=== PATIENT | male | born 1970 | race Caucasian/White ===

== ENCOUNTER → 2016-10-15 | Outpatient (CLI) | payer BC ==
[~2016-10-15] MED LIST: ATEN-173 PO; CLON0.5T3 PO; MULT-506 PO
--- NOTE | 2016-10-15 07:47 | DIAGNOSTIC IMAGING REPORT ---
ABDOMEN COMPLETE (US) CLINICAL HISTORY: Right upper quadrant abdominal pain. COMPARISON STUDY: Abdominal ultrasound November 18, 2014. FINDINGS: The liver is sonographically normal. There is no biliary ductal dilatation. The common bile duct measures 4 mm in caliber. There are no gallstones. The pancreas is largely obscured by overlying bowel gas. The size of the spleen is normal. The right kidney measures 10 cm and the left measures 9.3 cm. There is no hydronephrosis. The abdominal aorta is partially obscured but visualized portions are normal in caliber. There is no ascites. IMPRESSION: 1. No gallstones or biliary ductal dilatation. 2. Partially obscured pancreas. 3. No hydronephrosis. Electronically signed by: Jarvis Rivas M.D. 10/15/2016 7:45 AM Dictated Date/Time: 10/15/2016 7:40 AM
== END | disposition home or self-care (01) ==
LOC: C.ULTR 07:06
PROVIDERS: ATTEND Family Medicine
DX: R10.11 Right upper quadrant pain (principal)

== ENCOUNTER → 2016-11-19 | Outpatient (CLI) | payer BC ==
[~2016-11-19] MED LIST changes: +SINCALIDE INJ 1.6 MCG in SODIUM CHLORIDE 0.9% 100ML 100 ML IV ONE
--- NOTE | 2016-11-19 15:47 | DIAGNOSTIC IMAGING REPORT ---
CHEST 2 VIEWS ROUTINE HISTORY: 46 years-old Male EPIGASTRIC PAIN, PT WENT TO [facility] acute epigastric pain with shortness of breath and wheezing. COMPARISON: Chest radiograph 11/18/2014 TECHNIQUE: PA and lateral views of the chest FINDINGS: Cardiomediastinal and hilar silhouettes are within normal limits. There is atherosclerosis of the aorta. No pneumothorax, pleural effusion, focal airspace consolidation or overt pulmonary edema. Lungs are mildly hyperinflated. Bones of the chest appear grossly intact. IMPRESSION: No acute cardiopulmonary process. The above report was generated using voice recognition software. It may contain grammatical, syntax or spelling errors. Electronically signed by: Pablo Flores M.D. 11/19/2016 3:46 PM Dictated Date/Time: 11/19/2016 3:45 PM
--- NOTE | 2016-11-19 15:47 | DIAGNOSTIC IMAGING REPORT ---
HEPATOBILIARY EF IMAGING CLINICAL HISTORY: 46 years-old Male presenting with EPIGASTRIC PAIN, PT TO XRAY AFTER PLEASE. TECHNIQUE: Dynamic imaging of the gallbladder was initiated 65 minutes after administration of 5.3 mCi of technetium 99m Choletec. Imaging was obtained every 5 minutes over a span of 40 minutes. 1.6 mcg of sincalide was injected 5 minutes prior to the start of imaging. The gallbladder ejection fraction was calculated. COMPARISON: Ultrasound from 10/15/2016. FINDINGS: The hepatobiliary scan shows normal filling of the gallbladder at the start of imaging. Expected activity within the common duct and passage into the bowel. Gallbladder ejection fraction measured at 68% (normal greater than 50%). IMPRESSION: 1. Normal gallbladder ejection fraction. No evidence of chronic cholecystitis. Electronically signed by: Dominic Cortes M.D. 11/19/2016 3:45 PM Dictated Date/Time: 11/19/2016 3:42 PM
== END | disposition home or self-care (01) ==
LOC: C.NUCL 12:55
PROVIDERS: ATTEND Internal Medicine Gastroenterology
DX: R06.2 Wheezing (principal); R10.13 Epigastric pain

== ENCOUNTER → 2016-12-15 | Outpatient (CLI) | payer BC ==
[~2016-12-15] MED LIST changes: +ALBUAER INH; +AMLO-110 PO; +ARIP30TA3 PO; +DOCU100C31 PO; +FLAXCAP PO; +MONT1TAB3 PO; +MULT-190 PO; +PRT/20 PO; +SIMV10TA2 PO; -SINCALIDE INJ 1.6 MCG in SODIUM CHLORIDE 0.9% 100ML 100 ML IV ONE; +TOPI50TA16 PO
[2016-12-15 19:19] LABS: BASO % 0.2 %; BASO ABS # 0.02 K/uL (0-0.2); COMPLETE YES; EOS % 4.3 %; HEMATOCRIT 41.9 % (42-52); IG% 0.5 %; LYMPH % 39.1 %; LYMPH ABS # 3.18 K/uL (1.2-3.4); MEAN CELL VOLUME 88.2 fL (80-100); MEAN CORPUSCULAR HEMOGLOBIN 30.3 pg (25-34); MEAN CORPUSCULAR HGB CONC 34.4 g/dl (32-36); MEAN PLATELET VOLUME 9.2 fL (7.4-10.4); MONO % 5.7 %; NEUT % 50.2 %; PLATELET COUNT 208 K/uL (130-400); RED BLOOD COUNT 4.75 M/uL (4.7-6.1); WHITE BLOOD COUNT 8.13 K/uL (4.8-10.8)
[2016-12-15 19:28] LABS: URINE APPEARANCE CLEAR (CLEAR); URINE BILIRUBIN NEG (NEG); URINE COLOR YELLOW; URINE NITRITE NEG (NEG); URINE SPECIFIC GRAVITY 1.007 (1.000-1.030); UROBILINOGEN NEG (NEG)
[2016-12-15 19:35] LABS: MANUAL MICROSCOPIC REQUIRED? NO; REVIEW REQ? NO
[2016-12-15 19:38] LABS: ALT/SGPT 95 U/L (12-78); AST/SGOT 30 U/L (15-37); BLOOD UREA NITROGEN 11 mg/dl (7-18); BUN/CREATININE RATIO 8.4 (10-20); CALCIUM 8.6 mg/dl (8.5-10.1); CARBON DIOXIDE 26 mmol/L (21-32); CHLORIDE 110 mmol/L (98-107); CREATININE 1.26 mg/dl (0.60-1.40); GLUCOSE 92 mg/dl (70-99); SODIUM 140 mmol/L (136-145)
[2016-12-15 19:39] LABS: BENZODIAZEPINE, URINE NEG (NEG); COCAINE,URINE NEG (NEG); PHENCYCLIDINE, URINE NEG (NEG)
[2016-12-15 19:49] LABS: ALB/GLOB RATIO 1.3 (0.9-2); ALKALINE PHOSPHATASE 82 U/L (45-117); CHOLESTEROL 149 mg/dl (0-200); CHOLESTEROL/HDL RATIO 2.3; HDL CHOLESTEROL 66 mg/dl; LDL CHOLESTEROL CALCULATED 68 mg/dl; TRIGLYCERIDES 76 mg/dl (0-150); VERY LOW DENSITY LIPOPROT CALC 15 mg/dl
[2016-12-16 06:35] LABS: ESTIMATED AVERAGE GLUCOSE 105 mg/dl; HA1C FLAG Normal (Normal)
== END | disposition home or self-care (01) ==
LOC: C.LAB 18:43
PROVIDERS: ATTEND Psychiatry & Neurology Psychiatry
DX: F39 Unspecified mood [affective] disorder (principal); F41.9 Anxiety disorder, unspecified; G47.9 Sleep disorder, unspecified

== ENCOUNTER 2022-10-19 22:06 | Observation (INO) ==
[2022-10-19] MEDS ORDERED: LORazepam 2 MG/1 ML VIAL IV STA (22:23)
[2022-10-19] MEDS ORDERED: SODIUM CHLORIDE 0.9% 1,000 ML IV SCH (22:30)
[2022-10-19 22:58] LABS: Basophils # (auto) 0.02 K/uL (0.00-0.20); Basophils % (auto) 0.2 %; Hemoglobin 15.1 g/dl (14.0-18.0); Immature Granulocytes # (auto) 0.08 K/uL (0.01-0.20); Immature Granulocytes % (auto) 0.6 %; Lymphocytes # (auto) 2.25 K/uL (1.20-3.40); Lymphocytes % (auto) 18.1 %; Mean Corpuscular Hemoglobin 29.4 pg (25.0-34.0); Mean Corpuscular Hgb Conc 34.3 g/dL (32.0-36.0); Mean Corpuscular Volume 85.8 fL (80.0-100.0); Mean Platelet Volume 9.7 fL (9.4-12.4); Monocytes % (auto) 5.6 %; Neutrophils # (auto) 9.37 K/uL (1.40-6.50); Neutrophils % (auto) 75.5 %; Platelet Count 273 K/uL (130-400); RDW Coefficient of Variation 13.2 % (11.5-14.5); RDW Standard Deviation 41.6 fL (36.4-46.3); Red Blood Count 5.13 M/uL (4.70-6.10); White Blood Count 12.42 K/ul (4.8-10.8)
[2022-10-19 23:17] LABS: BUN Creatinine Ratio 15.5 (10-20); Calcium 9.5 mg/dl (8.6-10.3); Creatinine Clr Calc Pharmacy 54.4 ml/min; Est GFR (African American) 53.3 ml/min; Potassium 3.9 mmol/L (3.5-5.1)
[2022-10-19 23:23] LABS: Troponin I High Sensitivity 2.5 pg/ml (0-20)
--- NOTE | 2022-10-19 23:26 | Emergency Department Note ---
History of Present Illness General Chief complaint: Illness Stated complaint: "FACE LOCKING UP" Time Seen by Provider: 10/19/22 22:22 History of Present Illness This is a 52-year-old male presenting to the emergency department via EMS for evaluation that his face is "locking up". Patient has recent diagnosis of Lyme disease from this facility about a week ago, and is tolerating his doxycycline well. He recently followed with nephrology for some chronic kidney disease. The patient was at home unplugging a television when he felt tightness primarily in the left side of his face and had difficulty moving his jaw. He did not have any neck pain, chest pain, chest tightness, or shortness of breath with this event. He contacted EMS, and on arrival the patient was quite diaphoretic and had a difficult time with moving his jaw to speak. Patient has been able to move arms and legs without any difficulty. He is on carbidopa levodopa for parkinsonian-like disease, which could be contributing to facial spasm. 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 The patient does not have any recent fevers or chills. On arrival to triage he is nervous, but otherwise without complaint. Home Medications Medication Instructions Recorded Confirmed Type pantoprazole 20 mg tablet,delayed 20 mg PO QPM 07/23/19 10/19/22 History release simvastatin 10 mg tablet 10 mg PO QPM 07/23/19 10/19/22 History montelukast 10 mg tablet 10 mg PO QPM 10/20/19 10/19/22 History metoprolol succinate 50 mg 50 mg PO QPM 08/17/20 10/19/22 History tablet,extended release 24 hr ipratropium 0.5 mg-albuterol 3 mg 3 ml inhalation QID PRN shortness 08/22/20 10/19/22 Rx (2.5 mg base)/3 mL nebulization of breath or wheezing #120 vials soln ipratropium 20 mcg-albuterol 100 1 puff inhalation Q6H PRN 09/07/21 10/19/22 Rx mcg/actuation mist for inhalation Shortness Of Breath #4 grams (Combivent Respimat) benralizumab 30 mg/mL subcutaneous See Rx Instructions .Route 11/30/21 10/19/22 Rx syringe (Fasenra) .COMPLEX #1 mL fluoxetine 20 mg capsule (Prozac) 20 mg PO QAM 04/13/22 10/19/22 History nwlpcsxfgb-kgdcopybtsbmo-agwfglwb 1 - 2 tab PO .COMPLEX PRN headache 04/14/22 10/19/22 Rx 50 mg-325 mg-40 mg tablet #12 tabs carbidopa 25 mg-levodopa 100 mg 2 tab PO BID 90 days #360 tabs 07/14/22 10/19/22 Rx tablet (Sinemet) galcanezumab-gnlm 120 mg/mL 120 mg subcut .COMPLEX #1 mL 07/14/22 10/19/22 Rx subcutaneous pen injector (Emgality Pen) lurasidone 40 mg tablet (Latuda) 60 mg PO QPM 07/14/22 10/19/22 History rimegepant 75 mg disintegrating 75 mg PO .COMPLEX #8 tabs 07/14/22 10/19/22 Rx tablet (Nurtec ODT) rizatriptan 10 mg tablet (Maxalt) 10 mg PO .COMPLEX PRN migraine 07/14/22 10/19/22 Rx headache 30 days #9 tabs doxycycline hyclate 100 mg capsule 100 mg PO BID 14 days #28 caps 10/11/22 10/19/22 Rx fluticasone fur. 200 mcg-umeclid 1 ea inhalation QAM 10/11/22 10/19/22 History 62.5 mcg-vilant 25 mcg inhalat.powder (Trelegy Ellipta) ondansetron 4 mg disintegrating 4 mg PO Q6H PRN nausea and 10/11/22 10/19/22 Rx tablet vomiting #12 tabs Allergies Allergy/AdvReac Type Severity Reaction Status Date / Time peanut Allergy Intermediate Rash Verified 10/19/22 22:57 walnut Allergy Intermediate Rash Verified 10/19/22 22:57 lamotrigine Allergy Mild Rash Verified 10/19/22 22:57 pineapple Allergy Unknown Unknown Verified 10/19/22 22:57 tramadol AdvReac Mild NAUSEA/VOMI Verified 10/19/22 22:57 TING varenicline AdvReac Unknown Unknown Verified 10/19/22 22:57 Past Med/Surg History Medical History Essential hypertension Major depressive disorder Pulmonary nodule Surgical History H/O atrial septal defect repair S/P tonsillectomy Family History Father Aortic stenosis Grandfather (Maternal) Prostate cancer Grandfather (Paternal) Prostate cancer Sister Thyroid cancer Social History Smoking Status: Current every day smoker Tobacco Type: Cigarettes Age Started Using Tobacco: 18; Age Quit Using Tobacco: 44; packs per day: 1; Preferred Language: Nepali Communication Ability: Effective 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 Beliefs That Will Affect Care: None Feels Safe at Home: Yes Assistive Devices: None Review of Systems A total of 10 systems reviewed and were otherwise negative Physical Exam Vital Signs Vital Signs - 24 hr 10/19/22 22:09 10/19/22 22:28 Temperature 36.9 C Temperature Source Oral Pulse Rate 68 63 Respiratory Rate 18 Respiratory Effort / Characteristics Non-Labored Spontaneous Respiratory Depth Normal Blood Pressure 115/76 Blood Pressure Mean 89 Pulse Oximetry 98 Sepsis Recent Fever Within 48 Hours No Sepsis New/Unexplained Change in Mental Status No Sepsis Action Taken by Nursing No Action Required VITALS: Vitals are noted on the nurse's note and reviewed by myself. Vital signs stable. GENERAL: Well-developed, well-nourished, white male, who is in no acute distress and resting comfortably. Patient is cooperative with the examination. HEAD: Normocephalic atraumatic. MOUTH: Mucous membranes moist. Tonsils are not enlarged. Pharynx without erythema, blood, or exudate. Uvula midline. Airway patent. NECK: Supple without nuchal rigidity. No lymphadenopathy. No thyromegaly. Cervical spine is nontender. HEART: Regular rate and rhythm without murmurs gallops or rubs. LUNGS: Clear to auscultation bilaterally without wheezes, rales or rhonchi. No retractions or accessory muscle use. ABDOMEN: Positive normal bowel sounds x 4. Soft, nontender, without masses or organomegaly. No guarding or rebound tenderness. MUSCULOSKELETAL: No muscle atrophy, erythema, or edema noted. Full range of motion in all extremities. Course Administered Medications Carbidopa/Levodopa (Carbidopa/Levodopa 25/100mg Tab) 2 tab PO BID [facility] Stop: 11/19/22 08:59 Last Admin: 10/20/22 20:48 Dose: 2 tab Documented By: Admin: 10/20/22 09:17 Dose: 2 tab Documented By: POORNIMA Doxycycline Hyclate (Doxycycline Hyclate 100 Mg Cap) 100 mg PO BID [facility] Stop: 10/30/22 12:33 Last Admin: 10/20/22 20:48 Dose: 100 mg Documented By: Admin: 10/20/22 13:30 Dose: 100 mg Documented By: POORNIMA Fluoxetine HCl (Fluoxetine Hcl 20 Mg Cap) 20 mg PO QAM [facility] Stop: 11/19/22 08:59 Last Admin: 10/20/22 09:17 Dose: 20 mg Documented By: POORNIMA Fluticasone Furoate (Fluticasone Furoate 200mcg 14 Puffs/Inhaler) 1 puffs INH DAILY [facility] Stop: 11/19/22 08:59 Last Admin: 10/20/22 09:19 Dose: 1 puffs Documented By: POORNIMA Heparin Sodium (Porcine) (Heparin Sod 5,000 Unit/0.5 Ml Vial) 5,000 units SQ Q8 [facility] Stop: 11/19/22 05:59 Last Admin: 10/20/22 20:48 Dose: Not Given Documented By: Admin: 10/20/22 16:06 Dose: Not Given Documented By: Admin: 10/20/22 06:13 Dose: 5,000 units Documented By: ZAFAR Ceftriaxone Sodium 2,000 mg/ (Dextrose) 70 mls @ 100 mls/hr IV Q24H [facility]; Protocol Stop: 10/30/22 02:59 Last Infusion: 10/20/22 05:23 Dose: 0 mls/hr Documented By: Admin: 10/20/22 04:44 Dose: 100 mls/hr Documented By: ZAFAR Sodium Chloride (Nss 1000ml) 1,000 mls @ 80 mls/hr IV .[id number] [facility] Stop: 11/19/22 12:33 Last Admin: 10/20/22 13:33 Dose: 80 mls/hr Documented By: POORNIMA Lurasidone HCl (Lurasidone Hcl 40 Mg Tab) 60 mg PO QDD [facility] Stop: 11/19/22 16:29 Last Admin: 10/20/22 17:58 Dose: 60 mg Documented By: POORNIMA Montelukast Sodium (Montelukast Sodium 10 Mg Tablet) 10 mg PO QPM [facility] Stop: 11/19/22 20:59 Last Admin: 10/20/22 20:48 Dose: 10 mg Documented By: ZOË Pantoprazole Sodium (Pantoprazole 40 Mg Tab) 40 mg PO QPM [facility] Stop: 11/19/22 20:59 Last Admin: 10/20/22 20:48 Dose: 40 mg Documented By: ZOË Simvastatin (Simvastatin 10 Mg Tab) 10 mg PO QPM [facility] Stop: 11/19/22 20:59 Last Admin: 10/20/22 20:48 Dose: 10 mg Documented By: ZOË Umeclidinium/Vilanterol (Umeclidinium/Vilanterol 62.5/25mcg 7 Puffs/Inhaler) 1 puffs INH DAILY [facility] Stop: 11/19/22 08:59 Last Admin: 10/20/22 09:18 Dose: 1 puffs Documented By: POORNIMA Discontinued Medications Sodium Chloride (Nss 1000ml) 1,000 mls @ 999 mls/hr IV .Q1H1M [facility] Stop: 10/19/22 23:30 Last Infusion: 10/20/22 00:24 Dose: 0 mls/hr Documented By: Admin: 10/19/22 22:39 Dose: 999 mls/hr Documented By: Sodium Chloride (Nss 1000ml) 1,000 mls @ 999 mls/hr IV .Q1H1M [facility] Stop: 10/20/22 02:00 Last Infusion: 10/20/22 03:20 Dose: 0 mls/hr Documented By: Admin: 10/20/22 02:07 Dose: 999 mls/hr Documented By: Infusion: 10/20/22 02:06 Dose: 0 mls/hr Documented By: Admin: 10/20/22 00:31 Dose: 999 mls/hr Documented By: Vancomycin HCl 1,750 mg/ (Sodium Chloride) 535 mls @ 200 mls/hr IV NOW ONE Stop: 10/20/22 03:04 Last Admin: 10/20/22 01:07 Dose: 200 mls/hr Documented By: Piperacillin Sod/Tazobactam Sod (Zosyn) 4.5 gm in 120 mls @ 240 mls/hr IV NOW ONE Stop: 10/20/22 00:53 Last Infusion: 10/20/22 01:09 Dose: 0 mls/hr Documented By: Admin: 10/20/22 00:33 Dose: 240 mls/hr Documented By: Sodium Chloride (Nss 1000ml) 1,000 mls @ 125 mls/hr IV .Q8H [facility] Stop: 10/20/22 20:14 Last Infusion: 10/20/22 13:39 Dose: 0 mls/hr Documented By: Admin: 10/20/22 11:31 Dose: 125 mls/hr Documented By: Infusion: 10/20/22 11:31 Dose: 125 mls/hr Documented By: Admin: 10/20/22 04:45 Dose: 125 mls/hr Documented By: ZAFAR Lorazepam (Lorazepam 2 Mg/1 Ml Vial) 0.5 mg IV NOW STA Stop: 10/19/22 22:24 Last Admin: 10/19/22 22:42 Dose: 0.5 mg Documented By: Medical Decision Making Differential Diagnosis Differential diagnosis includes, but is not limited to: Myocardial infarction, dysrhythmia, pericarditis, pneumothorax, aortic aneurysm/dissection, DVT/PE, anxiety, GERD, PUD, electrolyte imbalance, thyroid disorder, pneumonia, bronchitis, pancreatitis, and others Laboratory Data 10/19/22 22:34 10/19/22 22:34 Lab Results 10/19/22 10/19/22 10/19/22 Range/Units 22:34 22:34 22:34 WBC 12.42 H (4.8-10.8) K/ul RBC 5.13 (4.70-6.10) M/uL Hgb 15.1 (14.0-18.0) g/dl Hct 44.0 (42.0-52.0) % MCV 85.8 (80.0-100.0) fL MCH 29.4 (25.0-34.0) pg MCHC 34.3 (32.0-36.0) g/dL RDW Std Deviation 41.6 (36.4-46.3) fL RDW Coeff of Ian 13.2 (11.5-14.5) % Plt Count 273 (130-400) K/uL MPV 9.7 (9.4-12.4) fL Immature Gran % (Auto) 0.6 % Neut % (Auto) 75.5 % Lymph % (Auto) 18.1 % [place] % (Auto) 5.6 % Eos % (Auto) 0.0 % Baso % (Auto) 0.2 % Neut # (Auto) 9.37 H (1.40-6.50) K/uL Lymph # (Auto) 2.25 (1.20-3.40) K/uL [place] # (Auto) 0.70 H (0.11-0.59) K/uL Eos # (Auto) 0.00 (0.00-0.50) K/uL Baso # (Auto) 0.02 (0.00-0.20) K/uL Immature Gran # (Auto) 0.08 (0.01-0.20) K/uL Sodium 135 L (136-145) mmol/L Potassium 3.9 (3.5-5.1) mmol/L Chloride 100 (98-107) mmol/L Carbon Dioxide 24 (21-32) mmol/L Anion Gap 11 (3-11) BUN 26 H (6-23) mg/dl Creatinine 1.68 H (0.6-1.4) mg/dl Est Cr Clr Drug Dosing 54.4 ml/min Est GFR ( Amer) 53.3 ml/min Est GFR (Non-Af Amer) 46.0 ml/min BUN/Creatinine Ratio 15.5 (10-20) Glucose 138 H (70-99(Fasting)) mg/dl Lactate (0.4-2.0) mmol/L Calcium 9.5 (8.6-10.3) mg/dl Magnesium 1.8 (1.7-2.4) mg/dl Total Bilirubin 0.5 (0.2-1.0) mg/dl AST 13 (13-39) U/L ALT 3 L (7-52) U/L Alkaline Phosphatase 63 (34-104) U/L Troponin I High Sens 2.5 (0-20) pg/ml Total Protein 7.2 (6.0-8.3) gm/dl Albumin 4.7 (3.4-5.0) gm/dl Globulin 2.5 (2.5-4.0) gm/dl Albumin/Globulin Ratio 1.9 (0.9-2) Free T4 (0.61-1.60) ng/dl Free T3 (2.3-4.2) pg/ml Ethyl Alcohol mg/dL (<10.0) mg/dl Adenovirus (PCR) Not Detected (NotDetected) B. pertussis DNA (PCR) Not Detected (NotDetected) B.parapertussis DNA PCR Not Detected (NotDetected) C. pneumoniae DNA (PCR) Not Detected (NotDetected) Coronavirus OC43 (PCR) Not Detected (NotDetected) Coronavirus HKU1 (PCR) Not Detected (NotDetected) Coronavirus 229E (PCR) Not Detected (NotDetected) SARS-CoV-2 (PCR) Not Detected (NotDetected) Coronavirus NL63 (PCR) Not Detected (NotDetected) Human Metapneumovir PCR Not Detected (NotDetected) Influenza Type A (PCR) Not Detected (NotDetected) Influenza Type B (PCR) Not Detected (NotDetected) M. pneumoniae (PCR) Not Detected (NotDetected) Parainfluenza 1 (PCR) Not Detected (NotDetected) Parainfluenza 2 (PCR) Not Detected (NotDetected) Parainfluenza 3 (PCR) Not Detected (NotDetected) Parainfluenza 4 (PCR) Not Detected (NotDetected) RSV (PCR) Not Detected (NotDetected) Entero/Rhino (PCR) Not Detected (NotDetected) 10/19/22 10/19/22 10/19/22 Range/Units 22:34 22:34 23:56 WBC (4.8-10.8) K/ul RBC (4.70-6.10) M/uL Hgb (14.0-18.0) g/dl Hct (42.0-52.0) % MCV (80.0-100.0) fL MCH (25.0-34.0) pg MCHC (32.0-36.0) g/dL RDW Std Deviation (36.4-46.3) fL RDW Coeff of Ian (11.5-14.5) % Plt Count (130-400) K/uL MPV (9.4-12.4) fL Immature Gran % (Auto) % Neut % (Auto) % Lymph % (Auto) % [place] % (Auto) % Eos % (Auto) % Baso % (Auto) % Neut # (Auto) (1.40-6.50) K/uL Lymph # (Auto) (1.20-3.40) K/uL [place] # (Auto) (0.11-0.59) K/uL Eos # (Auto) (0.00-0.50) K/uL Baso # (Auto) (0.00-0.20) K/uL Immature Gran # (Auto) (0.01-0.20) K/uL Sodium (136-145) mmol/L Potassium (3.5-5.1) mmol/L Chloride (98-107) mmol/L Carbon Dioxide (21-32) mmol/L Anion Gap (3-11) BUN (6-23) mg/dl Creatinine (0.6-1.4) mg/dl Est Cr Clr Drug Dosing ml/min Est GFR ( Amer) ml/min Est GFR (Non-Af Amer) ml/min BUN/Creatinine Ratio (10-20) Glucose (70-99(Fasting)) mg/dl Lactate (0.4-2.0) mmol/L Calcium (8.6-10.3) mg/dl Magnesium (1.7-2.4) mg/dl Total Bilirubin (0.2-1.0) mg/dl AST (13-39) U/L ALT (7-52) U/L Alkaline Phosphatase (34-104) U/L Troponin I High Sens (0-20) pg/ml Total Protein (6.0-8.3) gm/dl Albumin (3.4-5.0) gm/dl Globulin (2.5-4.0) gm/dl Albumin/Globulin Ratio (0.9-2) Free T4 1.24 (0.61-1.60) ng/dl Free T3 4.14 (2.3-4.2) pg/ml Ethyl Alcohol mg/dL < 10.0 (<10.0) mg/dl Adenovirus (PCR) (NotDetected) B. pertussis DNA (PCR) (NotDetected) B.parapertussis DNA PCR (NotDetected) C. pneumoniae DNA (PCR) (NotDetected) Coronavirus OC43 (PCR) (NotDetected) Coronavirus HKU1 (PCR) (NotDetected) Coronavirus 229E (PCR) (NotDetected) SARS-CoV-2 (PCR) (NotDetected) Coronavirus NL63 (PCR) (NotDetected) Human Metapneumovir PCR (NotDetected) Influenza Type A (PCR) (NotDetected) Influenza Type B (PCR) (NotDetected) M. pneumoniae (PCR) (NotDetected) Parainfluenza 1 (PCR) (NotDetected) Parainfluenza 2 (PCR) (NotDetected) Parainfluenza 3 (PCR) (NotDetected) Parainfluenza 4 (PCR) (NotDetected) RSV (PCR) (NotDetected) Entero/Rhino (PCR) (NotDetected) 10/19/22 Range/Units 23:56 WBC (4.8-10.8) K/ul RBC (4.70-6.10) M/uL Hgb (14.0-18.0) g/dl Hct (42.0-52.0) % MCV (80.0-100.0) fL MCH (25.0-34.0) pg MCHC (32.0-36.0) g/dL RDW Std Deviation (36.4-46.3) fL RDW Coeff of Ian (11.5-14.5) % Plt Count (130-400) K/uL MPV (9.4-12.4) fL Immature Gran % (Auto) % Neut % (Auto) % Lymph % (Auto) % [place] % (Auto) % Eos % (Auto) % Baso % (Auto) % Neut # (Auto) (1.40-6.50) K/uL Lymph # (Auto) (1.20-3.40) K/uL [place] # (Auto) (0.11-0.59) K/uL Eos # (Auto) (0.00-0.50) K/uL Baso # (Auto) (0.00-0.20) K/uL Immature Gran # (Auto) (0.01-0.20) K/uL Sodium (136-145) mmol/L Potassium (3.5-5.1) mmol/L Chloride (98-107) mmol/L Carbon Dioxide (21-32) mmol/L Anion Gap (3-11) BUN (6-23) mg/dl Creatinine (0.6-1.4) mg/dl Est Cr Clr Drug Dosing ml/min Est GFR ( Amer) ml/min Est GFR (Non-Af Amer) ml/min BUN/Creatinine Ratio (10-20) Glucose (70-99(Fasting)) mg/dl Lactate 2.5 H* (0.4-2.0) mmol/L Calcium (8.6-10.3) mg/dl Magnesium (1.7-2.4) mg/dl Total Bilirubin (0.2-1.0) mg/dl AST (13-39) U/L ALT (7-52) U/L Alkaline Phosphatase (34-104) U/L Troponin I High Sens (0-20) pg/ml Total Protein (6.0-8.3) gm/dl Albumin (3.4-5.0) gm/dl Globulin (2.5-4.0) gm/dl Albumin/Globulin Ratio (0.9-2) Free T4 (0.61-1.60) ng/dl Free T3 (2.3-4.2) pg/ml Ethyl Alcohol mg/dL (<10.0) mg/dl Adenovirus (PCR) (NotDetected) B. pertussis DNA (PCR) (NotDetected) B.parapertussis DNA PCR (NotDetected) C. pneumoniae DNA (PCR) (NotDetected) Coronavirus OC43 (PCR) (NotDetected) Coronavirus HKU1 (PCR) (NotDetected) Coronavirus 229E (PCR) (NotDetected) SARS-CoV-2 (PCR) (NotDetected) Coronavirus NL63 (PCR) (NotDetected) Human Metapneumovir PCR (NotDetected) Influenza Type A (PCR) (NotDetected) Influenza Type B (PCR) (NotDetected) M. pneumoniae (PCR) (NotDetected) Parainfluenza 1 (PCR) (NotDetected) Parainfluenza 2 (PCR) (NotDetected) Parainfluenza 3 (PCR) (NotDetected) Parainfluenza 4 (PCR) (NotDetected) RSV (PCR) (NotDetected) Entero/Rhino (PCR) (NotDetected) MDM Narrative Physical exam and history were performed. Nursing notes, EMR, and Medication List were personally reviewed. No social concerns were identified as barriers to patients care. Patient appears to have facial pain/spasm bring him to the ER. Patient arrives to the ER during a period of very high ER volume and acuity with extended wait times of greater than 5 hours. The patient complained from home for EMS was somewhat vague, and I did meet EMS in triage with the patient to perform initial stroke evaluation. On arrival to the ER the patient seems well and essentially is without complaints. As the triage process began, the patient was answering questions without any difficulty. He did voice some concern that he wanted something "for my nerves". The patient then commented that he was very "tired". After stating that he was tired the patient put his head down and had a syncopal episode. He was not responsive to sternal rub. Airway assessment was performed, as well as pulse check. I did listen to his heart sounds, and he did not have obvious dysrhythmia. We were able to transfer the patient to room A10. Episode lasted for roughly 30 to 45 seconds before patient began to recover. He was very diaphoretic after the episode. Patient's blood work is as above and was reviewed. He does have a slightly elevated white count of 12,000. He does not have significant anemia, bandemia, or gross electrolyte imbalance. Creatinine is 1.68, and lactic is slightly elevated. Because of the patient's symptoms he was given a sepsis fluid bolus and empirically started on vancomycin and Zosyn. An order was placed for continuous cardiac monitoring. The monitor shows a rate of 64 with normal sinus rhythm. Overall the patient does not appear well for discharge home. He had a witnessed syncopal episode and may be septic from an unknown source. The case was discussed with the on-call hospitalist team, who agreed to evaluate the patient here in the ER. Please see the hospitalist dictation for further patient course, plan, disposition. The chart was completed utilizing [employer] Voice Recognition Software. Grammatical errors, random word insertions, pronoun errors, and incomplete s entences are an occasional consequence of this system due to software limitations, ambient noise, and hardware issues. Any formal questions or concerns about the content, text, or information contained within the body of this dictation should be directly addressed to the provider for clarification. . Impression & Plan Syncope, Elevated lactic acid level Discharge Plan Visit Data Chief Complaint: Illness Stated Complaint: "FACE LOCKING UP" ED Provider: Jaylene Jimenes ED Midlevel Provider: Valente Caicedo Discharge Problem: Syncope, Elevated lactic acid level Patient Disposition: Admitted As Inpatient Discharge Instructions Interventions: ED Discharge Assessment Last Done: 10/20/22 01:50
[2022-10-19 23:37] LABS: Adenovirus PCR Not Detected (NotDetected); Bordetella parapertussis PCR Not Detected (NotDetected); Bordetella pertussis PCR Not Detected (NotDetected); Chlamydia pneumoniae PCR Not Detected (NotDetected); Coronavirus 229E PCR Not Detected (NotDetected); Coronavirus CoV-2 (COVID19)PCR Not Detected (NotDetected); Coronavirus HKU1 PCR Not Detected (NotDetected); Coronavirus NL63 PCR Not Detected (NotDetected); Coronavirus OC43PCR Not Detected (NotDetected); Human Metapneumovirus PCR Not Detected (NotDetected); Influenza A PCR Not Detected (NotDetected); Influenza B PCR Not Detected (NotDetected); Mycoplasma pneumoniae PCR Not Detected (NotDetected); Parainfluenza Virus 1 PCR Not Detected (NotDetected); Parainfluenza Virus 2 PCR Not Detected (NotDetected); Parainfluenza Virus 3 PCR Not Detected (NotDetected); Parainfluenza Virus 4 PCR Not Detected (NotDetected); Respiratory Syncytial VirusPCR Not Detected (NotDetected); Rhinovirus/Enterovirus PCR Not Detected (NotDetected)
[2022-10-19 23:48] LABS: Albumin Globulin Ratio 1.9 (0.9-2); Albumin Level 4.7 gm/dl (3.4-5.0); Bilirubin,Total 0.5 mg/dl (0.2-1.0); Globulin 2.5 gm/dl (2.5-4.0); Magnesium 1.8 mg/dl (1.7-2.4); Total Protein 7.2 gm/dl (6.0-8.3)
[2022-10-20] MEDS ORDERED: VANCOMYCIN HCL 1,750 MG in SODIUM CHLORIDE 0.9% 500 ML IV ONE (00:24)
[2022-10-20] MEDS ORDERED: VANCOMYCIN CONSULT ACTIVE PRN (00:24)
[2022-10-20] MEDS ORDERED: PIPERACILLIN/TAZOBACTAM 4.5 GM/120 ML BAG IV ONE (00:24)
[2022-10-20] MEDS: SODIUM CHLORIDE 0.9% 1,000 ML IV SCH ×6 (00:31→23:46)
--- NOTE | 2022-10-20 01:21 | History & Physical Report ---
Date of Service October 20, 2022 Assessment & Plan (1) Lyme disease: Plan: Patient recently diagnosed with Lyme disease. He has been on doxycycline. ?Possible lyme carditis with bradycardia, facial pain, syncope? -Ceftriaxone 2gm IV daily (2) Syncope: Plan: Etiology unclear. ?Autonomic dysfunction in PD. (3) Dyslipidemia: Plan: -Continue Simvastatin (4) Hypertension: Plan: -Continue Metoprolol History of Present Illness Chief Complaint: syncope Primary Care Provider: DO Jarvis Holman Adair is a 52yoMale male with history of hypertension, hyperlipidemia, COPD presenting with episode of syncope. Patient reports that he has frequent episodes where he has tensing of his muscles of his neck and his face and "does not have control over his body". These episodes have been occurring over the last 3 to 4 months. They last approximately 1 hour and usually and with him passing out. He does report that he can feel these episodes coming on because he becomes cold and breaks into a sweat. He denies losing consciousness or having incontinence. No chest pain or palpitations preceding or following these episodes. This evening patient came to the ER with/complaints As well as left- sided facial pain and nausea and vomiting ongoing for the last 10 days. While being evaluated at triage, patient had an episode of unresponsiveness that lasted approximately 30 to 45 seconds. Per ENLLY Caicedo, patient did not respond to voice or noxious stimuli (deep sternal rub). patient maintained a pulse and protected his airway throughout the episode. No confusion or postictal state following his return to consciousness. Allergies Allergy/AdvReac Type Severity Reaction Status Date / Time peanut Allergy Intermediate Rash Verified 10/19/22 22:57 walnut Allergy Intermediate Rash Verified 10/19/22 22:57 lamotrigine Allergy Mild Rash Verified 10/19/22 22:57 pineapple Allergy Unknown Unknown Verified 10/19/22 22:57 tramadol AdvReac Mild NAUSEA/VOMI Verified 10/19/22 22:57 TING varenicline AdvReac Unknown Unknown Verified 10/19/22 22:57 Home Medications Medication Instructions Recorded Confirmed Type pantoprazole 20 mg tablet,delayed 20 mg PO QPM 07/23/19 10/19/22 History release simvastatin 10 mg tablet 10 mg PO QPM 07/23/19 10/19/22 History montelukast 10 mg tablet 10 mg PO QPM 10/20/19 10/19/22 History metoprolol succinate 50 mg 50 mg PO QPM 08/17/20 10/19/22 History tablet,extended release 24 hr ipratropium 0.5 mg-albuterol 3 mg 3 ml inhalation QID PRN shortness 08/22/20 10/19/22 Rx (2.5 mg base)/3 mL nebulization of breath or wheezing #120 vials soln ipratropium 20 mcg-albuterol 100 1 puff inhalation Q6H PRN 09/07/21 10/19/22 Rx mcg/actuation mist for inhalation Shortness Of Breath #4 grams (Combivent Respimat) benralizumab 30 mg/mL subcutaneous See Rx Instructions .Route 11/30/21 10/19/22 Rx syringe (Fasenra) .COMPLEX #1 mL fluoxetine 20 mg capsule (Prozac) 20 mg PO QAM 04/13/22 10/19/22 History xpiwmarqfn-spcyfjxursssr-eovcrpdf 1 - 2 tab PO .COMPLEX PRN headache 04/14/22 10/19/22 Rx 50 mg-325 mg-40 mg tablet #12 tabs carbidopa 25 mg-levodopa 100 mg 2 tab PO BID 90 days #360 tabs 07/14/22 10/19/22 Rx tablet (Sinemet) galcanezumab-gnlm 120 mg/mL 120 mg subcut .COMPLEX #1 mL 07/14/22 10/19/22 Rx subcutaneous pen injector (Emgality Pen) lurasidone 40 mg tablet (Latuda) 60 mg PO QPM 07/14/22 10/19/22 History rimegepant 75 mg disintegrating 75 mg PO .COMPLEX #8 tabs 07/14/22 10/19/22 Rx tablet (Nurtec ODT) rizatriptan 10 mg tablet (Maxalt) 10 mg PO .COMPLEX PRN migraine 07/14/22 10/19/22 Rx headache 30 days #9 tabs doxycycline hyclate 100 mg capsule 100 mg PO BID 14 days #28 caps 10/11/22 10/19/22 Rx fluticasone fur. 200 mcg-umeclid 1 ea inhalation QAM 10/11/22 10/19/22 History 62.5 mcg-vilant 25 mcg inhalat.powder (Trelegy Ellipta) ondansetron 4 mg disintegrating 4 mg PO Q6H PRN nausea and 10/11/22 10/19/22 Rx tablet vomiting #12 tabs Past Med/Surg History Medical History Essential hypertension Major depressive disorder Pulmonary nodule Surgical History H/O atrial septal defect repair S/P tonsillectomy Family History Father Aortic stenosis Grandfather (Maternal) Prostate cancer Grandfather (Paternal) Prostate cancer Sister Thyroid cancer Social History Smoking Status: Current every day smoker Tobacco Type: Cigarettes Age Started Using Tobacco: 18; Age Quit Using Tobacco: 44; packs per day: 1; Preferred Language: Kiswahili Feels Safe at Home: Yes Review of Systems Review of Systems: All systems reviewed & are unremarkable except as noted in HPI & below Physical Exam Physical Exam: General: patient resting comfortably, NAD, non-toxic in appearance, AA&O x 4 Skin: warm, dry, intact, no rashes or lesions HEENT: NC/AT, PERRL, EOMI, anicteric sclera, conjunctiva without injection, external ear normal to inspection and nontender, nares patent, moist mucus membranes, dentition intact, no oropharyngeal lesions, neck supple, trachea midline, no LAD, no thyromegaly, no JVD Heart: +S1/S2, regular, no m/r/g Lungs: equal air entry bilaterally, no rales/rhonchi/wheezes Abd: +BS, soft, NT/ND, no masses/organomegaly/ascites Ext: warm, 2+ pulses in UE/LE bilaterally, no clubbing/cyanosis or edema Neuro: nonfocal, patient AA&O x 4, speech intact, no facial droop, moving all extremities on command with equal strength 5/5 Results & Data Results & Data Vital Signs (Past 12 Hours) Vital Signs Temp Pulse Resp BP Pulse Ox 10/19/22 22:28 63 10/19/22 22:09 36.9 C 68 18 115/76 98 Laboratory Results Laboratory Results WBC 12.42 K/ul (4.8-10.8) H 10/19/22 22:34 RBC 5.13 M/uL (4.70-6.10) 10/19/22 22:34 Hgb 15.1 g/dl (14.0-18.0) 10/19/22 22:34 Hct 44.0 % (42.0-52.0) 10/19/22 22:34 MCV 85.8 fL (80.0-100.0) 10/19/22 22:34 MCH 29.4 pg (25.0-34.0) 10/19/22 22: MCHC 34.3 g/dL (32.0-36.0) 10/19/22 22: RDW Std Deviation 41.6 fL (36.4-46.3) 10/19/22 22: RDW Coeff of Ian 13.2 % (11.5-14.5) 10/19/22 22: Plt Count 273 K/uL (130-400) 10/19/22 22:34 MPV 9.7 fL (9.4-12.4) 10/19/22 22:34 Immature Gran % (Auto) 0.6 % 10/19/22 22:34 Neut % (Auto) 75.5 % 10/19/22 22:34 Lymph % (Auto) 18.1 % 10/19/22 22:34 [place] % (Auto) 5.6 % 10/19/22 22:34 Eos % (Auto) 0.0 % 10/19/22 22:34 Baso % (Auto) 0.2 % 10/19/22 22:34 Neut # (Auto) 9.37 K/uL (1.40-6.50) H 10/19/22 22:34 Lymph # (Auto) 2.25 K/uL (1.20-3.40) 10/19/22 22:34 [place]calfe # (Auto) 0.70 K/uL (0.11-0.59) H 10/19/22 22:34 Eos # (Auto) 0.00 K/uL (0.00-0.50) 10/19/22 22:34 Baso # (Auto) 0.02 K/uL (0.00-0.20) 09/05/23 22:34 Immature Gran # (Auto) 0.08 K/uL (0.01-0.20) 10/19/22 22:34 Sodium 135 mmol/L (136-145) L 10/19/22 22:34 Potassium 3.9 mmol/L (3.5-5.1) 10/19/22 22:34 Chloride 100 mmol/L (98-107) 10/19/22 22:34 Carbon Dioxide 24 mmol/L (21-32) 10/19/22 22:34 Anion Gap 11 (3-11) 10/19/22 22:34 BUN 26 mg/dl (6-23) H 10/19/22 22:34 Creatinine 1.68 mg/dl (0.6-1.4) H 10/19/22 22:34 Est Cr Clr Drug Dosing 54.4 ml/min 10/19/22 22:34 Est GFR ( Amer) 53.3 ml/min 10/19/22 22:34 Est GFR (Non-Af Amer) 46.0 ml/min 10/19/22 22:34 BUN/Creatinine Ratio 15.5 (10-20) 10/19/22 22:34 Glucose 138 mg/dl (70-99(Fasting)) H 10/19/22 22:34 Lactate 2.1 mmol/L (0.4-2.0) H* 10/20/22 01:55 Calcium 9.5 mg/dl (8.6-10.3) 10/19/22 22:34 Magnesium 1.8 mg/dl (1.7-2.4) 10/19/22 22:34 Total Bilirubin 0.5 mg/dl (0.2-1.0) 10/19/22 22:34 AST 13 U/L (13-39) 10/19/22 22:34 ALT 3 U/L (7-52) L 10/19/22 22:34 Alkaline Phosphatase 63 U/L (34-104) 10/19/22 22:34 Troponin I High Sens 2.5 pg/ml (0-20) 10/19/22 22:34 Total Protein 7.2 gm/dl (6.0-8.3) 10/19/22 22:34 Albumin 4.7 gm/dl (3.4-5.0) 10/19/22 22:34 Globulin 2.5 gm/dl (2.5-4.0) 10/19/22 22:34 Albumin/Globulin Ratio 1.9 (0.9-2) 10/19/22 22:34 Urine Color Yellow 10/20/22 01:58 Urine Appearance Clear (Clear) 10/20/22 01:58 Urine pH 6.0 (4.5-7.5) 10/20/22 01:58 Ur Specific [place] 1.013 (1.000-1.030) 10/20/22 01:58 Urine Protein Negative (Negative) 10/20/22 01:58 Urine Glucose (UA) Negative (Negative) 10/20/22 01:58 Urine Ketones Trace (Negative) H 10/20/22 01:58 Urine Blood Negative (Negative) 10/20/22 01:58 Urine Nitrite Negative (Negative) 10/20/22 01:58 Urine Bilirubin Negative (Negative) 10/20/22 01:58 Urine Urobilinogen Negative (Negative) 10/20/22 01:58 Ur Leukocyte Esterase Negative (Negative) 10/20/22 01:58 Urine Opiates Screen Neg (Neg) 10/20/22 01:58 Ur Methadone, Qual Neg (Neg) 10/20/22 01:58 Urine Barbiturates Neg (Neg) 10/20/22 01:58 Ur Phencyclidine (PCP) Neg (Neg) 10/20/22 01:58 U Amphetamin/Meth Scrn Neg (Neg) 10/20/22 01:58 MDMA (Ecstasy) Screen Neg (Neg) 10/20/22 01:58 U Benzodiazepines Scrn Neg (Neg) 10/20/22 01:58 Ur Cocaine Metabolite Neg (Neg) 10/20/22 01:58 U Marijuana (THC) Screen Neg (Neg) 10/20/22 01:58 Ethyl Alcohol mg/dL < 10.0 mg/dl (<10.0) 10/19/22 23:56 Adenovirus (PCR) Not Detected (NotDetected) 10/19/22 22:34 B. pertussis DNA (PCR) Not Detected (NotDetected) 10/19/22 22:34 B.parapertussis DNA PCR Not Detected (NotDetected) 10/19/22 22:34 C. pneumoniae DNA (PCR) Not Detected (NotDetected) 10/19/22 22:34 Coronavirus OC43 (PCR) Not Detected (NotDetected) 10/19/22 22:34 Coronavirus HKU1 (PCR) Not Detected (NotDetected) 10/19/22 22:34 Coronavirus 229E (PCR) Not Detected (NotDetected) 10/19/22 22:34 SARS-CoV-2 (PCR) Not Detected (NotDetected) 10/19/22 22:34 Coronavirus NL63 (PCR) Not Detected (NotDetected) 10/19/22 22:34 Human Metapneumovir PCR Not Detected (NotDetected) 10/19/22 22:34 Influenza Type A (PCR) Not Detected (NotDetected) 10/19/22 22:34 Influenza Type B (PCR) Not Detected (NotDetected) 10/19/22 22:34 M. pneumoniae (PCR) Not Detected (NotDetected) 10/19/22 22:34 Parainfluenza 1 (PCR) Not Detected (NotDetected) 10/19/22 22:34 Parainfluenza 2 (PCR) Not Detected (NotDetected) 10/19/22 22:34 Parainfluenza 3 (PCR) Not Detected (NotDetected) 10/19/22 22:34 Parainfluenza 4 (PCR) Not Detected (NotDetected) 10/19/22 22:34 RSV (PCR) Not Detected (NotDetected) 10/19/22 22:34 Entero/Rhino (PCR) Not Detected (NotDetected) 10/19/22 22:34 ECG Additional Comments: sinus bradycardia at 57bpm, no acute ischemic changes Code Status & VTE Plan VTE Prophylaxis Plan VTE Prophylaxis will be ordered: Yes PG Care Time/CCT Total # of Minutes Spent Total Time Spent with Patient: Total time spent is greater than 50% in coordination of care (as documented) at patient's floor/unit and/or counseling patient: Coding Level of Care Code 89886 INT INP/OBS CARE 2/55MIN Diagnoses Lyme disease A69.20 Syncope R55 Dyslipidemia E78.5 Hypertension I10
[2022-10-20] MEDS ORDERED: POLYETHYLENE (MIRALAX) 17 GM PACK PO PRN (02:08)
[2022-10-20] MEDS ORDERED: ONDANSETRON INJ 2 MG/ML 2 ML VIAL IV PRN (02:08)
[2022-10-20] MEDS ORDERED: IPRATROPIUM BROMIDE/ALBUTEROL respimat INH INH PRN (02:08)
[2022-10-20] MEDS ORDERED: ACETAMINOPHEN 325 MG TAB PO PRN (02:08)
[2022-10-20] MEDS ORDERED: BUTALBITAL/ACETAMIN/CAFFEINE TAB PO PRN (02:08)
[2022-10-20 02:10] LABS: Appearance Urine Clear (Clear); Bilirubin Urine Negative (Negative); Blood Urine Negative (Negative); Color Urine Yellow; Glucose Urine UA Negative (Negative); Ketones Urine Trace (Negative); Leukocyte Esterase Urine Negative (Negative); Nitrite Urine Negative (Negative); Protein Urine Negative (Negative); Specific Gravity Urine 1.013 (1.000-1.030); Urobilinogen Urine Negative (Negative)
[2022-10-20] MEDS ORDERED: ALBUTEROL HFA 8 GM INHALER INH PRN (02:33)
[2022-10-20] MEDS ORDERED: IPRATROPIUM BROMIDE HFA INHALER INH PRN (02:33)
[2022-10-20 02:40] LABS: Amphetamines+Metham, Urine Neg (Neg); Barbiturates, Urine Neg (Neg); Benzodiazepine, Urine Neg (Neg); Cocaine, Urine Neg (Neg); MDMA (Ecstacy), Urine Neg (Neg); Methadone, Urine Neg (Neg); Opiate, Urine Neg (Neg); Phencyclidine, Urine Neg (Neg)
[2022-10-20] MEDS: cefTRIAXone SODIUM 2,000 MG in DEXTROSE 5% 50 ML IV SCH (04:44)
[2022-10-20] MEDS: HEPARIN SOD 5,000 UNIT/0.5 ML VIAL SQ SCH ×3 (06:13→20:48)
[2022-10-20] MEDS ORDERED: NON-FORMULARY MEDICATION (Fluticasone-Umeclidin-Vilanter [Trelegy Ellipta] 200-62.5-25 mcg INH SCH (09:00)
[2022-10-20] MEDS: FLUoxetine HCL 20 MG CAP PO SCH (09:17)
[2022-10-20] MEDS: CARBIDOPA/LEVODOPA 25/100MG TAB PO SCH ×2 (09:17→20:48)
[2022-10-20] MEDS: UMECLIDINIUM/VILANTEROL 62.5/25MCG 7 PUFFS/INHALER INH SCH (09:18)
[2022-10-20] MEDS: FLUTICASONE FUROATE 200MCG 14 PUFFS/INHALER INH SCH (09:19)
[2022-10-20] MEDS ORDERED: ALBUT/IPRATROP 3MG/0.5MG NEB 3 ML VIAL INH PRN (12:34)
[2022-10-20] MEDS: DOXYCYCLINE HYCLATE 100 MG CAP PO SCH ×2 (13:30→20:48)
--- NOTE | 2022-10-20 16:02 | Hospitalist Progress Note ---
Date of Service October 20, 2022 Assessment & Plan (1) Lyme disease: Plan: Currently on Rocephin. Will discharge on oral doxycycline (2) Syncope: Plan: Probably due to bradycardia and hypotension. Metoprolol has been discontinued. IV fluids for now. Continue telemetry (3) Dyslipidemia: Plan: Stable. Continue Simvastatin (4) Hypertension: Plan: Metoprolol has been discontinued. We will follow. We will add a different BP med if necessaryl Plan Observation with telemetry. Hopefully home tomorrow, October 21 Admission and Anticipated Discharge Date Admission Date: October 20, 2022 Subjective Alert and oriented. No distress. Toprol-XL needs to be discontinued at this time due to bradycardia and recurrent syncopal episodes. Thyroid profile is unremarkable. IV fluids have been started. He is currently on intravenous Rocephin for Lyme positivity including IgM positivity. He will be discharged on oral doxycycline. Observation status for now. Hopefully home tomorrowOctober 21, off metoprolol Review of Systems Review of Systems: Constitutional-no fever or chills ENT-no blurred vision, no double vision, no epistaxis, no sore throat Respiratory-no cough, no wheezing, no shortness of breath Cardiac-no palpitations, no chest pain, no syncope GI-no nausea, vomiting, diarrhea, melena, hematochezia -no urinary retention, no urinary incontinence, no dysuria, no hematuria Musculoskeletal-no joint pain, no muscle tenderness Skin-no bruising, no rashes, no pruritus Neuro-no isolated weakness, no paresthesia, no weakness Psych-no depression, no anxiety Physical Exam Physical Exam: General-alert and oriented x3, no fevers, no chills HEENT-head atraumatic and normocephalic, pupils equal and reactive to light, extraocular muscles intact Neck-no lymphadenopathy or thyromegaly, trachea midline Chest-clear to auscultation percussion. No rales wheezing or rhonchi Cardiac-slightly bradycardic regular rate and rhythm, normal S1 and S2 Abdomen-normal bowel sounds, nontender, no hepatosplenomegaly Extremities-no cyanosis, clubbing, or edema Neuro-cranial nerves II through XII intact, motor and sensory function within normal limits, strength symmetrical , no focal deficits Psych-normal affect, normal mood Results & Data Results & Data Vital Signs (Past 12 Hours) Vital Signs Temp Pulse Pulse Resp BP Pulse Ox O2 Del Method 10/20/22 10:56 36.8 C 76 18 94/60 L 97 Room Air 10/20/22 07:10 53 L 10/20/22 06:23 52 L 16 97/64 L 96 Room Air 10/20/22 06:01 48 L 16 97/64 L 94 Room Air Laboratory Results 10/19/22 22:34 10/19/22 22:34 PG Care Time/CCT Total # of Minutes Spent Total Time Spent with Patient: Total time spent is greater than 50% in coordination of care (as documented) at patient's floor/unit and/or counseling patient: Coding Level of Care Code 48009 SUB INP/OBS CARE 3/50MIN Diagnoses Lyme disease A69.20 Syncope R55 Dyslipidemia E78.5 Hypertension I10
[2022-10-20] MEDS ORDERED: LURASIDONE HCL 40 MG TAB PO SCH (16:30)
--- NOTE | 2022-10-20 17:10 | Electrocardiogram Report ---
Test Reason : Blood Pressure : / mmHG Vent. Rate : 057 BPM Atrial Rate : 057 BPM P-R Int : 166 ms QRS Dur : 084 ms QT Int : 446 ms P-R-T Axes : 039 -21 004 degrees QTc Int : 434 ms Sinus bradycardia Minimal voltage criteria for LVH, may be normal variant Borderline ECG When compared with ECG of 10-OCT-2022 23:08, No significant change was found Confirmed by Rachid Latham ([id number]) on 10/20/2022 5:09:43 PM Referred By: REFERRED SELF Confirmed By:Jax Latham
[2022-10-20] MEDS ORDERED: MONTELUKAST SODIUM 10 MG TABLET PO SCH (21:00)
[2022-10-20] MEDS ORDERED: PANTOprazole 40 MG TAB PO SCH (21:00)
[2022-10-20] MEDS ORDERED: METOPROLOL SUCC 50MG EXT REL TAB PO SCH (21:00)
[2022-10-20] MEDS ORDERED: SIMVASTATIN 10 MG TAB PO SCH (21:00)
[2022-10-21] MEDS: cefTRIAXone SODIUM 2,000 MG in DEXTROSE 5% 50 ML IV SCH (04:24)
[2022-10-21] MEDS: HEPARIN SOD 5,000 UNIT/0.5 ML VIAL SQ SCH ×2 (05:41→12:56)
[2022-10-21] MEDS: FLUTICASONE FUROATE 200MCG 14 PUFFS/INHALER INH SCH (08:36)
[2022-10-21] MEDS: FLUoxetine HCL 20 MG CAP PO SCH (08:36)
[2022-10-21] MEDS: CARBIDOPA/LEVODOPA 25/100MG TAB PO SCH (08:36)
[2022-10-21] MEDS: DOXYCYCLINE HYCLATE 100 MG CAP PO SCH (08:36)
[2022-10-21] MEDS: UMECLIDINIUM/VILANTEROL 62.5/25MCG 7 PUFFS/INHALER INH SCH (08:37)
[2022-10-21 09:29] LABS: Basophils # (auto) 0.01 K/uL (0.00-0.20); Basophils % (auto) 0.1 %; Hematocrit (blood only) 40.1 % (42.0-52.0); Hemoglobin 13.2 g/dl (14.0-18.0); Immature Granulocytes # (auto) 0.04 K/uL (0.01-0.20); Immature Granulocytes % (auto) 0.6 %; Lymphocytes % (auto) 33.7 %; Mean Corpuscular Hemoglobin 29.1 pg (25.0-34.0); Mean Corpuscular Hgb Conc 32.9 g/dL (32.0-36.0); Mean Corpuscular Volume 88.3 fL (80.0-100.0); Mean Platelet Volume 9.5 fL (9.4-12.4); Monocytes # (auto) 0.36 K/uL (0.11-0.59); Monocytes % (auto) 5.1 %; Neutrophils # (auto) 4.31 K/uL (1.40-6.50); Neutrophils % (auto) 60.5 %; Platelet Count 225 K/uL (130-400); RDW Coefficient of Variation 13.4 % (11.5-14.5); RDW Standard Deviation 43.4 fL (36.4-46.3); Red Blood Count 4.54 M/uL (4.70-6.10); White Blood Count 7.12 K/ul (4.8-10.8)
[2022-10-21 09:46] LABS: BUN Creatinine Ratio 11.6 (10-20); Calcium 8.6 mg/dl (8.6-10.3); Creatinine Clr Calc Pharmacy 62.2 ml/min; Est GFR (African American) 62.7 ml/min; Est GFR (Non-African American) 54.1 ml/min; Potassium 4.1 mmol/L (3.5-5.1)
--- NOTE | 2022-10-21 10:04 | Discharge Summary ---
Date of Service October 21, 2022 Admission HPI Per Admitting Provider Jarvis Borrero is a 52yoMale male with history of hypertension, hyperlipidemia, COPD presenting with episode of syncope. Patient reports that he has frequent episodes where he has tensing of his muscles of his neck and his face and "does not have control over his body". These episodes have been occurring over the last 3 to 4 months. They last approximately 1 hour and usually and with him passing out. He does report that he can feel these episodes coming on because he becomes cold and breaks into a sweat. He denies losing consciousness or having incontinence. No chest pain or palpitations preceding or following these episodes. This evening patient came to the ER with/complaints As well as left- sided facial pain and nausea and vomiting ongoing for the last 10 days. While being evaluated at triage, patient had an episode of unresponsiveness that lasted approximately 30 to 45 seconds. Per NELLY Caicedo, patient did not respond to voice or noxious stimuli (deep sternal rub). patient maintained a pulse and protected his airway throughout the episode. No confusion or postictal state following his return to consciousness. Principal Diagnosis Syncope, sinus bradycardia, Lyme disease, acute on chronic kidney disease stage III Discharge Exam General-alert and oriented x3, no fevers, no chills HEENT-head atraumatic and normocephalic, pupils equal and reactive to light, extraocular muscles intact Neck-no lymphadenopathy or thyromegaly, trachea midline Chest-clear to auscultation percussion. No rales wheezing or rhonchi Cardiac-slightly bradycardic regular rate and rhythm, normal S1 and S2 Abdomen-normal bowel sounds, nontender, no hepatosplenomegaly Extremities-no cyanosis, clubbing, or edema Neuro-cranial nerves II through XII intact, motor and sensory function within normal limits, strength symmetrical , no focal deficits Psych-normal affect, normal mood Discharge Data Allergies Allergy/AdvReac Type Severity Reaction Status Date / Time peanut Allergy Intermediate Rash Verified 10/19/22 22:57 walnut Allergy Intermediate Rash Verified 10/19/22 22:57 lamotrigine Allergy Mild Rash Verified 10/19/22 22:57 pineapple Allergy Unknown Unknown Verified 10/19/22 22:57 tramadol AdvReac Mild NAUSEA/VOMI Verified 10/19/22 22:57 TING varenicline AdvReac Unknown Unknown Verified 10/19/22 22:57 Consultations 10/20/22 00:50 ED Decision to Admit Stat Hospital Course (1) Lyme disease: Treated while hospitalized with Rocephin. Will discharge on oral doxycycline (2) Syncope: Probably due to bradycardia and hypotension. Metoprolol has been discontinued. He received IV fluids while hospitalized. Improved. (3) Dyslipidemia: Stable. Continue Simvastatin (4) Hypertension: Metoprolol has been discontinued. Heart rate has improved. Blood pressure remained stable Plan Home today, October 21 Total Time Total Time Spent Total Time Spent (In Minutes): 45-minute Discharge Plan Discharge Items Patient Disposition: Home - Self-Care Reason For Visit: SYNCOPE Discharge Diagnosis: Syncope due to orthostasis and bradycardia, acute Lyme disease Activity: Resume your previous activity Non-emergency contact: Primary Care Provider Call non-emergency contact if: you have any medication questions and your symptoms worsen Follow-up/Referrals: Natalie Marrufo DO [Primary Care Provider] - Diet: Regular and Heart Healthy Addtl Attending Provider Instructions: Metoprolol has been discontinued. Take doxycycline for 4 weeks Pending Studies at Discharge: No Stand-Alone Forms: My [facility] [employer], Smoking Cessation Medications and DC Order Prescriptions: New doxycycline hyclate 100 mg capsule 100 mg PO BID 28 Days Qty: 56 0RF Continued ipratropium-albuterol 0.5 mg-3 mg(2.5 mg base)/3 mL solution for nebulization 3 ml inhalation QID PRN (Reason: shortness of breath or wheezing) Qty: 120 5RF Combivent Respimat 20-100 mcg/actuation mist 1 puff INHALATION Q6H PRN (Reason: Shortness Of Breath) Qty: 4 3RF Fasenra 30 mg/mL syringe See Rx Instructions .ROUTE .COMPLEX Qty: 1 6RF Dose Instruction: INJECT 30 MG (1 SYRINGE) UNDER THE SKIN AT WEEK 8, THEN EVERY 8 WEEKS THEREAFTER Rx Instructions: INJECT 30 MG EVERY 8 WEEKS APPROVED GOOD 11/19/21-11/19/22 ozoimweyet-tisieomxzsbvj-kyvs 50-325-40 mg tablet 1 - 2 tab PO .COMPLEX PRN (Reason: headache) Qty: 12 1RF Rx Instructions: 1 - 2 tabs orally DAILY PRN; lurasidone [Latuda] 40 mg tablet 60 mg PO QPM Rx Instructions: must administer with food (at least 350 calories) carbidopa-levodopa [Sinemet] 25-100 mg tablet 2 tab PO BID 90 Days Qty: 360 1RF Nurtec ODT 75 mg tablet,disintegrating 75 mg PO .COMPLEX Qty: 8 6RF Rx Instructions: 75 mg PO Take one tablet once a day as needed for migraine, max one dose per 24 hours, limit dosing to 2-3 times per week; rizatriptan [Maxalt] 10 mg tablet 10 mg PO .COMPLEX PRN (Reason: migraine headache) 30 Days Qty: 9 6RF Rx Instructions: 10mg po prn migraine, may repeat after two hours prn Emgality Pen 120 mg/mL pen injector 120 mg subcut .COMPLEX Qty: 1 6RF Rx Instructions: 120 mg SQ once every 30 days as directed; fluoxetine [Prozac] 20 mg capsule 20 mg PO QAM pantoprazole 20 mg tablet,delayed release (DR/EC) 20 mg PO QPM simvastatin 10 mg tablet 10 mg PO QPM montelukast 10 mg tablet 10 mg PO QPM Trelegy Ellipta 200-62.5-25 mcg blister with device 1 ea INHALATION QAM ondansetron 4 mg tablet,disintegrating 4 mg PO Q6H PRN (Reason: nausea and vomiting) Qty: 12 0RF Discontinued doxycycline hyclate 100 mg capsule 100 mg PO BID 14 Days Qty: 28 0RF metoprolol succinate 50 mg tablet extended release 24 hr 50 mg PO QPM Discharge Orders: Discharge Order (Routine); Ordered 10/21/22 Ordered By: Arturo Kim Admission Data Admit Date/Time: 10/20/22 01:15 Attending Provider: Arturo Kim Admit Provider: Arsalan Price Primary Care Provider: Natalie Marrufo Other Providers: Fartun Beal Coding Level of Care Code 98100 INP/OBS DISCH >30 MIN Diagnoses Lyme disease A69.20 Syncope R55 Dyslipidemia E78.5 Hypertension I10
[2022-10-21] MEDS: SODIUM CHLORIDE 0.9% 1,000 ML IV SCH (12:56)
== END 2022-10-21 15:51 | disposition home or self-care (01) ==
LOC: ED 22:06 → INTOOBSV 10-20 01:15 → SUATTDRO 10-20 01:15 → EDINP 10-20 01:15 → 2N 10-20 01:50

== ENCOUNTER 2023-08-05 09:48 | Inpatient (IN) ==
--- NOTE | 2023-08-05 10:04 | Emergency Department Note ---
Impression & Plan Acute hyponatremia ADMIT ED Provider Note HPI: History obtained from patient and significant other at the bedside. The patient is a 53-year-old gentleman with history of schizoaffective disorder, COPD, bipolar disorder, Mnire's disease, who presents the emergency department with chief complaint of a syncopal event. Patient presents with his significant other at the bedside, she states that at approximately 630 this morning she was getting out of the shower and he was assisting her when he fell backwards and hit his head against the wall. She states that he was unconscious for some short period of time but when he became alert he still did not seem back to his baseline for several more minutes. Patient states he has had similar events in the past. No seizure-like activity was noted. On arrival here to the ED the patient is hemodynamically stable, he denies any current focal complaint of pain, he states he did hit the back of his head against the wall and does have a small hematoma to the left posterior scalp. ROS: - Per HPI Differential Diagnosis: Syncope, seizure, vasovagal event, ACS, arrhythmia, critical electrolyte abnormalities to include hyponatremia, amongst other potential pathologies. *Outpatient medications and allergy history reviewed. PE: General: Alert HEENT: Normocephalic, trachea midline, small contusion/hematoma to the posterior left scalp without any open wounds or lacerations Eyes: Extraocular eye movement is intact, no scleral erythema Pulmonary: Clear to auscultation bilaterally, no wheezing Cardio: Regular rate and rhythm GI: Abdomen is soft to palpation : No suprapubic tenderness MSK: No evidence of trauma or malformation of the extremities, no edema Skin: No evidence of rash Neuro: Alert, no focal deficits Psychiatric: Cooperative INDEPENDENT INTERPRETATIONS: cardiac monitor: (As interpreted by myself): - An order was placed for continuous cardiac monitoring - Patient was noted to be in sinus rhythm with a rate of 85 EKG: (As interpreted by myself): Rate: 81 Rhythm: Normal sinus rhythm Intervals: Within normal limits ST changes: No ST elevation Time: 1005 Chest x-ray: (As interpreted by myself): No acute disease Interventions provided in ED: -IV fluid bolus Medical Decision Making: IV was established and lab work obtained, patient was placed on hop weigher. Lab work shows no leukocytosis, hemoglobin is normal, platelet count is normal, CMP shows hyponatremia that appears to be acute at 122, chloride is also reduced at 89, potassium is normal, there is no evidence of acute kidney injury, troponin is negative, EKG does not show any acute ischemic changes per my interpretation. CT imaging of the head was obtained that does not show any evidence of any acute intracranial process. Chest x-ray does not show any evidence of any mass or acute disease per my interpretation. On my reassessment the patient appears well, unclear source for his hyponatremia at this time, his event this morning did not sound consistent with seizure although given his critical electrolyte abnormality I feel he should be admitted for observation and further workup for hyponatremia. I discussed this with the patient and he is in agreement. [facility] hospitalist service was consulted for the admission, case was discussed with Chintan Fonseca PA-C, and the patient was placed in stable condition to the service of Dr. Ivey. Consultants/Discussions held with other healthcare providers: -Hospitalist, Dr. Ivey Disposition discussion held by myself with: -Patient Diagnosis: 1. Syncope and collapse, acute 2. Hyponatremia, acute 3. Hypochloridemia, acute 4. Closed head injury, acute Disposition: Admission Cody Bueno DO Emergency Medicine Past Med/Surg History Problem List (Updated 08/05/23 @ 14:06 by Cody Bueno DO) Acute hyponatremia (Acute) History of seizure Syncope and collapse Acute hyponatremia Homicidal ideations (Acute) Noncompliance (Acute) Schizoaffective disorder (Acute) History of tobacco abuse COPD (chronic obstructive pulmonary disease) (Chronic) Syncope (Acute) Seizure-like activity Severe persistent asthma Anxiety Bipolar disorder Meniere's disease Migraine with visual aura Sleep disorder Tremor Schizophrenia Dyspnea on exertion Atypical chest pain Pulmonary nodule Mild neurocognitive disorder Drug-induced parkinsonism Prostatitis Medical History (Updated 08/05/23 @ 14:06 by Cody Bueno DO) Major depressive disorder Hypertension Essential hypertension Dyslipidemia Surgical History H/O atrial septal defect repair S/P tonsillectomy Family History Father Aortic stenosis Grandfather (Maternal) Prostate cancer Grandfather (Paternal) Prostate cancer Sister Thyroid cancer Social History Smoking Status: Current every day smoker Tobacco Type: Cigarettes Age Started Using Tobacco: 18; Age Quit Using Tobacco: 44; packs per day: 1; Preferred Language: Wallisian Communication Ability: Effective Card Brusher Required: No Beliefs That Will Affect Care: None Feels Safe at Home: Yes Gender Identity: Male Assistive Devices: None Allergies Allergies Allergy/AdvReac Type Severity Reaction Status Date / Time peanut Allergy Intermediate Rash Verified 06/17/23 15:55 walnut Allergy Intermediate Rash Verified 06/17/23 15:55 lamotrigine Allergy Mild Rash Verified 06/17/23 15:55 pineapple Allergy Unknown Unknown Verified 06/17/23 15:55 tramadol AdvReac Mild NAUSEA/VOMI Verified 06/17/23 15:55 TING varenicline AdvReac Unknown Unknown Verified 06/17/23 15:55 Home Meds Home Medications Medication Instructions Recorded Confirmed simvastatin 10 mg tablet 10 mg PO QPM 07/23/19 08/05/23 oxcarbazepine 300 mg tablet 300 mg PO BID 08/05/23 08/05/23 sertraline 50 mg tablet 50 mg PO DAILY 08/05/23 08/05/23 Results & Data (ED) Vital Signs Vital Signs - 24 hr 08/05/23 09:51 08/05/23 09:57 08/05/23 10:09 Temperature 36.4 C L Temperature Source Temporal Artery Scan Pulse Rate 85 Pulse Rate [Apical] 84 Pulse Rhythm [Apical] Pulse Strength [Apical] Respiratory Rate 18 18 Respiratory Effort / Characteristics Non-Labored Spontaneous Non-Labored Respiratory Depth Normal Normal Respiratory Pattern Regular Blood Pressure 143/87 H Blood Pressure [Right Arm] 147/86 H Blood Pressure Mean 105 Blood Pressure Mean [Right Arm] 106 Blood Pressure Position [Right Arm] Pulse Oximetry 100 98 98 Oxygen Delivery Method Room Air Room Air Room Air Oxygen Flow Rate Sepsis Recent Fever Within 48 Hours No Sepsis New/Unexplained Change in Mental Status No Sepsis Action Taken by Nursing No Action Required 08/05/23 11:00 08/05/23 11:47 08/05/23 12:09 Temperature Temperature Source Pulse Rate 80 Pulse Rate [Apical] 81 Pulse Rhythm [Apical] Regular Pulse Strength [Apical] Normal Respiratory Rate 20 Respiratory Effort / Characteristics Non-Labored Spontaneous Respiratory Depth Normal Respiratory Pattern Regular Blood Pressure Blood Pressure [Right Arm] 160/96 H Blood Pressure Mean Blood Pressure Mean [Right Arm] 117 Blood Pressure Position [Right Arm] Sitting Pulse Oximetry 98 100 Oxygen Delivery Method Room Air Room Air Oxygen Flow Rate 0 Sepsis Recent Fever Within 48 Hours Sepsis New/Unexplained Change in Mental Status Sepsis Action Taken by Nursing Laboratory Data 08/05/23 10:10 08/05/23 10:10 Lab Results 08/05/23 Range/Units 10:10 WBC 9.91 (4.8-10.8) K/ul RBC 5.10 (4.70-6.10) M/uL Hgb 14.7 (14.0-18.0) g/dl Hct 42.2 (42.0-52.0) % MCV 82.7 (80.0-100.0) fL MCH 28.8 (25.0-34.0) pg MCHC 34.8 (32.0-36.0) g/dL RDW Std Deviation 42.1 (36.4-46.3) fL RDW Coeff of Ian 14.0 (11.5-14.5) % Plt Count 248 (130-400) K/uL MPV 9.5 (9.4-12.4) fL Immature Gran % (Auto) 1.3 % Neut % (Auto) 76.0 % Lymph % (Auto) 15.1 % [place] % (Auto) 5.5 % Eos % (Auto) 1.7 % Baso % (Auto) 0.4 % Neut # (Auto) 7.52 H (1.40-6.50) K/uL Lymph # (Auto) 1.50 (1.20-3.40) K/uL [place] # (Auto) 0.55 (0.11-0.59) K/uL Eos # (Auto) 0.17 (0.00-0.50) K/uL Baso # (Auto) 0.04 (0.00-0.20) K/uL Immature Gran # (Auto) 0.13 (0.01-0.20) K/uL PT 10.0 (9.0-12.0) Seconds INR 0.9 (0.9-1.1) Sodium 122 L (136-145) mmol/L Potassium 4.2 (3.5-5.1) mmol/L Chloride 89 L (98-107) mmol/L Carbon Dioxide 24 (21-32) mmol/L Anion Gap 9 (3-11) BUN 16 (6-23) mg/dl Creatinine 1.21 (0.6-1.4) mg/dl Est Cr Clr Drug Dosing 79.8 ml/min Est GFR ( Amer) 78.7 ml/min Est GFR (Non-Af Amer) 67.9 ml/min BUN/Creatinine Ratio 13.2 (10-20) Glucose 139 H (70-99(Fasting)) mg/dl Osmolality 261 L (280-300) mOsm/kg Calcium 9.2 (8.6-10.3) mg/dl Total Bilirubin 0.6 (0.2-1.0) mg/dl AST 31 (13-39) U/L ALT 38 (7-52) U/L Alkaline Phosphatase 109 H (34-104) U/L Troponin I High Sens 2.6 (0-20) pg/ml Total Protein 7.4 (6.0-8.3) gm/dl Albumin 4.9 (3.4-5.0) gm/dl Globulin 2.5 (2.5-4.0) gm/dl Albumin/Globulin Ratio 2.0 (0.9-2) Lipase 21 (11-82) U/L Administered Medications Discontinued Medications Sodium Chloride (Nss) 1,000 mls @ 999 mls/hr IV .Q1H1M STA Stop: 08/05/23 10:57 Last Infusion: 08/05/23 11:45 Dose: Infused Documented By: Admin: 08/05/23 10:10 Dose: 999 mls/hr Documented By: RENEE Imaging Data Radiologist's Impression: Chest X-Ray 08/05/23 09:57 XR chest 1V portable CLINICAL HISTORY: Chest pain, nonspecific TECHNIQUE: Single frontal radiograph of the chest was obtained. Comparison: Comparison is made to chest radiograph 10/26/2022 FINDINGS: No lines and tubes are seen. The cardiomediastinal silhouette is normal. The lungs are clear. No evidence of pleural effusion or pneumothorax. IMPRESSION: No acute chest disease. ACT 112: Negative or not required by law. Electronically signed by: Alexx Clifton M.D. 08/05/2023 10:[address] 08/05/23 10:02 CT head/brain wo con CLINICAL HISTORY: syncope Technique: Contiguous axial CT images of the head were acquired from the base of the skull to the vertex without intravenous contrast administration. Images were viewed in brain, subdural and bone windows. Automated dose lowering techniques and/or adjustment according to patient size were utilized for this exam. Comparison: Comparison is made to CT head 11/06/2022 Findings: Areas of decreased attenuation are present in the periventricular and subcortical white matter bilaterally consistent with small vessel ischemic disease. Generalized cerebral atrophy with commensurate enlargement of the ventricles, sulci, and cisterns is also present. There is no acute intracranial hemorrhage or evidence of acute territorial infarction. No shift of the midline structures, mass effect, or extra-axial abnormalities are shown. Atherosclerotic calcifications are present in the intracranial segments of the internal carotid arteries. Imaged portions of the paranasal sinuses and mastoid air cells are clear. The orbits appear normal. There are no acute fractures of the calvaria or scalp swelling. Impression: No acute intracranial hemorrhage, no evidence of acute territorial infarction or other acute intracranial disease process. ACT 112: Negative or not required by law. Electronically signed by: Alexx Clifton M.D. 08/05/2023 10:39 AM Discharge Plan Visit Data Chief Complaint: Syncope Stated Complaint: syncope this morning, shoulder/head injury ED Provider: Cody Bueno Discharge Problem: Acute hyponatremia Forms Stand Alone Forms: My [facility] [employer] Prescriptions Prescriptions: No Action simvastatin 10 mg tablet 10 mg PO QPM oxcarbazepine 300 mg tablet 300 mg PO BID sertraline 50 mg tablet 50 mg PO DAILY Referrals Referrals: Natalie Marrufo DO [Primary Care Provider] -
[2023-08-05] MEDS: SODIUM CHLORIDE 0.9% 1,000 ML IV STA (10:10)
--- NOTE | 2023-08-05 10:40 | CT Scan Report ---
CT head/brain wo con CLINICAL HISTORY: syncope Technique: Contiguous axial CT images of the head were acquired from the base of the skull to the prasanna karen without intravenous contrast administration. Images were viewed in brain, subdural and bone [facility]. Automated dose lowering techniques and/or adjustment according to patient size were utilized for this exam. Comparison: Comparison is made to CT head 11/06/2022 Findings: Areas of decreased attenuation are present in the periventricular and subcortical white matter bilate rally consistent with small vessel ischemic disease. Generalized cerebral atrophy with commensurate e nlargement of the ventricles, sulci, and cisterns is also present. There is no acute intracranial hem orrhage or evidence of acute territorial infarction. No shift of the midline structures, mass effect, or extra-axial abnormalities are shown. Atherosclerotic calcifications are present in the intracran ial segments of the internal carotid arteries. Imaged portions of the paranasal sinuses and mastoid air cells are clear. The orbits appear normal. There are no acute fractures of the calvaria or scalp swelling. Impression: No acute intracranial hemorrhage, no evidence of acute territorial infarction or other acute intracra nial disease process. ACT 112: Negative or not required by law. Electronically signed by: Alexx Clifton M.D. 08/05/2023 10:39 AM
--- NOTE | 2023-08-05 10:50 | XRay Report ---
XR chest 1V portable CLINICAL HISTORY: Chest pain, nonspecific TECHNIQUE: Single frontal radiograph of the chest was obtained. Comparison: Comparison is made to chest radiograph 10/26/2022 FINDINGS: No lines and tubes are seen. The cardiomediastinal silhouette is normal. The lungs are clear. No evid ence of pleural effusion or pneumothorax. IMPRESSION: No acute chest disease. ACT 112: Negative or not required by law. Electronically signed by: Alexx Clifton M.D. 08/05/2023 10:49 AM
[2023-08-05 10:51] LABS: Troponin I High Sensitivity 2.6 pg/ml (0-20)
[2023-08-05 11:05] LABS: Basophils # (auto) 0.04 K/uL (0.00-0.20); Basophils % (auto) 0.4 %; Eosinophils # (auto) 0.17 K/uL (0.00-0.50); Eosinophils % (auto) 1.7 %; Hematocrit (blood only) 42.2 % (42.0-52.0); Hemoglobin 14.7 g/dl (14.0-18.0); Immature Granulocytes # (auto) 0.13 K/uL (0.01-0.20); Immature Granulocytes % (auto) 1.3 %; Lymphocytes % (auto) 15.1 %; Mean Corpuscular Hemoglobin 28.8 pg (25.0-34.0); Mean Corpuscular Hgb Conc 34.8 g/dL (32.0-36.0); Mean Corpuscular Volume 82.7 fL (80.0-100.0); Mean Platelet Volume 9.5 fL (9.4-12.4); Monocytes # (auto) 0.55 K/uL (0.11-0.59); Monocytes % (auto) 5.5 %; Neutrophils # (auto) 7.52 K/uL (1.40-6.50); Platelet Count 248 K/uL (130-400); RDW Standard Deviation 42.1 fL (36.4-46.3); White Blood Count 9.91 K/ul (4.8-10.8)
[2023-08-05 11:22] LABS: INR 0.9 (0.9-1.1)
[2023-08-05 11:33] LABS: Albumin Level 4.9 gm/dl (3.4-5.0); Bilirubin,Total 0.6 mg/dl (0.2-1.0); Calcium 9.2 mg/dl (8.6-10.3); Potassium 4.2 mmol/L (3.5-5.1)
[2023-08-05 11:40] LABS: BUN Creatinine Ratio 13.2 (10-20); Creatinine Clr Calc Pharmacy 79.8 ml/min; Est GFR (African American) 78.7 ml/min; Est GFR (Non-African American) 67.9 ml/min; Globulin 2.5 gm/dl (2.5-4.0); Total Protein 7.4 gm/dl (6.0-8.3)
--- NOTE | 2023-08-05 11:58 | History & Physical Report ---
Date of Service August 05, 2023 Assessment & Plan (1) Syncope and collapse: Plan: Syncope and collapse while standing in the bathroom the morning of 08/04 around 06:30 AM Witnessed by , who reports head strike and full LOC x 5 minutes Mild convulsions shortly after syncope, but otherwise denies eye rolling, tongue biting, jerking motinos, or loss of urinary continence No stroke-like symptoms Head CT revealed no acute findings Echocardiogram ordered, pending Orthostatic vital signs ordered, pending Suspect convulsive syncope (v. seizure) secondary to acute drop in sodium levels over the past week (#2) Continuous telemetry monitoring A.m. CBC, BMP, mag (2) Acute hyponatremia: Plan: Sodium 122 on arrival This is an acute drop in sodium from 137 (measured 1 week prior) --> 122 Started oxcarbazepine/sertraline on Sunday 07/30; likely medication-induced No history of SIADH Urine Osm, Serum Osm, and Serum sodium ordered, pending 1200 mL fluid restriction for now Seizure precautions Hold oxcarbazepine/Zoloft Trend BMP q4h x 4 (3) History of seizure: Plan: Hx of seizures 6 to 7 years ago, according to involving eye rolling and full convulsions , who witnessed the event, denies seizure-like activity today other than mild convulsions just after fainting Prolactin, lactate ordered, pending MRI with/without ordered, pending EEG ordered, pending Hold oxcarbazepine (as above) Start on Depakote 500 mg p.o. twice daily (approx. 10-15mg/kg/day); patient reports he has done well on this in the past Ativan 2mg IV q15m x 3 max doses as needed for active seizure (4) Schizoaffective disorder: Plan: Psychiatry consulted as patient has failed multiple outpatient regimens Plan Disposition: Admit to PCU telemetry Full code Regular diet (1200 mL fluid restriction) VTE PPx: SCDs; will hold chemical DVT PPX for 24 hours in the setting of acute head trauma History of Present Illness Chief Complaint: Syncope/collapse Primary Care Provider: DO Jarvis Holman is a 53yo male with PMH of Mnire's disease, anxiety, bipolar disorder, migraines, schizoaffective disorder, COPD, tobacco abuse, and homicidal ideations. Presented for syncopal event on 08/04. He was assisting his out of the shower around 0630 when he abruptly syncopized and fell forward onto her. Full LOC. Patient struck his head and posterior right shoulder. Patient's witnessed the event, and reports he did have some convulsions shortly after fainting, but denies any other seizure-like activity such as tongue biting, rolling eyes, or loss of urinary continence. reports that he did have a history of a seizure 6-7 years ago, that involved convulsions and eye rolling. Patient was unconscious for approximately 5 minutes, per . When he get regained consciousness, he was dazed and confused, but reports he is back to his baseline now. He denies dizziness or lightheadedness prior to the fall. However he did feel nauseous prior to falling, and reports a change in his vision (saw a "colored ring" upon weight this morning). Patient recently started taking Trileptal (oxcarbazepine 300 mg twice daily) as well as Zoloft on Tuesday. Prior to this he had been on Latuda for 2 years. He reports that he took all of his regular morning medications today. Patient [facility] at [facility] the past 5 days, but was discharged yesterday. He had previously stopped Latuda without mentioning to his , and is only recently started on oxcarbazepine. He has had difficulty with his psych medications for schizoaffective disorder in the past. 2 episodes of prior syncope, with the last being in March 2023 (he did not come into the hospital at that time and is unsure what caused him to syncopized); as well as in October 2022 when he had Lyme disease and required hospitalization. He denies history of stroke or strokelike symptoms prior to syncope such as slurred speech, facial droop, or unilateral deficits. Patient is a current tobacco cigarette smoker; less than 1 PPD. No recent alcohol use. He has tried Lamictal in the past, but reports this leads to development of a rash. He reports he has done well on Depakote in the past. Patient is hypertensive at 160/96 at time of admission; SpO2 100% on RA; vitals otherwise stable. ED course: NSS 1000 mL IV ROS: Patient endorses syncope, mild HOWARD, changes in vision, and nausea prior to syncope. Patient denies fever, chills, night-sweats, new body aches, dizziness/lightheadedness prior to syncope, blurry vision, double vision, loss of vision, photophobia, changes in taste/smell/hearing, difficulty swallowing, chest pain, SOB, cough, pleuritic CP, chest palpitations, abdominal pain, vomiting, diarrhea, changes in urinary/bowel habits, burning with urination, blood in the urine/stool, dysuria, or numbness/tingling/weakness in the arms or legs. Allergies Allergy/AdvReac Type Severity Reaction Status Date / Time peanut Allergy Intermediate Rash Verified 06/17/23 15:55 walnut Allergy Intermediate Rash Verified 06/17/23 15:55 lamotrigine Allergy Mild Rash Verified 06/17/23 15:55 pineapple Allergy Unknown Unknown Verified 06/17/23 15:55 tramadol AdvReac Mild NAUSEA/VOMI Verified 06/17/23 15:55 TING varenicline AdvReac Unknown Unknown Verified 06/17/23 15:55 Home Medications Medication Instructions Recorded Confirmed Type simvastatin 10 mg tablet 10 mg PO QPM 07/23/19 08/05/23 History oxcarbazepine 300 mg tablet 300 mg PO BID 08/05/23 08/05/23 History sertraline 50 mg tablet 50 mg PO DAILY 08/05/23 08/05/23 History Past Med/Surg History Problem List (Updated 08/05/23 @ 14:06 by Cody Bueno DO) Acute hyponatremia (Acute) History of seizure Syncope and collapse Acute hyponatremia Homicidal ideations (Acute) Noncompliance (Acute) Schizoaffective disorder (Acute) History of tobacco abuse COPD (chronic obstructive pulmonary disease) (Chronic) Syncope (Acute) Seizure-like activity Severe persistent asthma Anxiety Bipolar disorder Meniere's disease Migraine with visual aura Sleep disorder Tremor Schizophrenia Dyspnea on exertion Atypical chest pain Pulmonary nodule Mild neurocognitive disorder Drug-induced parkinsonism Prostatitis Medical History (Updated 08/05/23 @ 14:06 by Cody Bueno DO) Major depressive disorder Hypertension Essential hypertension Dyslipidemia Surgical History H/O atrial septal defect repair S/P tonsillectomy Family History Father Aortic stenosis Grandfather (Maternal) Prostate cancer Grandfather (Paternal) Prostate cancer Sister Thyroid cancer Social History Smoking Status: Current every day smoker Tobacco Type: Cigarettes Age Started Using Tobacco: 18; Age Quit Using Tobacco: 44; packs per day: 1; Preferred Language: German Communication Ability: Effective [employer] Required: No Beliefs That Will Affect Care: None Feels Safe at Home: Yes Gender Identity: Male Assistive Devices: None Review of Systems Review of Systems: See HPI above Physical Exam Physical Exam: General: no acute distress; pleasant affect; non-toxic appearing; well- nourished; cooperative; SpO2 100% on RA HEENT: Mild bruise/tenderness on the posterior scalp; no scleral icterus; PERRLA; moist mucus membrane; vision and hearing grossly intact Neck: supple; no lymphadenopathy; trachea midline Skin: warm, dry without signs of tenting; small superficial abrasion on the right posterior shoulder; no cyanosis; no rashes, bruising, lesions, or erythema noted CV: chest wall NTP; RRR; S1/S2 normal; no murmurs/rubs/gallops; pulses intact and symmetric at radial, DP, and PT Lungs: no acute respiratory distress; symmetrical chest wall expansion; clear br eath sounds across all lung colby w/o adventitious sounds; no wheezing ABD: Soft, NTP; BS present; no rebound/guarding; no distention MSK: No pain to palpation of the right shoulder or scalp; no tics or fasciculations; no edema noted in the LEs b/l, nonerythematous Neuro: A&Ox3; normal mood and affect; fluent speech; no focal deficits; sensation grossly intact in the LEs b/l Results & Data Results & Data Vital Signs (Past 12 Hours) Vital Signs Temp Pulse Pulse Resp BP BP Pulse Ox 08/05/23 11:47 81 20 160/96 H 100 08/05/23 11:00 98 08/05/23 10:09 84 18 147/86 H 98 08/05/23 09:57 98 08/05/23 09:51 36.4 C L 85 18 143/87 H 100 O2 Del Method O2 Flow Rate 08/05/23 11:47 Room Air 08/05/23 11:00 Room Air 0 08/05/23 10:09 Room Air 08/05/23 09:57 Room Air 08/05/23 09:51 Room Air Laboratory Results Abnormal lab results 08/05/23 Range/Units 10:10 Neut # (Auto) 7.52 H (1.40-6.50) K/uL Sodium 122 L (136-145) mmol/L Chloride 89 L (98-107) mmol/L Glucose 139 H (70-99(Fasting)) mg/dl Alkaline Phosphatase 109 H (34-104) U/L Diagnostic Findings Chest X-Ray 08/05/23 09:57 XR chest 1V portable CLINICAL HISTORY: Chest pain, nonspecific TECHNIQUE: Single frontal radiograph of the chest was obtained. Comparison: Comparison is made to chest radiograph 10/26/2022 FINDINGS: No lines and tubes are seen. The cardiomediastinal silhouette is normal. The lungs are clear. No evidence of pleural effusion or pneumothorax. IMPRESSION: No acute chest disease. ACT 112: Negative or not required by law. Electronically signed by: Alexx Clifton M.D. 08/05/2023 10:[address] 08/05/23 10:02 CT head/brain wo con CLINICAL HISTORY: syncope Technique: Contiguous axial CT images of the head were acquired from the base of the skull to the vertex without intravenous contrast administration. Images were viewed in brain, subdural and bone windows. Automated dose lowering techniques and/or adjustment according to patient size were utilized for this exam. Comparison: Comparison is made to CT head 11/06/2022 Findings: Areas of decreased attenuation are present in the periventricular and subcortical white matter bilaterally consistent with small vessel ischemic disease. Generalized cerebral atrophy with commensurate enlargement of the ventricles, sulci, and cisterns is also present. There is no acute intracranial hemorrhage or evidence of acute territorial infarction. No shift of the midline structures, mass effect, or extra-axial abnormalities are shown. Atherosclerotic calcifications are present in the intracranial segments of the internal carotid arteries. Imaged portions of the paranasal sinuses and mastoid air cells are clear. The orbits appear normal. There are no acute fractures of the calvaria or scalp swelling. Impression: No acute intracranial hemorrhage, no evidence of acute territorial infarction or other acute intracranial disease process. ACT 112: Negative or not required by law. Electronically signed by: Alexx Clifton M.D. 08/05/2023 10:39 AM ECG Additional Comments: ECG revealed NSR at 81 bpm; QTc 425 No significant change when compared to EKG on November 06, 2022 Code Status & VTE Plan VTE Prophylaxis Plan VTE Prophylaxis will be ordered: Yes Supervising Physician Co-Signing Physician Notes Patient seen and examined, chart reviewed, case discussed with Chintan Fonseca PA-C and I agree with the assessment and plan as above except as otherwise noted Labs and images reviewed 53-year-old male with history of Mnire's, BPD, schizoaffective disorder, COPD, tobacco use, anxiety who slipped and fell backwards hitting his head against the wall with a short loss of consciousness but without return to his normal cognitive baseline following recovery. Past history of syncope with Lyme. Normotensive/slightly hypertensive on initial hospitalist assessment. [email or web address]_type=default&display_r ank=3 is hyponatremic at 122 on ER assessment, has a history of mild hyponatremia however ranges around 934896, and was last 137 07/28. He is 122 on admission. Does have a history of CKD which fluctuates with frequent dehydration, patient does maintain a low-sodium diet for hypertension. He is not on a thiazide or ARB. He is on fluoxetine and oxcarbazepine. Seizure 6-7 years ago, gran dmal seizure. "Full blown seizure at that time" This episode seemed different, some tremors after passing out but no convulsion s/obvious seizure activity seen. No tongue biting, no urinary or bladder incontinence. No obvious seizure from history however duration of syncope lasting 5 minutes is longer than expected for vasovagal. Cardiogenic arrhythmia is possible, patient does not have any cardiac symptoms or arrhythmia on arrival. Will discuss with neurology regarding MRI/EEG. In the meantime we will keep on seizure precautions. Echo pending, continuous telemetry. Suspect medication-induced SIADH, urine studies are pending. Psychiatry consulted given patient's complex medication history and multiple failed regimens. Fluid restriction 1300 cc pending additional results PG Care Time/CCT Total # of Minutes Spent Total Time Spent with Patient: Total time spent is greater than 50% in coordination of care (as documented) at patient's floor/unit and/or counseling patient: Coding [place] [address] INT INP/OBS CARE MIN Patient Type Established History Comprehensive Exam Comprehensive Medical Decision Making High Complexity Diagnoses Syncope and collapse R55 Acute hyponatremia E87.1 History of seizure Z87.898 Schizoaffective disorder F25.9
[2023-08-05] MEDS: GADOBUTROL 65ML VIAL IV ONE (14:07)
--- NOTE | 2023-08-05 14:25 | Magnetic Resonance Report ---
MRI OF THE BRAIN COMBO CLINICAL HISTORY: Seizure. Syncope. COMPARISON STUDY: CT of the brain dated 08/05/2023. MRI of the brain dated 03/10/2020. TECHNIQUE: MRI of the brain was performed utilizing various T1 and T2-weighted sequences in the axial , sagittal, and coronal planes. Contrast-enhanced sequences were acquired following the administratio n of 9 cc of Gadavist. The examination is performed using the seizure protocol. FINDINGS: Brain parenchyma: There is mild involutional change. There is no hemorrhage or mass effect. There is no restricted diffusion to suggest acute ischemia. No enhancing mass lesion is identified on the post contrast images. Rader-white matter differentiation is preserved. No extra-axial fluid collection is s een. The cerebellar tonsils are normal in configuration. The hippocampi are normal and symmetric. Ventricles, sulci, and cisterns: Mild ventriculomegaly is similar to previous. Pituitary and sella: Unremarkable. Intracranial vasculature: Normal flow voids are maintained at the skull base. Orbits: The bony orbits are grossly intact. Orbital contents are normal in appearance. Sinuses and mastoids: Clear. Calvarium: Unremarkable. Cervical cord: Partially visualized cervical spinal cord is normal in morphology and signal intensity . IMPRESSION: No acute intracranial abnormality. ACT 112: Negative or not required by law. Electronically signed by: Abram Patel M.D. 08/05/2023 2:22 PM
[2023-08-05 15:46] LABS: BUN Creatinine Ratio 12.7 (10-20); Calcium 8.8 mg/dl (8.6-10.3); Creatinine Clr Calc Pharmacy 94.7 ml/min; Est GFR (African American) 96.8 ml/min; Est GFR (Non-African American) 83.5 ml/min; Magnesium 1.9 mg/dl (1.7-2.4); Potassium 4.1 mmol/L (3.5-5.1)
[2023-08-05] MEDS ORDERED: ACETAMINOPHEN 325 MG TAB PO PRN (15:51)
[2023-08-05] MEDS ORDERED: LORazepam 2 MG in SYRINGE 1 ML IV PRN (15:51)
--- NOTE | 2023-08-05 16:35 | Electrocardiogram Report ---
Test Reason : Blood Pressure : / mmHG Vent. Rate : 081 BPM Atrial Rate : 081 BPM P-R Int : 178 ms QRS Dur : 086 ms QT Int : 366 ms P-R-T Axes : 061 -10 058 degrees QTc Int : 425 ms Normal sinus rhythm Low voltage QRS Borderline ECG When compared with ECG of 06-NOV-2022 11:17, No significant change was found Confirmed by Emmanuel Gómez ([id number]) on 08/05/2023 4:34:36 PM Referred By: REFERRED SELF Confirmed By:Emmanuel Gómez
--- NOTE | 2023-08-05 16:54 | XCELERA ---
[id number] [id number]___[id number].pdf
[2023-08-05 17:21] LABS: BUN Creatinine Ratio 12.6 (10-20); Creatinine Clr Calc Pharmacy 89.2 ml/min; Est GFR (African American) 95.7 ml/min; Est GFR (Non-African American) 82.5 ml/min; Potassium 4.1 mmol/L (3.5-5.1)
[2023-08-05] MEDS: DIVALPROEX EXTENDED RELEASE 500 MG TAB PO SCH (20:13)
[2023-08-05] MEDS: SIMVASTATIN 10 MG TAB PO SCH (20:13)
[2023-08-05 20:26] LABS: BUN Creatinine Ratio 13.9 (10-20); Calcium 8.6 mg/dl (8.6-10.3); Creatinine Clr Calc Pharmacy 79.9 ml/min; Est GFR (African American) 83.7 ml/min; Est GFR (Non-African American) 72.3 ml/min; Potassium 3.6 mmol/L (3.5-5.1)
[2023-08-06 01:09] LABS: Anion Gap 5 (3-11); BUN Creatinine Ratio 16.7 (10-20); Blood Urea Nitrogen 21 mg/dl (6-23); Calcium 8.9 mg/dl (8.6-10.3); Carbon Dioxide 26 mmol/L (21-32); Chloride 104 mmol/L (98-107); Creatinine Clr Calc Pharmacy 72.9 ml/min; Est GFR (Non-African American) 64.7 ml/min; Glucose 140 mg/dl (70-99(Fasting)); Sodium 135 mmol/L (136-145)
[2023-08-06 06:54] LABS: Basophils # (auto) 0.06 K/uL (0.00-0.20); Basophils % (auto) 0.8 %; Eosinophils # (auto) 0.48 K/uL (0.00-0.50); Eosinophils % (auto) 6.3 %; Hematocrit (blood only) 40.2 % (42.0-52.0); Hemoglobin 13.7 g/dl (14.0-18.0); Immature Granulocytes # (auto) 0.04 K/uL (0.01-0.20); Immature Granulocytes % (auto) 0.5 %; Lymphocytes # (auto) 1.62 K/uL (1.20-3.40); Lymphocytes % (auto) 21.1 %; Mean Corpuscular Hemoglobin 28.7 pg (25.0-34.0); Mean Corpuscular Hgb Conc 34.1 g/dL (32.0-36.0); Mean Corpuscular Volume 84.1 fL (80.0-100.0); Mean Platelet Volume 9.4 fL (9.4-12.4); Monocytes # (auto) 0.68 K/uL (0.11-0.59); Monocytes % (auto) 8.9 %; Neutrophils % (auto) 62.4 %; Platelet Count 246 K/uL (130-400); RDW Coefficient of Variation 14.3 % (11.5-14.5); RDW Standard Deviation 43.6 fL (36.4-46.3); Red Blood Count 4.78 M/uL (4.70-6.10); White Blood Count 7.68 K/ul (4.8-10.8)
[2023-08-06 07:11] LABS: Anion Gap 6 (3-11); BUN Creatinine Ratio 16.1 (10-20); Blood Urea Nitrogen 19 mg/dl (6-23); Calcium 8.9 mg/dl (8.6-10.3); Carbon Dioxide 25 mmol/L (21-32); Chloride 105 mmol/L (98-107); Creatinine Clr Calc Pharmacy 79.7 ml/min; Est GFR (African American) 81.2 ml/min; Glucose 120 mg/dl (70-99(Fasting)); Magnesium 2.2 mg/dl (1.7-2.4); Sodium 136 mmol/L (136-145)
--- NOTE | 2023-08-06 13:24 | Electroencephalogram ---
EEG Procedure Note Date of Service August 06, 2023 Start / End Times Start Time: 54 End Time: 909 Referring Physician Chintan Fonseca PA-C History 53 year old with syncopal event 6 Home Medication List Medication Instructions Recorded Confirmed Type simvastatin 10 mg tablet 10 mg PO QPM 07/23/19 08/05/23 History oxcarbazepine 300 mg tablet 300 mg PO BID 08/05/23 08/05/23 History sertraline 50 mg tablet 50 mg PO DAILY 08/05/23 08/05/23 History Inpatient Medication List Divalproex Sodium (Divalproex Extended Release 500 Mg Tab) 500 mg PO BID LAVERN Stop: 09/04/23 20:59 Last Admin: 08/06/23 08:19 Dose: 500 mg Documented By: Admin: 08/05/23 20:13 Dose: 500 mg Documented By: MITCHEL Simvastatin (Simvastatin 10 Mg Tab) 10 mg PO QPM LAVERN Stop: 09/04/23 20:59 Last Admin: 08/05/23 20:13 Dose: 10 mg Documented By: MITCHEL Discontinued Medications Gadobutrol (Gadobutrol 65ml Vial) 9 ml IV ONCE ONE Stop: 08/05/23 14:07 Last Admin: 08/05/23 14:07 Dose: 9 ml Documented By: LACEY Sodium Chloride (Nss) 1,000 mls @ 999 mls/hr IV .Q1H1M STA Stop: 08/05/23 10:57 Last Infusion: 08/05/23 11:45 Dose: Infused Documented By: Admin: 08/05/23 10:10 Dose: 999 mls/hr Documented By: RENEE Description This is a 21 electrode EEG with a single channel dedicated to limited EKG. The electrodes were placed in accordance with the International 10-20 system. Interpretation The predominant background activity consists of a very well modulated 9.5 Hz activity, of up to 30 mV in amplitude,seen symmetrically distributed over the posterior head regions bilaterally. This activity attenuates nicely with eye- opening and other alerting procedures. Photic stimulation was performed and elicited no change in the background activity and no abnormal responses were seen. Hyperventilation was not performed. A mild amount of muscle and movement artifact activity contaminated the recording, yet did not hinder interpretation to any significant degree. The patient had some shaking of the limbs from time to time with no change of the background or abnormal responses seen. Throughout the waking portion of the recording, no focal abnormalities, abnormal slow activity, or potentially epileptogenic discharges were seen. The patient entered the drowsy state occasionally, with no further activation. In summary, this EEG was normal during wakefulness and drowsiness. No focal abnormalities, potentially epileptogenic discharges, or abnormal slow activity was seen, even with intermittent shaking. Clinical Correlation The abscence of potentially epileptogenic activity does not exclude a seizure disorder, since interictally, EEGs can be normal. Clinical correlation is required. [facility] EEG Procedure Codes Indication for Procedure (1) Syncope and collapse: (2) Seizure-like activity: Neurology Neurology: 86341 EEG include record awake & drowsy
--- NOTE | 2023-08-06 15:42 | Psychiatric Consultation ---
Date of Consultation August 06, 2023 Impression / Recommendations Impression 53 yo man with history of schizoaffective disorder with multiple prior medication trials and frequent side effects. Suspect he may be a slow metabolizer, discussed importance of starting at low dose and titrating slowly with future psychiatric medication changes and/or trials. So far he is tolerating the Depakote and this is a reasonable choice for mood stabilization. His denies a history of psychosis but given schizoaffective disorder we did discuss importance of notifying his outpatient psychiatric provider should any mood changes or psychosis develop so that additional medications could be added in the future if needed. For now both prefer for him to be only on Depakote. Hyponatremia was likely a response to Trileptal (can be seen as a side effect in up to 40% of individuals) so future SSRI trial felt to be reasonable if needed, would start low and follow sodium closely. Reviewed importance of regular labwork to monitor liver function while on Depakote. His was aware of this from research she had done. Reviewed that typically we recommend depakote level in 3-5 days; repeat CBC with diff, and LFTs at one month. Then CBC with diff, Depakote level, and LFTs annually or anytime symptoms arise. Overall, I spent a total of 60 minutes with this case including review of chart records, review of labwork, direct evaluation of the patient at bedside, counseling the patient, discussion of the patient with the Nurse and with the hospitalist provider, discussion with the psychiatric liason during clinical rounds, review of collateral historian information from the family and docume ntation in the electronic health record. (1) Acute hyponatremia: (2) Schizoaffective disorder: Plan -Safe for discharge from psychiatric standpoint -Continue Depakote ER 500mg BID -He has outpatient psychiatric provider, plans to call on Tuesday to schedule his next appointment Psych History Identifying Data 53 yo man with history of schizoaffective disorder vs bipolar disorder admitted for syncopal episode and hyponatremia. Psychiatry consulted for medication rec ommendations. Chief Complaint "I'd rather just be on the Depakote". History of Present Illness Jarvis was admitted following a syncopal episode at home, presumed to be due to hyponatremia. He was started on Trileptal and sertraline last week during a five day admission at the [facility] for homicidal ideation/intrusive thoughts. On admission to the hospital yesterday he was started on Depakote due to concern initially for possible seizure vs syncope and history of seizure about 6 years ago. Chart review also notable for history of Parkinsonism in the past. Today he denies any symptoms of psychosis nor thoughts of self-harm nor thoughts of harm to others. He is joined by his at bedside. He and his note significant trepidation about psychiatric medications given his history of having unusual and frequent side effects. So far both feel Depakote is a good option and prefer not to restart sertraline or to add any antipsychotic medication. He plans to call [facility] to see his provider there and agrees to let her know should he develop any new symptoms. Reports prior history of Parkinsonism with Latuda, SI with a medication for tardive dyskinesia, and rash with lamictal. Both he and his are hopeful for discharge today and he feels safe going home. Allergies Allergy/AdvReac Type Severity Reaction Status Date / Time peanut Allergy Intermediate Rash Verified 06/17/23 15:55 walnut Allergy Intermediate Rash Verified 06/17/23 15:55 lamotrigine Allergy Mild Rash Verified 06/17/23 15:55 pineapple Allergy Unknown Unknown Verified 06/17/23 15:55 oxcarbazepine AdvReac Severe Hyponatremi Verified 08/06/23 15:41 a tramadol AdvReac Mild NAUSEA/VOMI Verified 06/17/23 15:55 TING varenicline AdvReac Unknown Unknown Verified 06/17/23 15:55 Home Medications Medication Instructions Recorded Confirmed Type simvastatin 10 mg tablet 10 mg PO QPM 07/23/19 08/05/23 History divalproex 500 mg tablet,extended 500 mg PO BID #60 tabs 08/06/23 Rx release 24 hr Patient History Medical History Major depressive disorder Hypertension Essential hypertension Dyslipidemia Surgical History H/O atrial septal defect repair S/P tonsillectomy Family History Father Aortic stenosis Grandfather (Maternal) Prostate cancer Grandfather (Paternal) Prostate cancer Sister Thyroid cancer Social History Smoking Status: Current every day smoker Tobacco Type: Cigarettes Age Started Using Tobacco: 18; Age Quit Using Tobacco: 44; packs per day: 1; Second Hand Exposure: No; Do You Dip or Chew Tobacco: No; Hx Alcohol Use: No Hx Substance Use: No Preferred Language: Cantonese Faroese Communication Ability: Effective Passementerie Worker Required: No Beliefs That Will Affect Care: None Current Living Situation: Spouse Feels Safe at Home: Yes Gender Identity: Male Assistive Devices: None Physical Exam Psychiatric: Orientation: alert and oriented x 3 Apperance: appropriately dressed and appropriately groomed Eye Contact: good eye contact Motor Behavior: no abnormal motor movements Speech: normal rate/rhythm/volume of speech Affect: + constricted affect (but with a few smiles) Mood: no depressed mood and no anxious mood Thought Process: goal directed thought process and + concrete thought process Thought Content: reality based without delusions Suicidal Thoughts: denies suicidal thoughts Homicidal Thoughts: denies homicidal thoughts Hallucinations: no auditory hallucinations and no visual hallucinations Insight: + fair insight Judgment: + fair judgement Vital Signs (Past 24 Hours): Last Vital Signs Temp 36.8 C 08/06/23 11:07 Pulse 68 08/06/23 11:07 Resp 19 08/06/23 11:07 BP 125/84 08/06/23 11:07 Pulse Ox 99 08/06/23 11:07 O2 Del Method Room Air 08/06/23 11:07 O2 Flow Rate 0 08/05/23 11:00 Results & Data (PSY) Medications Administered Divalproex Sodium (Divalproex Extended Release 500 Mg Tab) 500 mg PO BID LAVERN Stop: 09/04/23 20:59 Last Admin: 08/06/23 08:19 Dose: 500 mg Documented By: Admin: 08/05/23 20:13 Dose: 500 mg Documented By: MITCHEL Simvastatin (Simvastatin 10 Mg Tab) 10 mg PO QPM LAVERN Stop: 09/04/23 20:59 Last Admin: 08/05/23 20:13 Dose: 10 mg Documented By: MITCHEL Coding Level of Care Code 72246 IN/OBS CONSULT LVL 4,60M Diagnoses Acute hyponatremia E87.1 Schizoaffective disorder F25.9
--- NOTE | 2023-08-06 15:57 | Discharge Summary ---
Discharge Summary Date of Service August 06, 2023 Principal Dx & Hospital Course #1 = Principal Diagnosis (1) Syncope and collapse: Syncope and collapse while standing in the bathroom the morning of 08/04 around 06:30 AM Witnessed by , who reports head strike and LOC x 5 minutes Mild convulsions shortly after syncope, but otherwise denies eye rolling, tongue biting, jerking, or loss of urinary continence No stroke-like symptoms Pt reports feeling nauseated prior to passing out and woke up covered in sweat. His reports it took him 5-10 minutes to "come around" after he woke back up. He has passed out twice in the previous 9 months as well, always associated with nausea or vomiting and always after taking a new psych medication. Hyponatremia also contributed to his syncope-now resolved with stopping oxcarbazepine and giving IVFs Seizure not likely. EEG also normal, prolactin normal in ER Discussed care with Neurology, Dr. Torres who agrees with evaluation. Continue Depakote as mood stabilizer, but do not suspect seizure disorder Ok to drive after repeat BMP on Tuesday to ensure Na+ levels remain normal. Cautioned to pull car over if feeling nauseated and lie flat. Head CT negative, ECHO normal, ECG normal, troponin negative, and no events on telemetry monitoring Recommend 30 day event monitor after dsicharge-placed referral for this to be ordered through nurse navigator (2) Acute hyponatremia: Sodium 122 on arrival-This is an acute drop in sodium from 137 (measured 1 week prior) Started oxcarbazepine/sertraline on Sunday 07/30; likely medication-induced No history of SIADH Urine Osm, Serum Osm, and Ur Na+ consistent with SIADH 1200 mL fluid restriction and 1L NS given, offending meds stopped Na+ came up to 136 by the next day Follow BMP on Tuesday (3) History of seizure: Hx of seizures 6 to 7 years ago, according to involving eye rolling and convulsions (4) Bipolar disorder: Bipolar, schizoaffective d/o--> Psych consult appreciated. No need for inpat psych. He was just discharged from [facility] inpatient psych the day prior to admission Stop oxcarbazepine and sertraline. Started Depakote ER 500mg po bid check depakote level, CBC, CMP on Tuesday before AM dose f/u with Psych outpt Plan Disposition: dc to home Discussed care with at bedside VTE PPx: SCDs Notes For Next Care Provider F/u on CBC, CMP, Depakote level on Tuesday Medication Changes From Visit Started Depakote ER 500mg po bid Stopped oxcarbazepine and sertraline Admission HPI Per Admitting Provider Jarvis is a 53yo male with PMH of Mnire's disease, anxiety, bipolar disorder, migraines, schizoaffective disorder, COPD, tobacco abuse, and homicidal ideations. Presented for syncopal event on 08/04. He was assisting his out of the shower around 629 when he abruptly syncopized and fell forward onto her. Full LOC. Patient struck his head and posterior right shoulder. Patient's witnessed the event, and reports he did have some convulsions shortly after fainting, but denies any other seizure-like activity such as tongue biting, rolling eyes, or loss of urinary continence. reports that he did have a history of a seizure 6-7 years ago, that involved convulsions and eye rolling. Patient was unconscious for approximately 5 minutes, per . When he get regained consciousness, he was dazed and confused, but reports he is back to his baseline now. He denies dizziness or lightheadedness prior to the fall. However he did feel nauseous prior to falling, and reports a change in his vision (saw a "colored ring" upon weight this morning). Patient recently started taking Trileptal (oxcarbazepine 300 mg twice daily) as well as Zoloft on Tuesday. Prior to this he had been on Latuda for 2 years. He reports that he took all of his regular morning medications today. Patient was recently at the [facility] for the past 5 days, but was discharged yesterday. He had previously stopped Latuda without mentioning to his , and is only recently started on oxcarbazepine. He has had difficulty with his psych medications for schizoaffective disorder in the past. 2 episodes of prior syncope, with the last being in March 2023 (he did not come into the hospital at that time and is unsure what caused him to syncopized); as well as in October 2022 when he had Lyme disease and required hospitalization. He denies history of stroke or strokelike symptoms prior to syncope such as slurred speech, facial droop, or unilateral deficits. Patient is a current tobacco cigarette smoker; less than 1 PPD. No recent alcohol use. He has tried Lamictal in the past, but reports this leads to development of a rash. He reports he has done well on Depakote in the past. Patient is hypertensive at 160/96 at time of admission; SpO2 100% on RA; vitals otherwise stable. ED course: NSS 1000 mL IV ROS: Patient endorses syncope, mild HOWARD, changes in vision, and nausea prior to syncope. Patient denies fever, chills, night-sweats, new body aches, dizziness/lightheadedness prior to syncope, blurry vision, double vision, loss of vision, photophobia, changes in taste/smell/hearing, difficulty swallowing, chest pain, SOB, cough, pleuritic CP, chest palpitations, abdominal pain, vomiting, diarrhea, changes in urinary/bowel habits, burning with urination, blood in the urine/stool, dysuria, or numbness/tingling/weakness in the arms or legs. Discharge Exam Constitutional WD/WN, vitals as above Respiratory normal respiratory effort, lungs clear to auscultation Cardiovascular RRR, no murmur, no edema Gastrointestinal (Abdomen) normal bowel sounds, soft, nontender, no hepatosplenomegaly Psychiatric A+Ox3, euthymic affect Updated Medication List Medication Instructions Recorded Confirmed Type simvastatin 10 mg tablet 10 mg PO QPM 07/23/19 08/05/23 History oxcarbazepine 300 mg tablet 300 mg PO BID 08/05/23 08/05/23 History sertraline 50 mg tablet 50 mg PO DAILY 08/05/23 08/05/23 History divalproex 500 mg tablet,extended 500 mg PO BID #60 tabs 08/06/23 Rx release 24 hr Hospital Stay Data Consultations 08/05/23 11:52 ED Decision to Admit Stat 08/05/23 15:51 Consult Psychiatry Routine 08/06/23 15:40 Consult [facility] airplane technician Routine Diagnostic Imagining Performed 08/05/23 10:02 CT head/brain wo con Stat 08/05/23 12:56 MR brain seizure wo/w con Stat ECHO Pending Results Patient Have Any Pending Studies at Discharge: No Discharge Instructions Given to Patient (Per Discharging Provider) You were admitted after you passed out and were found to have very low sodium levels. This was likely a side effect from the new medications you were started on-the oxcarbazepine in particular. Your workup of the heart and for seizures was all normal. You will be sent a heart monitor to wear for 30 days to look for abnormal heart rhythms as a cause of why you have passed out several times in the last year. You were started on depakote for your mood stabilizer and will need to have levels drawn in the morning, before you take your depakote, on Tuesday. Your sodium level returned to normal. Please have blood work on Tuesday to ensure they are remaining in a normal range. Follow up with your Psychiatrist and PCP as well. Total Time Total Time Spent Total Time Spent (In Minutes): 35 min Total Time Includes: Examination of the Patient, Discharge Planning, Medication Reconciliation and Communication With Other Providers (Neurology,Psychiatry) Coding Level of Care Code 51728 INP/OBS DISCH >30 MIN Diagnoses Syncope and collapse R55 Acute hyponatremia E87.1 History of seizure Z87.898 Bipolar disorder F31.9
== END 2023-08-06 17:03 | disposition home or self-care (01) | DRG 312 ==
LOC: ED 09:48 → EDINP 12:47 → SUATTDRO 12:47 → 2S 15:28

== ENCOUNTER 2024-05-10 05:43 | Observation (INO) ==
--- NOTE | 2024-05-04 12:56 | Anesthesiology Consultation ---
Date of Service May 04, 2024 Assessment & Plan Chart Review Chart Review: Acceptable Risk for Surgery and Patient NOT seen in Pre Admission Testing Consults Requested none History Surgery Operation Date: 05/10/24 13:20 Proposed Procedures p TURP (Transurethral Resection of the Prostate) - Dg Alvarez DO Height/Weight Height: 5 ft 8 in Weight: 89.811 kg Allergies Allergy/AdvReac Type Severity Reaction Status Date / Time peanut Allergy Intermediate Rash Verified 05/03/24 10:42 lamotrigine Allergy Mild Rash Verified 05/03/24 10:42 pineapple Allergy Unknown Unknown Verified 05/03/24 10:42 oxcarbazepine AdvReac Severe Hyponatremi Verified 05/03/24 10:42 a tramadol AdvReac Mild NAUSEA/VOMI Verified 05/03/24 10:42 TING varenicline AdvReac Unknown Unknown Verified 05/03/24 10:42 Medications Home Medications Medication Instructions Recorded Confirmed Last Taken simvastatin 10 mg tablet 10 mg PO QPM 07/23/19 05/03/24 01/23/21 galcanezumab-gnlm 120 mg/mL 120 mg subcut MONTHLY 30 days #1 mL 11/28/23 05/03/24 Unknown subcutaneous pen injector (Emgality Pen) rimegepant 75 mg disintegrating 75 mg PO DAILY PRN migraine 11/28/23 05/03/24 Unknown tablet (Nurtec ODT) headache #8 tabs rizatriptan 10 mg tablet 10 mg PO .COMPLEX PRN migraine 11/28/23 05/03/24 Unknown headache #9 tabs ipratropium 20 mcg-albuterol 100 1 puff inhalation Q6H PRN sob #4 12/19/23 05/03/24 Unknown mcg/actuation mist for inhalation grams (Combivent Respimat) metformin 500 mg tablet 500 mg PO BID #180 tabs 12/22/23 05/03/24 Unknown fluticasone fur. 200 mcg-umeclid 1 inh inhalation DAILY #60 ea 04/16/24 05/03/24 Unknown 62.5 mcg-vilant 25 mcg inhalat.powder (Trelegy Ellipta) divalproex 500 mg tablet,extended 500 - 1,000 mg PO UD 04/24/24 05/03/24 Unknown release 24 hr N Acetylcystine 600 mg PO BID 05/03/24 05/03/24 Unknown lisinopril 10 mg tablet 10 mg PO QAM 05/03/24 05/03/24 Unknown pantoprazole 40 mg tablet,delayed 40 mg PO QPM 05/03/24 05/03/24 Unknown release tamsulosin 0.4 mg capsule 0.4 mg PO QPM 05/03/24 05/03/24 Unknown sulfamethoxazole 800 1 tab PO BID 3 days #6 tabs 05/04/24 Unknown mg-trimethoprim 160 mg tablet (Bactrim DS) Past Medical History Medical History (Updated 05/03/24 @ 11:10 by Jyoti Hankins) [place] (hard of hearing) pt cannot hear without hearing aides History of anesthesia reaction "i get a little goofy from it" Mild neurocognitive disorder Tremor "all over" Anxiety Schizoaffective disorder Hx of migraines CKD (chronic kidney disease) stage 2, GFR 60-89 ml/min follows with dr. watson, neph at [facility] Prediabetes GERD (gastroesophageal reflux disease) Asthma-COPD overlap syndrome daily inhaler and prn (last used yesterday) BPH w urinary obs/LUTS History of Meniere's disease History of deviated nasal septum surgery to to correct Syncope and collapse hx Drug-induced parkinsonism History of seizure reports had 1 seizure due to low sodium level- approx 2021- none since History of tobacco abuse Acute hyponatremia 1500 ml fluid restriction due to sodium Major depressive disorder Hypertension Essential hypertension Dyslipidemia Past Family History Family History Father Aortic stenosis Grandfather (Maternal) Prostate cancer Grandfather (Paternal) Prostate cancer Sister Thyroid cancer Other Colonic polyp Colorectal cancer Denies family history of Ovarian cancer Myocardial infarction Breast cancer Past Surgical History Surgical History (Updated 05/03/24 @ 11:10 by Jyoti Hankins) Hx of colonoscopy History of esophagogastroduodenoscopy (EGD) Hx of wisdom tooth extraction History of ear surgery right ear, had nerve clipped to help with meniere's disease History of nasal surgery (1988) due to deviated nasal septum S/P tonsillectomy Social History Smoking Status: Current every day smoker tobacco type: cigarettes Smoking cigarettes per day: 1/2 ppd (advised) Do You Dip or Chew Tobacco: No Hx Alcohol Use: Yes alcohol intake frequency: a few times a month Hx Substance Use: No substance use type: does not use
[2024-05-10] MEDS: LR 15ML/HR IV SCH (06:21)
--- NOTE | 2024-05-10 06:40 | History & Physical Bridge Note ---
Date of Service May 10, 2024 History & Physical Bridge Note I have examined the patient, reviewed the History & Physical and in the interval since the performance of the History & Physical I have noted the following changes of clinical significance: no changes noted
[2024-05-10] MEDS ORDERED: MoRPHine SULFATE 2 MG/ML CARP IV PRN (06:41)
[2024-05-10] MEDS ORDERED: ONDANSETRON INJ 2 MG/ML 2 ML VIAL IV PRN ×2 (06:41→07:10)
[2024-05-10] MEDS ORDERED: PHENAZOPYRIDINE HCL 200 MG TAB PO PRN (06:41)
[2024-05-10] MEDS ORDERED: IPRATROPIUM BROMIDE/ALBUTEROL respimat INH INH PRN (06:43)
[2024-05-10] MEDS ORDERED: RIZATRIPTAN BENZOATE 10 MG TAB PO PRN (06:43)
[2024-05-10] MEDS ORDERED: NON-FORMULARY MEDICATION (Galcanezumab-Gnlm [Emgality Pen] 120 mg/mL pen injector) SQ SCH (06:45)
[2024-05-10] MEDS ORDERED: DIVALPROEX EXTENDED RELEASE 500 MG TAB PO SCH (06:45)
[2024-05-10] MEDS ORDERED: LIDOCAINE 2% 2 ML VIAL/AMP(20MG/ML) INFIL ONE (06:56)
[2024-05-10] MEDS ORDERED: PROPOFOL IV EMULSION 10 MG/ML 20 ML VIAL IV ONE (06:57)
[2024-05-10] MEDS ORDERED: GLYCOPYRROLATE 0.2 MG/ML VIAL ONE (06:57)
[2024-05-10] MEDS ORDERED: MIDAZOLAM HCL 1 MG/ML 2ML VIAL ONE (07:02)
[2024-05-10] MEDS ORDERED: fentaNYL citrate PF 100 MCG/2 ML VIAL ONE (07:03)
[2024-05-10] MEDS ORDERED: SUCCINYLCHOLINE CHLORIDE 20 MG/ML 10 ML VIAL IV ONE (07:04)
[2024-05-10] MEDS ORDERED: ONDANSETRON INJ 2 MG/ML 2 ML VIAL ONE (07:05)
[2024-05-10] MEDS ORDERED: DEXAMETHASONE SOD INJ 4 MG/ML VIAL ONE (07:05)
[2024-05-10] MEDS ORDERED: ePHEDrine sulfate 50 MG/ML AMP IV PRN (07:10)
[2024-05-10] MEDS ORDERED: ATROPINE SULFATE 0.1 MG/ML 10ML SYR IV PRN (07:10)
[2024-05-10] MEDS: ceFAZolin 2000MG 2,000 MG/15 ML SYR IV SCH (07:25)
[2024-05-10] MEDS: fentaNYL citrate PF 100 MCG/2 ML VIAL IV PRN (08:21)
--- NOTE | 2024-05-10 08:28 | Operative Report ---
PG Post Operative Report Pre & Post Diagnosis Operation Date: 05/10/24 07:15 Pre-Op Diagnosis: BPH with Urinary Obstruction Post-Op Diagnosis: BPH with Urinary Obstruction I identified the patient and participated in the time-out.: Yes Procedure Operation Date: 05/10/24 07:15 Actual Procedures TURP (Transurethral Resection of the Prostate) - Dg Alvarez DO Surgeon Dg Alvarez, II, DO Mobile Ui/Ux Designer None Estimated Blood Loss 5 Findings Consistent with Post-Op Diagnosis Large Prostate with obstruction. Specimens Prostate adenoma. Drains 22Fr [address] Catheter Anesthesia Type General Complications none Disposition Disposition: Recovery Room Indications Patient with obstruction due to prostate enlargement. Risks and benefits discussed at length. Description of Procedure Patient was consented and brought back to the operating room. Patient was placed under anesthesia in the supine position and moved to the dorsal lithotomy position. Patient was prepped and draped in the regular sterile fashion. A time out was completed. A 30degree Cystoscope was placed into the bladder and the entire bladder was examined. The UO's were identified as well as the bladder neck, trigone, dome, and the other important landmarks. The prostatic urethra and large lobes/adenoma was assessed and the veru and bladder neck identified and area/size was assessed. The resection scope was placed and the fine bipolar loop was selected. Starting at the 5 and 7 o'clock positions, a channel was created from bladder neck to the veru. Resection of the lateral lobes was then completed. Tissue was resected down to capsule fibers. The Specimen was removed and sent for analysis. The resection bed and any bleeding areas were fulgurated/cauterized and the entire area inspected. All bleeding was controlled. The bladder was inspected a final time. The bladder was emptied and irrigated. All specimen and debris was removed. The scope was removed with the bladder partially full. A catheter was placed and balloon elevated. This was easily irrigated. The patient was cleaned, aroused from anesthesia, and transferred to the pacu in stable condition having tolerated the procedure well with no complications. I was present and participated in all aspects of the procedure. The patient will be monitored in the PACU until transferred. Plan to maintain catheter on CBI. Will observe overnight. Plan to maintain catheter for approx 1 week. I attest to the content of the Intraoperative Record and any orders documented therein. Any exceptions are noted below.
[2024-05-10 09:00] LABS: Hemoglobin 13.1 g/dl (14.0-18.0); Mean Corpuscular Hemoglobin 30.3 pg (25.0-34.0); Mean Corpuscular Hgb Conc 33.6 g/dL (32.0-36.0); Mean Corpuscular Volume 90.1 fL (80.0-100.0); Platelet Count 177 K/uL (130-400); RDW Coefficient of Variation 14.2 % (11.5-14.5); RDW Standard Deviation 46.5 fL (36.4-46.3); Red Blood Count 4.33 M/uL (4.70-6.10); White Blood Count 7.99 K/ul (4.8-10.8)
[2024-05-10] MEDS ORDERED: NON-FORMULARY MEDICATION (Fluticasone-Umeclidin-Vilanter [Trelegy Ellipta] 200-62.5-25 mcg INH SCH (09:00)
--- NOTE | 2024-05-10 09:36 | Hospitalist Consultation ---
Date of Consultation May 10, 2024 Assessment & Plan (1) S/P TURP: (2) Prediabetes: (3) Asthma-COPD overlap syndrome: (4) Hx of migraines: (5) Seizure disorder: Plan Jarvis is a pleasant 53-year-old male who underwent a TURP with Dr. Alvarez on 05/10. Hospitalist service consulted for medical management (COPD, diabetes, and migraines). #S/P TURP Current BMP/renal function is still pending at time of consult Continue tamsulosin HS Perioperative antibiotics, pain control, fluids, and DVT PPx per primary team Agree with a.m. CBC, CMP; we will follow #Prediabetes Last A1c at 5.8% on 04/06/2024 Hold metformin, resume on discharge Will add on SSI with target BSG range 110-180mg/dL, CF 50, no carb ratio Added on hypoglycemia medications Advance to T2DM diet as tolerated BSG ACHS Adjust regimen as needed #AsthmaCOPD overlap syndrome Patient is now off of supplemental oxygen and on room air at time of consult No respiratory complaints Continue home inhalers PRN #Migraines Patient reports he is currently migraine free Rizatriptan PRN Rimegepant (Nurtec) daily PRN #Seizure disorder Will give patient's morning dose of divalproex (500mg) Continue divalproex (500 mg in the morning and 1000 mg in the evening) Agree with current medical management: Disposition: Continued observation on MedSurg Advance to T2DM diet as tolerated VTE PPx: SCD/teds Thank you for allowing us to precipitate in the care of this patient, please reach out with any questions or concerns; we will continue to follow. Supervising Physician Co-Signing Physician Notes Patient seen and examined, chart reviewed, case discussed with Chintan Fonseca PA-C and I agree with the assessment and plan as above except as otherwise noted Labs and images reviewed 53-year-old male who presents as a medical management postop consult after TURP. He has a history of asthmaCOPD overlap, migraines, seizures, prediabetes. He has some groin pain postoperatively otherwise doing well. No current headache, no wheezing, no shortness of breath/chest pain. VSS at time of bedside assessment. Divalproex resumed. At time bedside assessment his main concern is whether or not he should be on metformin due to his kidney disease. Did review that metformin is a first-line and generally safe medication with a good benefit profile for use in diabetes as long as his GFR remains above 45. Discussed that sometimes the dose will be adjusted or discontinued between a GFR of 30-45, and discontinued if it falls under 30. His GFR on review has been consistently above 50. Also discussed that while in the hospital we often use sliding scale insulin in the hospital setting for more tightly managed in titratable control, he was not switched to this due to a concern regarding long-term inappropriateness of his metformin. No other questions time of visit, expresses appreciation of discussion and care. History of Present Illness Reason for Consultation: Medical management Requesting Physician: Elia Alvarez II, Attending Physician: Dg Alvarez II, DO History of Present Illness Jarvis is a 53-year-old male with PMH of COPD, severe persistent asthma, tobacco abuse, seizure-like activity, schizoaffective disorder, prediabetes, migraines, GERD, and CKD. He presented for a TURP with Dr. Alvarez on 05/10. Per review of operative note, EBL was listed as 5 cc, general anesthesia was used, and there were no reported intraoperative complications. Per review of patient's vitals postop, he had one episode of mild hypotension at 108/51, but vitals have otherwise been stable; SpO2 is now 96% on room air at time of consult. Patient reports he is still experiencing some groin pain. He reports that his pain is 6/10 at present, and was 8/10 after the procedure. He describes it as a constant, squeezing pain. No radiation. Patient did not take any of his regular morning medicine today, as he was told to be n.p.o. after midnight; did not take morning seizure medications. He has also not had anything to eat or drink since his procedure, but does report he is looking forward to having some coffee and breakfast. No supplemental oxygen at baseline or CPAP at night. He reports that, while he had a migraine last night and took some rizatriptan, he does not currently have a migraine. Patient reports he is prediabetic, and does take metformin, but has not required insulin in the past. He has no respiratory complaints at this time, and reports his COPD is well-managed on Combivent and Trelegy. Prior to his operation, patient was having urinary frequency due to enlarged prostate and occasional burning with urination. He denies hematuria. Overall, he has no new complaints other than mild pain control at this time. ROS: Patient endorses groin pain. Patient denies fever, sweating, chills, dizziness, lightheadedness, headache, migraine, chest pain, SOB, pleuritic CP, cough, abdominal pain, N/V/D, blood in the urine, melena, or saddle anesthesia. Allergies Allergy/AdvReac Type Severity Reaction Status Date / Time peanut Allergy Intermediate Rash Verified 05/03/24 10:42 lamotrigine Allergy Mild Rash Verified 05/03/24 10:42 pineapple Allergy Unknown Unknown Verified 05/03/24 10:42 oxcarbazepine AdvReac Severe Hyponatremi Verified 05/03/24 10:42 a tramadol AdvReac Mild NAUSEA/VOMI Verified 05/03/24 10:42 TING varenicline AdvReac Unknown Unknown Verified 05/03/24 10:42 Home Medications Medication Instructions Recorded Confirmed Type simvastatin 10 mg tablet 10 mg PO QPM 07/23/19 05/10/24 History galcanezumab-gnlm 120 mg/mL 120 mg subcut MONTHLY 30 days #1 mL 11/28/23 05/10/24 Rx subcutaneous pen injector (Emgality Pen) rimegepant 75 mg disintegrating 75 mg PO DAILY PRN migraine 11/28/23 05/10/24 Rx tablet (Nurtec ODT) headache #8 tabs rizatriptan 10 mg tablet 10 mg PO .COMPLEX PRN migraine 11/28/23 05/10/24 Rx headache #9 tabs ipratropium 20 mcg-albuterol 100 1 puff inhalation Q6H PRN sob #4 12/19/23 05/10/24 Rx mcg/actuation mist for inhalation grams (Combivent Respimat) metformin 500 mg tablet 500 mg PO BID #180 tabs 12/22/23 05/10/24 Rx fluticasone fur. 200 mcg-umeclid 1 inh inhalation DAILY #60 ea 04/16/24 05/10/24 Rx 62.5 mcg-vilant 25 mcg inhalat.powder (Trelegy Ellipta) divalproex 500 mg tablet,extended 500 - 1,000 mg PO UD 04/24/24 05/10/24 History release 24 hr N Acetylcystine 600 mg PO BID 05/03/24 05/10/24 History lisinopril 10 mg tablet 10 mg PO QAM 05/03/24 05/10/24 History pantoprazole 40 mg tablet,delayed 40 mg PO QPM 05/03/24 05/10/24 History release tamsulosin 0.4 mg capsule 0.4 mg PO QPM 05/03/24 05/10/24 History Patient History Medical History (Updated 05/10/24 @ 10:20 by Chintan Fonseca PA-C) [place] (hard of hearing) pt cannot hear without hearing aides History of anesthesia reaction "i get a little goofy from it" Mild neurocognitive disorder Tremor "all over" Anxiety Schizoaffective disorder CKD (chronic kidney disease) stage 2, GFR 60-89 ml/min follows with dr. watson, neph at [facility] Prediabetes GERD (gastroesophageal reflux disease) Asthma-COPD overlap syndrome daily inhaler and prn (last used yesterday) BPH w urinary obs/LUTS History of Meniere's disease History of deviated nasal septum surgery to to correct Syncope and collapse hx Drug-induced parkinsonism History of seizure reports had 1 seizure due to low sodium level- approx 2021- none since History of tobacco abuse Acute hyponatremia 1500 ml fluid restriction due to sodium Major depressive disorder Hypertension Essential hypertension Dyslipidemia Surgical History (Updated 05/10/24 @ 10:20 by Chintan Fonseca PA-C) Hx of colonoscopy History of esophagogastroduodenoscopy (EGD) Hx of wisdom tooth extraction History of ear surgery right ear, had nerve clipped to help with meniere's disease History of nasal surgery (1988) due to deviated nasal septum S/P tonsillectomy Family History Father Aortic stenosis Grandfather (Maternal) Prostate cancer Grandfather (Paternal) Prostate cancer Sister Thyroid cancer Other Colonic polyp Colorectal cancer Denies family history of Ovarian cancer Myocardial infarction Breast cancer Social History Smoking Status: Current every day smoker Tobacco Type: Cigarettes Age Started Using Tobacco: 18; packs per day: 0.5; Cigarettes Per Day: 1/2 ppd (advised); Second Hand Exposure: No; Do You Dip or Chew Tobacco: No; Tobacco Cessation Education Requested by Patient: No Hx Alcohol Use: Yes Hx Substance Use: No Preferred Language: Irish Communication Ability: Effective Visual Impairment: No Limitations Hearing Ability: Use of Hearing Aid 7Th Grade Teacher Required: No Beliefs That Will Affect Care: None Current Living Situation: Spouse current occupational status: employed current occupation: [employer] Other Information That Helps Us Care for You: No Feels Safe at Home: Yes Safety Concerns: Feels Safe At This Time Childhood Exposure to Second-Hand Smoke: Yes Diet: regular Diet Comment: regular caffeine: Yes during the past year weight has: remained stable Dental Care, Regularly: No Physical Activity Frequency: Daily Seatbelt Use: always Gender Identity: Male Assistive Devices: Contacts, Glasses and Hearing Aid - Bilateral Review of Systems Review of Systems: See HPI above Physical Exam Physical Exam: General: no acute distress; pleasant affect; mother at bedside; non-toxic appe aring; well-nourished; cooperative; SpO2 96% on room air HEENT: normocephalic, atraumatic; no scleral icterus; PERRLA; vision and hearing intact Neck: supple; trachea midline Skin: warm, dry without signs of tenting; no cyanosis; no rashes, bruising, lesions, or erythema noted CV: chest wall NTP; RRR; S1/S2 normal; no murmurs/rubs/gallops; pulses intact and symmetric at radial, DP, and PT Lungs: no acute respiratory distress; symmetrical chest wall expansion; clear breath sounds across all lung colyb w/o adventitious sounds; no wheezing ABD: Soft, NTP; BS present; no rebound/guarding; no distention : Negative suprapubic tenderness; Guerrier catheter in place draining clear yellow urine; no signs of bleeding MSK: no tics or fasciculations; no edema noted in the LEs b/l, nonerythematous (SCDs/teds in place) Neuro: A&Ox3; normal mood and affect; fluent speech; no focal deficits; patient reports that sensation is intact and symmetric in lower extremities bilaterally assessed via light touch of the feet Results & Data Results & Data Vital Signs (Past 12 Hours) Vital Signs Temp Pulse Resp BP Pulse Ox O2 Del Method O2 Flow Rate 03/27/25 09:05 36.4 C L 84 13 123/80 100 Nasal Cannula 2 05/10/24 08:55 82 12 115/80 99 Nasal Cannula 2 05/10/24 08:45 86 12 120/61 100 Nasal Cannula 2 05/10/24 08:35 92 H 12 108/51 L 100 Nasal Cannula 2 05/10/24 08:25 100 H 17 111/69 92 Room Air 05/10/24 08:16 36.0 C L 104 H 16 112/72 100 Oxymask 6 05/10/24 06:05 36.4 C L 88 18 116/86 96 Room Air Laboratory Results Abnormal lab results 05/10/24 Range/Units 08:44 RBC 4.33 L (4.70-6.10) M/uL Hgb 13.1 L (14.0-18.0) g/dl Hct 39.0 L (42.0-52.0) % RDW Std Deviation 46.5 H (36.4-46.3) fL MPV 9.0 L (9.4-12.4) fL PG Care Time/CCT Total # of Minutes Spent Total Time Spent with Patient: Total time spent is greater than 50% in coordination of care (as documented) at patient's floor/unit and/or counseling patient: C[place] [address] IN/OBS CONSULT LVL 3,45M Patient Type Established Medical Decision Making Moderate Complexity Diagnoses S/P TURP Z90.79 Prediabetes R73.03 Asthma-COPD overlap syndrome J44.89 Hx of migraines Z86.69 Seizure disorder G40.909
[2024-05-10] MEDS ORDERED: GLUCOSE 10 TAB/TUBE PO PRN (10:09)
[2024-05-10] MEDS ORDERED: GLUCAGON FOR INJ 1 MG VIAL SQ PRN (10:09)
[2024-05-10] MEDS ORDERED: DEXTROSE 50% 50 ML SYRINGE IV PRN (10:09)
[2024-05-10] MEDS ORDERED: CARBOHYDRATES FOR HYPOGLYCEMIA PO PRN (10:09)
[2024-05-10] MEDS ORDERED: GLUCOSE 40% GEL 15 GM TUBE PO PRN (10:09)
[2024-05-10] MEDS ORDERED: Albuterol HFA 8 GM Inhaler (Combivent Respimat P&T Subs) INH PRN (10:33)
[2024-05-10] MEDS ORDERED: Ipratropium HFA Inhaler (Combivent Respimat P&T Subs) INH PRN (10:34)
[2024-05-10 10:46] LABS: Albumin Level 3.8 gm/dl (3.4-5.0); BUN Creatinine Ratio 12.1 (10-20); Bilirubin,Total 0.3 mg/dl (0.2-1.0); Calcium 8.3 mg/dl (8.6-10.3); Globulin 1.9 gm/dl (2.5-4.0); Potassium 4.2 mmol/L (3.5-5.1); Total Protein 5.7 gm/dl (6.0-8.3)
[2024-05-10] MEDS: DOCUSATE SODIUM 100 MG CAP PO SCH (11:12)
[2024-05-10] MEDS: DIVALPROEX EXTENDED RELEASE 500 MG TAB PO ONE (11:12)
[2024-05-10] MEDS: oxyCODONE/ACETAMINOPHEN 5mg/325mg TAB PO PRN (11:12)
--- NOTE | 2024-05-10 11:21 | Anesthesiology Progress Note ---
Date of Service May 10, 2024 Anesthesia Post Procedure Vital Signs Vital Signs: Temp Pulse Pulse Resp BP Pulse Ox O2 Del Method 05/10/24 10:25 36.4 C L 74 16 100/66 97 Room Air 05/10/24 09:55 79 16 118/81 96 Room Air 05/10/24 09:05 36.4 C L 84 13 123/80 100 Nasal Cannula 05/10/24 08:55 82 12 115/80 99 Nasal Cannula 05/10/24 08:45 86 12 120/61 100 Nasal Cannula 05/10/24 08:35 92 H 12 108/51 L 100 Nasal Cannula 05/10/24 08:25 100 H 17 111/69 92 Room Air 05/10/24 08:16 36.0 C L 104 H 16 112/72 100 Oxymask 05/10/24 06:05 36.4 C L 88 18 116/86 96 Room Air O2 Flow Rate 05/10/24 10:25 05/10/24 09:55 05/10/24 09:05 2 05/10/24 08:55 2 05/10/24 08:45 2 05/10/24 08:35 2 05/10/24 08:25 05/10/24 08:16 6 05/10/24 06:05 Pain Intensity Penis: Pain Intensity: 5 Transfer of Care Handoff Completed per policy Notes Mental Status: alert / awake / arousable Patient Amnestic to Procedure: Yes Nausea / Vomiting: adequately controlled Pain: adequately controlled Airway Patency, RR, SpO2: stable & adequate BP & HR: stable & adequate Hydration State: stable & adequate Anesthetic Complications: no major complications apparent
[2024-05-10] MEDS: INSULIN ASPART PER UNIT CHARGE SC SCH (12:38)
[2024-05-10] MEDS: CIPROFLOXACIN / D5W 400 MG/200 ML BAG IV SCH (12:38)
[2024-05-10] MEDS: DIVALPROEX EXTENDED RELEASE 500 MG TAB PO SCH (20:54)
[2024-05-10] MEDS: PANTOprazole 40 MG TAB PO SCH (20:54)
[2024-05-10] MEDS: TAMSULOSIN HCL 0.4 MG CAP PO SCH (20:54)
[2024-05-11 07:15] LABS: Hematocrit (blood only) 41.3 % (42.0-52.0); Mean Corpuscular Hemoglobin 29.5 pg (25.0-34.0); Mean Corpuscular Hgb Conc 33.9 g/dL (32.0-36.0); Mean Corpuscular Volume 86.9 fL (80.0-100.0); Mean Platelet Volume 9.1 fL (9.4-12.4); Platelet Count 223 K/uL (130-400); RDW Coefficient of Variation 13.9 % (11.5-14.5); RDW Standard Deviation 44.5 fL (36.4-46.3); Red Blood Count 4.75 M/uL (4.70-6.10); White Blood Count 14.43 K/ul (4.8-10.8)
[2024-05-11 07:28] LABS: Albumin Globulin Ratio 1.9 (0.9-2); Albumin Level 4.4 gm/dl (3.4-5.0); BUN Creatinine Ratio 11.1 (10-20); Bilirubin,Total 0.3 mg/dl (0.2-1.0); Calcium 8.9 mg/dl (8.6-10.3); Creatinine Clr Calc Pharmacy 68.7 ml/min; Globulin 2.3 gm/dl (2.5-4.0); Potassium 4.5 mmol/L (3.5-5.1); Total Protein 6.7 gm/dl (6.0-8.3)
[2024-05-11] MEDS: UMECLIDINIUM/VILANTEROL 62.5/25MCG 7 PUFFS/INHALER INH SCH (07:49)
[2024-05-11] MEDS: DIVALPROEX EXTENDED RELEASE 500 MG TAB PO SCH (07:49)
[2024-05-11] MEDS: FLUTICASONE FUROATE 200MCG 14 PUFFS/INHALER INH SCH (07:50)
[2024-05-11 08:02] VITALS: TEMP 97.9
[2024-05-11 08:03] VITALS: BP 138/90; PULSE 80; RESP 15; O2SAT 98
--- NOTE | 2024-05-11 10:26 | Hospitalist Progress Note ---
Date of Service May 11, 2024 Assessment & Plan (1) S/P TURP: (2) Prediabetes: (3) Asthma-COPD overlap syndrome: (4) Hx of migraines: Plan Jarvis is a pleasant 53-year-old male who underwent a TURP with Dr. Alvarez on 05/10/2024. Hospitalist service consulted for medical management (COPD, diabetes, and migraines). #S/P TURP Perioperative antibiotics, pain control, fluids, and DVT PPx per primary team Continue tamsulosin HS, Pyridium, oxybutynin Continue Guerrier catheter per urology Mild leukocytosis of 14.43, afebrile - likely reactionary to surgical procedure, no signs of infectious etiology #Prediabetes Last A1c at 5.8% on 04/06/2024 Hold metformin, resume on discharge SSI while inpatient with target BSG range 110-180mg/dL, CF 50, no carb ratio #AsthmaCOPD overlap syndrome No respiratory complaints, stable on room air Continue home inhalers PRN #Migraines Currently migraine free Rizatriptan PRN, Rimegepant (Nurtec) daily PRN #Schizoaffective d/o Continue divalproex 500 mg QAM, 1000 mg QPM VTE PPx: SCD/teds Disposition: Medically stable for discharge from hospital medicine's perspective Admission and Anticipated Discharge Date Admission Date: May 10, 2024 Supervising Physician Co-Signing Physician Notes PA Supervision Note: I did not personally see or examine the patient today, but I verified all long points of MARILIN Chin's assessment and plan with the following exceptions/additions: Ur cx with Strep mitis-treated with bactrim prior to surgery Subjective Patient seen and evaluated at bedside. He reports having bladder spasms currently that are uncomfortable; urology just ordered Pyridium and oxybutynin for him. He has passed gas since surgery, no BM. He denies fever/chills, headache, chest pain, shortness of breath, nausea, abdominal pain. He reports the plan is for him to be discharged home today. No additional complaints or concerns at this time. Physical Exam Physical Exam: General: No acute distress, nondiaphoretic, well-developed, well-nourished. Cardiac: Regular rate and rhythm without murmurs gallops or rubs. Pulm: Clear to auscultation bilaterally without wheezes, rales or rhonchi. Normal respiratory effort. 98% on room air. Abdominal: Soft, nontender, distended secondary to body habitus. Bowel sounds present. : Guerrier catheter draining clear yellow urine. Neuro: A&O x3. No focal neurological deficits. Results & Data Results & Data Vital Signs (Past 12 Hours) Vital Signs Temp Pulse Resp BP Pulse Ox O2 Del Method 05/11/24 08:02 97.9 F 80 15 138/90 98 Room Air Laboratory Results Reviewed CBC Reviewed BMP PG Care Time/CCT Total # of Minutes Spent Total Time Spent with Patient: Total time spent is greater than 50% in coordination of care (as documented) at patient's floor/unit and/or counseling patient: Coding Level of Care Code 18213 SUB INP/OBS CARE 2/35MIN Diagnoses S/P TURP Z90.79 Prediabetes R73.03 Asthma-COPD overlap syndrome J44.89 Hx of migraines Z86.69
--- NOTE | 2024-05-11 11:52 | Urology Progress Note ---
Date of Service May 11, 2024 Assessment & Plan (1) BPH w urinary obs/LUTS: (2) S/P TURP: Plan: - Pt POD#1 s/p TURP with Dr. Nation - Doing well, progressing as expected - Afebrile, hemodynamically stable Lab work reviewed - creatinine 1.35, WBC 14.43, Hgb 14.0 - 3 way Guerrier catheter intact, patent and draining clear yellow urine with CBI on slow - CBI clamped during exam in a.m. - Upon reassessment, urine remains clear after clamp trial - Maintain Guerrire catheter upon discharge - Recommend Pyridium and oxybutynin for bladder spasms - Discussed with hospital medicine and he is ready for discharge from medical standpoint - Plan for discharge today, orders placed - Expected clinical course reviewed, all questions answered - Will arrange outpatient follow-up with our service for voiding trial Admission and Anticipated Discharge Date Admission Date: May 10, 2024 Subjective Patient seen and examined at bedside this morning. He is resting in bed. No acute issues overnight, though reports poor sleep. Occasional bladder/pelvic pain. No fever or chills. He is passing gas. Guerrier patent and draining clear yellow with CBI on slow. CBI clamped during exam. Review of Systems Constitutional: as per Subjective / HPI Genitourinary: + as per Subjective / HPI Physical Exam Constitutional: well developed and well nourished; no acute distress Respiratory: normal respiratory effort; no respiratory distress and no labored breathing Gastrointestinal (Abdomen): Inspection/Auscultation: abdomen normal to inspection Musculoskeletal: Head/Neck/Chest: normocephalic Neurologic: moves all extremities and awake Psychiatric: Orientation: alert and oriented x 3 Genitourinary: Guerrier patent and draining clear urine with CBI on slow. CBI clamped on exam. Results & Data Vital Signs (Past 12 Hours) Vital Signs Temp Pulse Resp BP Pulse Ox O2 Del Method 05/11/24 08:02 36.6 C 80 15 138/90 98 Room Air PG Care Time/CCT Total # of Minutes Spent Total Time Spent with Patient: Total time spent is greater than 50% in coordination of care (as documented) at patient's floor/unit and/or counseling patient: Coding Level of Care Code None Diagnoses BPH w urinary obs/LUTS N40.1; N13.8 S/P TURP Z90.79
[2024-05-11] MEDS: oxyBUTYnin chloride 5 MG TAB PO SCH (12:18)
--- NOTE | 2024-05-11 13:34 | Discharge Summary ---
Date of Service May 11, 2024 Admission HPI Per Admitting Provider Patient with BPH with obstruction here for transurethral resection of prostate. Principal Diagnosis 25 Discharge Exam Constitutional well developed and well nourished; no acute distress Respiratory normal respiratory effort; no respiratory distress and no labored breathing Gastrointestinal (Abdomen) Inspection/Auscultation: abdomen normal to inspection Musculoskeletal Head/Neck/Chest: normocephalic Neurologic moves all extremities and awake Psychiatric Orientation: alert and oriented x 3 Genitourinary Guerrier draining clear urine Discharge Data Allergies Allergy/AdvReac Type Severity Reaction Status Date / Time peanut Allergy Intermediate Rash Verified 05/03/24 10:42 lamotrigine Allergy Mild Rash Verified 05/03/24 10:42 pineapple Allergy Unknown Unknown Verified 05/03/24 10:42 oxcarbazepine AdvReac Severe Hyponatremi Verified 05/03/24 10:42 a tramadol AdvReac Mild NAUSEA/VOMI Verified 05/03/24 10:42 TING varenicline AdvReac Unknown Unknown Verified 05/03/24 10:42 Consultations 05/10/24 06:44 Consult Hospitalist Routine Procedures Performed Operation Date: 05/10/24 07:15 Actual Procedures p TURP (Transurethral Resection of the Prostate)(Not Applicable) - Dg Alvarez, DO Hospital Course (1) BPH w urinary obs/LUTS: (2) S/P TURP: - Pt POD#1 s/p TURP with Dr. Nation - Doing well, progressing as expected - Afebrile, hemodynamically stable Lab work reviewed - creatinine 1.35, WBC 14.43, Hgb 14.0 - 3 way Guerrier catheter intact, patent and draining clear yellow urine with CBI on slow - CBI clamped during exam in a.m. - Upon reassessment, urine remains clear after clamp trial - Maintain Guerrier catheter upon discharge - Recommend Pyridium and oxybutynin for bladder spasms - Discussed with hospital medicine and he is ready for discharge from medical standpoint - Plan for discharge today, orders placed - Expected clinical course reviewed, all questions answered - Will arrange outpatient follow-up with our service for voiding trial Total Time Total Time Spent Total Time Spent (In Minutes): 20 Discharge Plan Discharge Items Patient Disposition: Home - Self-Care Reason For Visit: BPH with Urinary Obstruction/Lower Urinary Tract S Discharge Diagnosis: BPH with urinary obstruction/lower urinary tract symptoms Activity: Per Instructions section Lifting: No more than 25 pounds Sexual Activity: Wait until after follow-up appointment Exercise/Sports: Wait until after follow-up appointment Non-emergency contact: Surgeon and Urologist Call non-emergency contact if: your pain is not controlled, you have a fever and your temperature is above 101 Follow-up/Referrals: Dg Alvarez DO [Physician] - 05/16/24 10:00 am Arik Ferraro DO [Primary Care Provider] - 05/18/24 11:00 am Diet: Regular Addtl Attending Provider Instructions: Please take all medications as prescribed and keep all follow-ups as scheduled. Please call our office at [phone] with any questions, concerns or need to reschedule appointments for any reason. We are happy to assist you. Tips for your recovery at home: Dont be alarmed by brownish or reddish blood or clots in your urine. This is a result of the procedure. This may occur off and on for weeks to months after the procedure but should continue to improve. Drink plenty of fluids during the day (enough to keep your urine very light colored). This will help keep a healthy flow of urine. Do not lift >25 lbs until your followup Avoid constipation. Please use a stool softener (Colace) for the first two weeks after your procedure Be sure to finish the antibiotics as prescribed. If you go home with a catheter, please wash tubing where it enters your body twice daily with mild soap (Dove or Dial). Once your catheter is removed, expect some blood in your urine and some burning when you urinate. You should have an appointment to have this removed, if you do not please call our office to arrange. Pending Studies at Discharge: Yes Stand-Alone Forms: My [employer], Smoking Cessation Medications and DC Order Prescriptions: New phenazopyridine [Pyridium] 200 mg tablet 200 mg PO Q8H PRN (Reason: pain) Qty: 10 0RF cephalexin 500 mg capsule 500 mg PO BID 7 Days Qty: 14 0RF oxybutynin chloride 5 mg tablet 5 mg PO BID PRN (Reason: bladder spasms) Qty: 14 0RF Continued metformin 500 mg tablet 500 mg PO BID Qty: 180 2RF Trelegy Ellipta 200-62.5-25 mcg blister with device 1 inh inhalation DAILY Qty: 60 5RF Rx Instructions: WITH A RINSE OF MOUTH AFTERWARDS. Emgality Pen 120 mg/mL pen injector 120 mg subcut MONTHLY 30 Days Qty: 1 6RF Nurtec ODT 75 mg tablet,disintegrating 75 mg PO DAILY PRN (Reason: migraine headache) Qty: 8 5RF Rx Instructions: 75mg po once a day prn acute migraine rizatriptan 10 mg tablet 10 mg PO .COMPLEX MDD 20mg PRN (Reason: migraine headache) Qty: 9 5RF Rx Instructions: 10 mg orally prn migraine, repeat after two hours prn simvastatin 10 mg tablet 10 mg PO QPM Combivent Respimat 20-100 mcg/actuation mist 1 puff INH Q6H PRN (Reason: sob) Qty: 4 2RF divalproex 500 mg tablet extended release 24 hr 500 - 1,000 mg PO UD Rx Instructions: 500 mg in am 1,000 mg in pm tamsulosin 0.4 mg capsule 0.4 mg PO QPM pantoprazole 40 mg tablet,delayed release (DR/EC) 40 mg PO QPM lisinopril 10 mg tablet 10 mg PO QAM N Acetylcystine 1 unit 600 mg PO BID Discharge Orders: Discharge Order (Routine); Ordered 05/11/24 Ordered By: Claudine Cartwright Admission Data Admit Date/Time: 05/10/24 06:41 Attending Provider: Dg Alvarez Admit Provider: Dg Alvarez Primary Care Provider: Arik Ferraro Other Providers: Latia Leija Other Interventions: Discharge Summary Assessment (RN) Last Done: 05/11/24 12:16 Coding Level of Care Code 65077 IN/OBS DISCH 30 MIN/LESS Diagnoses BPH w urinary obs/LUTS N40.1; N13.8 S/P TURP Z90.79
== END 2024-05-11 13:51 | disposition home or self-care (01) ==
LOC: 3W 05:43 → ASU 05:43

== ENCOUNTER 2024-05-24 16:00 | Inpatient (IN) ==
--- NOTE | 2024-05-24 16:55 | Emergency Department Note ---
Impression & Plan Pneumonia, Sepsis, Hyponatremia, Hypoxia, Shortness of breath, Cough, Fever, Leukocytosis, Elevated serum creatinine ED Provider Note CHIEF COMPLAINT: Cough, congestion, laryngitis HISTORY OF PRESENTING ILLNESS: The patient is a 54-year-old male with a PMH COPD, schizoaffective disorder, pulmonary nodule, anxiety, persistent asthma, prediabetes, CKD and tobacco use presents to the emergency department speaking softly and reporting throat pain. Reports illness for the last 4 to 5 days. Patient confirms that he has a sore throat, is experiencing shortness of breath, is coughing vigorously on exam, and is having fevers. Denies using his COPD inhalers today. Denies ever requiring oxygen for COPD management. Confirms history of tonsillectomy including adenoid removal. Denies chest pain, abdominal pain, nausea, vomiting, constipation, diarrhea, urinary symptoms. REVIEW OF SYSTEMS: See HPI for pertinent positives and pertinent negatives. ALLERGIES: Tramadol, oxcarbazepine, varenicline, lamotrigine, pineapple, peanut MEDICATIONS: See below PAST MEDICAL HISTORY: See below PHYSICAL EXAM: VITALS: Vitals are noted on the nurse's note and reviewed by myself. Pulse slightly elevated 107, RR 26, febrile. Patient is stable. GENERAL: 54-year-old male, ill-appearing, coughing vigorously, in no acute distress, nondiaphoretic, well-developed well-nourished. SKIN: Capillary refill less than 2 seconds. HEENT: Normocephalic. PERRLA. EOMI. Nares patent. Mucous membranes moist. Neck is supple without nuchal rigidity. TM visualized bilaterally without abnormality. Throat without tonsils. Uvula is midline. No cervical lymphadenopathy. HEART: Regular rate and rhythm without murmurs gallops or rubs. LUNGS: Diffuse diminished breath sounds on exam. Patient is coughing vigorously and unable to take a deep breath. Expiratory wheeze appreciated during coughing fits bilaterally. No rales or rhonchi. No retractions or accessory muscle use. ABDOMEN: Soft, nontender, without masses or organomegaly. No guarding or rebound tenderness. NEURO: Patient was alert and oriented. No focal neurological deficits. DIFFERENTIAL DIAGNOSIS: Viral infection, influenza, COVID-19, bacterial infection, allergic rhinitis, COPD exacerbation, laryngitis, sinusitis, pneumonia, pneumothorax, bronchitis, GERD, cardiac cause, among others. ED COURSE AND MEDICAL DECISION MAKING: HISTORY FROM INDEPENDENT HISTORIAN: The patient himself and his . MEDICATIONS GIVEN: Hycodan 5 mL PO, 3 mL DuoNeb breathing treatment, Tylenol 1000 mg IV, 1 L normal saline, Rocephin 2 g IV, Zithromax 500 mg IV, 1 L normal saline MONITOR: Continuous awake overnight monitor: Order was placed for continuous awake overnight monitor. INTERPRETATION OF LABS: I interpreted the labs with full lab results as below in the lab section of this note. Pertinent lab results discussed in the MDM section below. INTERPRETATION OF IMAGING: Imaging studies were interpreted by myself and read by radiology as per the imaging section of this note. Chest x-ray - There is a 5 by 4 x 5 x 5 cm groundglass infiltrate in the left lower lung. Pneumonia considered most likely including viral etiology. ESCALATION OF CARE CONSIDERED: Escalation of care was considered due to the patient's presentation as well as history of COPD. On exam the patient is ill- appearing and is coughing vigorously. Diffuse diminished breath sounds and expiratory wheeze. Patient is febrile, tachycardic, and hypoxic. Patient was given a breathing treatment for symptom management and placed on the monitor. Chest x-ray shows pneumonia, blood work shows significant hyponatremia, patient remains hypoxic. Patient was admitted to medicine. CONSULTATIONS: On-call [facility] hospitalist - Presented the patient to the hospitalist. Informed them that he is hypoxic on 2 L nasal cannula, left lower lobe pneumonia, hyponatremia, and COPD exacerbation meeting sepsis criteria. Patient was started on IV antibiotics, was given a breathing treatment, and was provided adequate fluid resuscitation meeting sepsis criteria. They confirmed that they would evaluate the patient and admit him to medicine. The remainder of his care was determined by the hospitalist team. MDM SUMMARY: The patient is a 54-year-old male who presents to the emergency department due to difficulty speaking, sore throat, fevers, shortness of breath, and illness for 5 days. History of COPD. Denies chest pain, abdominal pain, nausea, vomiting, constipation, diarrhea, urinary symptoms. Upon presentation the patient is mildly tachycardic at a rate of 107, respiratory rate 26, febrile. The patient is ill-appearing and coughing vigorously on exam. Patient is tolerating his own secretions. States that he has been able to eat and drink. Neck is supple without nodes or rigidity. Throat without tonsils. Uvula is midline. Patient is 91% on room air and confirms he is feeling short of breath. Chest auscultation reveals regular rate and rhythm without murmurs. Diffuse diminished breath sounds heard bilaterally. Patient is coughing vigorously and unable to take a deep breath. Expiratory wheeze appreciated during coughing fits. Patient is hypoxic requiring 2 L nasal cannula. The abdomen is soft and nontender. Upon triage blood work, upper respiratory swab, strep culture, and chest x-ray were obtained. After my evaluation hide getting, a DuoNeb breathing treatment, Tylenol, and 1 L normal saline were provided. Patient was placed in a room, placed on continuous awake overnight monitor, and given oxygen after the breathing treatment. Leukocytosis WBC elevated 13.92. RBC 4.56. Hemoglobin hematocrit 13.7/38.8. Sodium significantly lowered 126. Chloride 90. BUN 18. Creatinine 1.52. AST 50. ALT 67. Patient's upper respiratory BioFire, strep culture, and mono test results negative. Chest x-ray shows left lower lung pneumonia that is groundglass appearing likely viral etiology. Due to pneumonia, patient being hypoxic, and febrile patient meets sepsis criteria. 2 L normal saline was provided based on sepsis fluid volume calculator. The patient was immediately admitted to medicine and IV antibiotics started after discussing this case with my attending Dr. Qiu. IV Rocephin and Zithromax given. Consultation with on- call [facility] hospitalist provider can be seen in detail above. They confirmed that they would admit him to medicine and to evaluate him. The remainder of his care was determined by the hospitalist team. The patient and his agreed to the outlined treatment plan and all laboratory and imaging results were thoroughly reviewed with the patient. Patient and agreed to the outlined treatment plan. All their questions were answered. The patient was discharged in stable condition. DIAGNOSIS: Pneumonia, sepsis, hyponatremia, hypoxia, shortness of breath, cough, fever, leukocytosis, elevated serum creatinine The chart was completed utilizing [employer] voice recognition software. Grammatical errors, random word insertions, pronoun errors, and incomplete sentences are an occasional consequence of this system due to software limitations, ambient noise, and hardware issues. Any formal questions or concerns about the content, text, or information contained within the body of this dictation should be directly addressed to the provider for clarification. Past Med/Surg History Problem List (Updated 05/24/24 @ 23:57 by Jemima Mclaughlin PA-C) Elevated serum creatinine (Acute) Leukocytosis (Acute) Fever (Acute) Cough (Acute) Shortness of breath (Acute) Hypoxia (Acute) Hyponatremia (Acute) Sepsis (Acute) Pneumonia (Acute) Pneumonia Sepsis S/P TURP Hx of migraines Seizure disorder Right hip pain Left wrist pain BPH w urinary obs/LUTS (Chronic) GERD (gastroesophageal reflux disease) CKD (chronic kidney disease) stage 2, GFR 60-89 ml/min Prediabetes Tobacco abuse Asthma-COPD overlap syndrome Microalbuminuria Obesity Vitamin D deficiency Mild neurocognitive disorder Pulmonary nodule Atypical chest pain Tremor Schizoaffective disorder (Chronic) Sleep disorder Migraine with visual aura Meniere's disease Anxiety Severe persistent asthma Seizure-like activity Medical History [place] (hard of hearing) pt cannot hear without hearing aides History of anesthesia reaction "i get a little goofy from it" Mild neurocognitive disorder Tremor "all over" Anxiety Schizoaffective disorder CKD (chronic kidney disease) stage 2, GFR 60-89 ml/min follows with dr. watson, neph at [facility] Prediabetes GERD (gastroesophageal reflux disease) Asthma-COPD overlap syndrome daily inhaler and prn (last used yesterday) BPH w urinary obs/LUTS History of Meniere's disease History of deviated nasal septum surgery to to correct Syncope and collapse hx Drug-induced parkinsonism History of seizure reports had 1 seizure due to low sodium level- approx 2021- none since History of tobacco abuse Acute hyponatremia 1500 ml fluid restriction due to sodium Major depressive disorder Hypertension Essential hypertension Dyslipidemia Surgical History Hx of colonoscopy History of esophagogastroduodenoscopy (EGD) Hx of wisdom tooth extraction History of ear surgery right ear, had nerve clipped to help with meniere's disease History of nasal surgery (1988) due to deviated nasal septum S/P tonsillectomy Family History Father Aortic stenosis Grandfather (Maternal) Prostate cancer Grandfather (Paternal) Prostate cancer Sister Thyroid cancer Other Colonic polyp Colorectal cancer Denies family history of Ovarian cancer Myocardial infarction Breast cancer Social History Smoking Status: Former smoker Tobacco Type: Cigarettes Age Started Using Tobacco: 18; packs per day: 0.5; Cigarettes Per Day: 1/2 ppd; Second Hand Exposure: No; Do You Dip or Chew Tobacco: No; Hx Alcohol Use: Yes Hx Substance Use: No Preferred Language: Wolof Communication Ability: Effective Visual Impairment: No Limitations Hearing Ability: Use of Hearing Aid 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 Beliefs That Will Affect Care: None Current Living Situation: Spouse current occupational status: employed current occupation: [employer] Feels Safe at Home: Yes Childhood Exposure to Second-Hand Smoke: Yes Diet: regular Diet Comment: regular caffeine: Yes during the past year weight has: remained stable Dental Care, Regularly: No Physical Activity Frequency: Daily Seatbelt Use: always Gender Identity: Male Assistive Devices: None Allergies Allergies Allergy/AdvReac Type Severity Reaction Status Date / Time peanut Allergy Intermediate Rash Verified 05/03/24 10:42 lamotrigine Allergy Mild Rash Verified 05/03/24 10:42 pineapple Allergy Unknown Unknown Verified 05/03/24 10:42 oxcarbazepine AdvReac Severe Hyponatremi Verified 05/03/24 10:42 a tramadol AdvReac Mild NAUSEA/VOMI Verified 05/03/24 10:42 TING varenicline AdvReac Unknown Unknown Verified 05/03/24 10:42 Home Meds Home Medications Medication Instructions Recorded Confirmed simvastatin 10 mg tablet 10 mg PO QPM 07/23/19 05/24/24 divalproex 500 mg tablet,extended 500 - 1,000 mg PO UD 04/24/24 05/24/24 release 24 hr N Acetylcystine 600 mg PO BID 05/03/24 05/24/24 lisinopril 10 mg tablet 10 mg PO QAM 05/03/24 05/24/24 pantoprazole 40 mg tablet,delayed 40 mg PO QPM 05/03/24 05/24/24 release tamsulosin 0.4 mg capsule 0.4 mg PO QPM 05/03/24 05/24/24 Previous Rx's Medication Instructions Recorded galcanezumab-gnlm 120 mg/mL 120 mg subcut MONTHLY 30 days #1 mL 11/28/23 subcutaneous pen injector (Emgality Pen) rimegepant 75 mg disintegrating 75 mg PO DAILY PRN migraine 11/28/23 tablet (Nurtec ODT) headache #8 tabs ipratropium 20 mcg-albuterol 100 1 puff inhalation Q6H PRN sob #4 12/19/23 mcg/actuation mist for inhalation grams (Combivent Respimat) metformin 500 mg tablet 500 mg PO BID #180 tabs 12/22/23 fluticasone fur. 200 mcg-umeclid 1 inh inhalation DAILY #60 ea 04/16/24 62.5 mcg-vilant 25 mcg inhalat.powder (Trelegy Ellipta) oxybutynin chloride 5 mg tablet 5 mg PO BID PRN bladder spasms #14 05/11/24 tabs phenazopyridine 200 mg tablet 200 mg PO Q8H PRN pain #10 tabs 05/11/24 (Pyridium) rizatriptan 10 mg tablet 10 mg PO .COMPLEX PRN migraine 05/23/24 headache #9 tabs Results & Data (ED) Vital Signs Vital Signs - 24 hr 05/24/24 16:16 05/24/24 18:00 05/24/24 18:00 Temperature 37.9 C H Temperature Source Oral Pulse Rate 102 H 104 H Pulse Rate [Left Finger] 107 H Respiratory Rate 20 26 H Respiratory Effort / Characteristics Non-Labored Spontaneous Respiratory Depth Normal Blood Pressure 148/79 H Blood Pressure [Left Arm] 156/106 H Blood Pressure Mean 102 Blood Pressure Mean [Left Arm] 122 Blood Pressure Position [Left Arm] Sitting Pulse Oximetry 91 89 L Oxygen Delivery Method Room Air Room Air Oxygen Flow Rate Sepsis Recent Fever Within 48 Hours Yes Sepsis New/Unexplained Change in Mental Status N/A Sepsis Action Taken by Nursing No Action Required 05/24/24 18:58 05/24/24 19:21 Temperature Temperature Source Pulse Rate Pulse Rate [Left Finger] 96 H Respiratory Rate 18 Respiratory Effort / Characteristics Respiratory Depth Blood Pressure Blood Pressure [Left Arm] 131/78 Blood Pressure Mean Blood Pressure Mean [Left Arm] 95 Blood Pressure Position [Left Arm] Pulse Oximetry 94 94 Oxygen Delivery Method Nasal Cannula Nasal Cannula Oxygen Flow Rate 2 Sepsis Recent Fever Within 48 Hours Sepsis New/Unexplained Change in Mental Status Sepsis Action Taken by Nursing Laboratory Data 05/24/24 16:35 05/24/24 16:35 Lab Results 05/24/24 05/24/24 Range/Units 16:35 16:41 WBC 13.92 H (4.8-10.8) K/ul RBC 4.56 L (4.70-6.10) M/uL Hgb 13.7 L (14.0-18.0) g/dl Hct 38.8 L (42.0-52.0) % MCV 85.1 (80.0-100.0) fL MCH 30.0 (25.0-34.0) pg MCHC 35.3 (32.0-36.0) g/dL RDW Std Deviation 39.1 (36.4-46.3) fL RDW Coeff of Ian 12.7 (11.5-14.5) % Plt Count 274 (130-400) K/uL MPV 8.6 L (9.4-12.4) fL Immature Gran % (Auto) 0.9 % Neut % (Auto) 81.2 % Lymph % (Auto) 7.2 % Bland % (Auto) 10.4 % Eos % (Auto) 0.0 % Baso % (Auto) 0.3 % Neut # (Auto) 11.30 H (1.40-6.50) K/uL Lymph # (Auto) 1.00 L (1.20-3.40) K/uL Bland # (Auto) 1.45 H (0.11-0.59) K/uL Eos # (Auto) 0.00 (0.00-0.50) K/uL Baso # (Auto) 0.04 (0.00-0.20) K/uL Immature Gran # (Auto) 0.13 (0.01-0.20) K/uL Sodium 126 L (136-145) mmol/L Potassium 4.3 (3.5-5.1) mmol/L Chloride 90 L (98-107) mmol/L Carbon Dioxide 27 (21-32) mmol/L Anion Gap 9 (3-11) BUN 18 (6-23) mg/dl Creatinine 1.52 H (0.6-1.4) mg/dl Est Cr Clr Drug Dosing 60.3 ml/min eGFR 54.12 BUN/Creatinine Ratio 11.8 (10-20) Glucose 117 H (70-99(Fasting)) mg/dl Osmolality 267 L (280-300) mOsm/kg Calcium 9.7 (8.6-10.3) mg/dl Phosphorus 2.3 L (2.5-4.9) mg/dl Magnesium 2.0 (1.7-2.4) mg/dl Total Bilirubin 0.9 (0.2-1.0) mg/dl AST 50 H (13-39) U/L ALT 67 H (7-52) U/L Alkaline Phosphatase 90 (34-104) U/L Total Protein 8.2 (6.0-8.3) gm/dl Albumin 4.5 (3.4-5.0) gm/dl Globulin 3.7 (2.5-4.0) gm/dl Albumin/Globulin Ratio 1.2 (0.9-2) Adenovirus (PCR) Not Detected (NotDetected) B. pertussis DNA (PCR) Not Detected (NotDetected) B.parapertussis DNA PCR Not Detected (NotDetected) C. pneumoniae DNA (PCR) Not Detected (NotDetected) Coronavirus OC43 (PCR) Not Detected (NotDetected) Coronavirus HKU1 (PCR) Not Detected (NotDetected) Coronavirus 229E (PCR) Not Detected (NotDetected) SARS-CoV-2 (PCR) Not Detected (NotDetected) Coronavirus NL63 (PCR) Not Detected (NotDetected) Monoscreen Negative (Negative) Human Metapneumovir PCR Not Detected (NotDetected) Influenza Type A (PCR) Not Detected (NotDetected) Influenza Type B (PCR) Not Detected (NotDetected) M. pneumoniae (PCR) Not Detected (NotDetected) Parainfluenza 1 (PCR) Not Detected (NotDetected) Parainfluenza 2 (PCR) Not Detected (NotDetected) Parainfluenza 3 (PCR) Not Detected (NotDetected) Parainfluenza 4 (PCR) Not Detected (NotDetected) RSV (PCR) Not Detected (NotDetected) Entero/Rhino (PCR) Not Detected (NotDetected) Group A Strep (PCR) NOT DETECTED (NotDetected) Administered Medications Discontinued Medications Albuterol (Albut/Ipratrop 3mg/0.5mg Neb 3 Ml Vial) 3 ml NEB NOW STA; Protocol Stop: 05/24/24 17:35 Last Admin: 05/24/24 17:59 Dose: 3 ml Documented By: GEORGIANA Hydrocodone Bit/Homatropine Methylb (Hydrocodone/Homatropine Syrup 5mg/1.5mg 5ml Udp) 5 ml PO NOW STA Stop: 05/24/24 17:35 Last Admin: 05/24/24 18:06 Dose: 5 ml Documented By: GEORGIANA Sodium Chloride (Nss) 1,000 mls @ 999 mls/hr IV .Q1H1M ONE Stop: 05/24/24 18:34 Last Infusion: 05/24/24 20:04 Dose: Infused Documented By: Admin: 05/24/24 17:59 Dose: 999 mls/hr Documented By: GEORGIANA Acetaminophen (Ofirmev) 1,000 mg in 100 mls @ 400 mls/hr IV NOW STA Stop: 05/24/24 17:48 Last Infusion: 05/24/24 18:33 Dose: Infused Documented By: Admin: 05/24/24 18:00 Dose: 400 mls/hr Documented By: GEORGIANA Azithromycin (Zithromax) 500 mg in 255 mls @ 127.5 mls/hr IV NOW ONE Stop: 05/24/24 19:53 Last Infusion: 05/24/24 21:02 Dose: Infused Documented By: Admin: 05/24/24 18:34 Dose: 127.5 mls/hr Documented By: Sodium Chloride (Nss) 1,000 mls @ 999 mls/hr IV .Q1H1M ONE Stop: 05/24/24 19:35 Last Infusion: 05/24/24 21:38 Dose: Infused Documented By: Admin: 05/24/24 20:06 Dose: 999 mls/hr Documented By: KAILEE Ceftriaxone Sodium (Rocephin) 2,000 mg in 50 mls @ 100 mls/hr IV NOW STA Stop: 05/24/24 19:27 Last Infusion: 05/24/24 21:38 Dose: Infused Documented By: Admin: 05/24/24 21:10 Dose: 100 mls/hr Documented By: KAILEE Imaging Data Radiologist's Impression: Chest X-Ray 05/24/24 16:21 EXAM: Radiograph of the Chest 1 View INDICATION: Cough TECHNIQUE: Frontal view of the chest. COMPARISON: 12/28/2023 FINDINGS: Lungs and pleural spaces: There is an approximate 5.4 x 5.5 cm groundglass infiltrate in the left lower lung. No pleural effusion or pneumothorax. Heart: Shape and configuration within normal limits allowing for technique. Mediastinum: Normal contour. Bones/joints: No fracture, erosion or dislocation. Soft tissues: No abnormality noted. No radiopaque foreign body noted. Upper abdomen: No abnormality noted. IMPRESSION: There is an approximate 5.4 x 5.5 cm groundglass infiltrate in the left lower lung. Pneumonia considered most likely including viral etiologies. ACT 112: N/A Electronically signed by Kacey Gregory 05-24-2024 6:13 PM Discharge Plan Visit Data Chief Complaint: Illness Stated Complaint: COUGH,CONGESTION,LARYNGITIS ED Provider: Armond Qiu ED Midlevel Provider: Jemima Mclaughlin Discharge Problem: Pneumonia, Sepsis, Hyponatremia, Hypoxia, Shortness of breath, Cough, Fever, Leukocytosis, Elevated serum creatinine Patient Disposition: Admitted As Inpatient Discharge Instructions Interventions: ED Discharge Assessment Last Done: 05/24/24 21:40 Discharge Problem: Pneumonia Qualifiers: Pneumonia type: due to unspecified organism Laterality: left Lung location: l ower lobe of lung Qualified Code(s): J18.9 - Pneumonia, unspecified organism Sepsis Qualifiers: Sepsis type: sepsis due to unspecified organism Sepsis acute organ dysfunction status: with acute organ dysfunction Severe sepsis acute organ dysfunction type: acute respiratory failure Acute respiratory failure type: with hypoxia Severe sepsis shock status: without septic shock Qualified Code(s): A41.9 - Sepsis, unspecified organism; R65.20 - Severe sepsis without septic shock; J96.01 - Acute respiratory failure with hypoxia Cough Qualifiers: Cough type: acute Qualified Code(s): R05.1 - Acute cough Fever Qualifiers: Fever type: unspecified Qualified Code(s): R50.9 - Fever, unspecified Leukocytosis Qualifiers: Leukocytosis type: unspecified Qualified Code(s): D72.829 - Elevated white blood cell count, unspecified
[2024-05-24 16:56] LABS: Basophils # (auto) 0.04 K/uL (0.00-0.20); Basophils % (auto) 0.3 %; Hematocrit (blood only) 38.8 % (42.0-52.0); Hemoglobin 13.7 g/dl (14.0-18.0); Immature Granulocytes # (auto) 0.13 K/uL (0.01-0.20); Immature Granulocytes % (auto) 0.9 %; Lymphocytes % (auto) 7.2 %; Mean Corpuscular Hgb Conc 35.3 g/dL (32.0-36.0); Mean Corpuscular Volume 85.1 fL (80.0-100.0); Mean Platelet Volume 8.6 fL (9.4-12.4); Monocytes # (auto) 1.45 K/uL (0.11-0.59); Monocytes % (auto) 10.4 %; Neutrophils % (auto) 81.2 %; Platelet Count 274 K/uL (130-400); RDW Coefficient of Variation 12.7 % (11.5-14.5); RDW Standard Deviation 39.1 fL (36.4-46.3); Red Blood Count 4.56 M/uL (4.70-6.10); White Blood Count 13.92 K/ul (4.8-10.8)
[2024-05-24 17:09] LABS: Albumin Globulin Ratio 1.2 (0.9-2); Albumin Level 4.5 gm/dl (3.4-5.0); BUN Creatinine Ratio 11.8 (10-20); Bilirubin,Total 0.9 mg/dl (0.2-1.0); Calcium 9.7 mg/dl (8.6-10.3); Creatinine Clr Calc Pharmacy 60.3 ml/min; Globulin 3.7 gm/dl (2.5-4.0); Potassium 4.3 mmol/L (3.5-5.1); Total Protein 8.2 gm/dl (6.0-8.3)
[2024-05-24 17:38] LABS: Adenovirus PCR Not Detected (NotDetected); Bordetella parapertussis PCR Not Detected (NotDetected); Bordetella pertussis PCR Not Detected (NotDetected); Chlamydia pneumoniae PCR Not Detected (NotDetected); Coronavirus 229E PCR Not Detected (NotDetected); Coronavirus CoV-2 (COVID19)PCR Not Detected (NotDetected); Coronavirus HKU1 PCR Not Detected (NotDetected); Coronavirus NL63 PCR Not Detected (NotDetected); Coronavirus OC43PCR Not Detected (NotDetected); Human Metapneumovirus PCR Not Detected (NotDetected); Influenza A PCR Not Detected (NotDetected); Influenza B PCR Not Detected (NotDetected); Mycoplasma pneumoniae PCR Not Detected (NotDetected); Parainfluenza Virus 1 PCR Not Detected (NotDetected); Parainfluenza Virus 2 PCR Not Detected (NotDetected); Parainfluenza Virus 3 PCR Not Detected (NotDetected); Parainfluenza Virus 4 PCR Not Detected (NotDetected); Respiratory Syncytial VirusPCR Not Detected (NotDetected); Rhinovirus/Enterovirus PCR Not Detected (NotDetected)
[2024-05-24] MEDS: SODIUM CHLORIDE 0.9% 1,000 ML IV ONE ×2 (17:59→20:06)
[2024-05-24] MEDS: ALBUT/IPRATROP 3MG/0.5MG NEB 3 ML VIAL NEB STA (17:59)
[2024-05-24] MEDS: ACETAMINOPHEN 1,000 MG/100 ML VIAL IV STA (18:00)
[2024-05-24] MEDS: HYDROcodone/HOMATROPINE SYRUP 5MG/1.5MG 5ML UDP PO STA (18:06)
--- NOTE | 2024-05-24 18:13 | XRay Report ---
EXAM: Radiograph of the Chest 1 View INDICATION: Cough TECHNIQUE: Frontal view of the chest. COMPARISON: 12/28/2023 FINDINGS: Lungs and pleural spaces: There is an approximate 5.4 x 5.5 cm groundglass infiltrate in the left lower lung. No pleural effusion or pneumothorax. Heart: Shape and configuration within normal limits allowing for technique. Mediastinum: Normal contour. Bones/joints: No fracture, erosion or dislocation. Soft tissues: No abnormality noted. No radiopaque foreign body noted. Upper abdomen: No abnormality noted. IMPRESSION: There is an approximate 5.4 x 5.5 cm groundglass infiltrate in the left lower lung. Pneumonia considered most likely including viral etiologies. ACT 112: N/A Electronically signed by Kacey Gregory 05-24-2024 6:13 PM
[2024-05-24] MEDS: AZITHROMYCIN 500 MG/255 ML BAG IV ONE (18:34)
--- NOTE | 2024-05-24 19:48 | History & Physical Report ---
Date of Service May 24, 2024 Assessment & Plan (1) Sepsis: (2) Pneumonia: (3) Hyponatremia: (4) Asthma-COPD overlap syndrome: (5) Seizure disorder: (6) Schizoaffective disorder: (7) GERD (gastroesophageal reflux disease): Plan 54-year-old male with history of asthma/COPD, hypertension, hyperlipidemia presenting with 4 to 5 days of cough, fever and not feeling well. Patient with sepsis present on admission(SIRS 3/4 with heart rate = 107, respiratory rate = 26 and WBC = 13.92) chest x-ray suggestive of left lower lobe pneumonia. #Sepsispresent on admission. Likely secondary to left lower lobe pneumonia. Patient has received adequate IV fluids (2 L normal saline in the ER). Blood pressure is stable. Admit to medical continue supplemental oxygen as needed LR at 100 mL/h x [address] chest given patient's history of smoking and nonspecific chest x-ray findings Continue ceftriaxone 2 g IV daily and azithromycin for management of community-acquired pneumonia Tylenol as needed Zofran as needed Mucinex 1200 mg p.o. twice daily #Pneumonia Azithromycin and ceftriaxone Check CT chest #Hyponatremia acute on chronic. Baseline sodium variable, last Na= 133 on 05/11/2024. Sodium = 126 today. Patient is asymptomatic. Likely secondary to underlying pulmonary condition Check urine and serum osmolality Check urine sodium Legionella urine antigen sent from the ER Repeat chemistry in the morning #Asthma/COPD overlap syndromepatient does endorse shortness of breath in setting of respiratory infection. Denies wheeze. No wheeze or rhonchi were appreciated on exam Combivent every 6 hours scheduled Albuterol nebs as needed Continue daily fluticasone umeclidinium or formulary equivalent Mucinex twice daily Incentive spirometry Supplemental oxygen as needed #Seizure disorder Continue home Depakote 500 mg p.o. every morning and 1 g p.o. every afternoon #Hypertension Continue home lisinopril 10 mg p.o. every morning #GERD Continue Protonix 40 mg p.o. every afternoon #Hyperlipidemia Continue simvastatin 10 mg p.o. every afternoon #BPH Continue Flomax 0.4 mg p.o. every afternoon FENLR at 100 mL/h x 2 L ProphylaxisLovenox History of Present Illness Chief Complaint: Fever, cough, shortness of breath Primary Care Provider: DO Jarvis Costello is a 54-year-old male with history of hypertension, hyperlipidemia, GERD presenting from home with 4 to 5 days of feeling ill. Patient reports cough, predominantly dry but occasionally productive for ryan sputum as well as sore throat and fever. He has had hoarseness over the last 3 days as well as progressive shortness of breath. He developed some nonbloody diarrhea today as well. Denies abdominal pain, nausea, vomiting, chest pain or tightness, edema, orthopnea, weight loss or night sweats. Former smoker - quit two weeks ago. In the ER patient with elevated temperature 37.9, elevated heart rate at 107 bpm, elevated respiratory rate at 26 breaths/min saturating 89% on room air which improved to 94% with 2 L nasal cannula. Patient does not use supplemental oxygen at home ER Course: Normal saline x 2 L Albuterol 3 mL neb Tylenol x 1 g IV Hydrocodone Azithromycin 500 mg IV Ceftriaxone 2 g Allergies Allergy/AdvReac Type Severity Reaction Status Date / Time peanut Allergy Intermediate Rash Verified 05/03/24 10:42 lamotrigine Allergy Mild Rash Verified 05/03/24 10:42 pineapple Allergy Unknown Unknown Verified 05/03/24 10:42 oxcarbazepine AdvReac Severe Hyponatremi Verified 05/03/24 10:42 a tramadol AdvReac Mild NAUSEA/VOMI Verified 05/03/24 10:42 TING varenicline AdvReac Unknown Unknown Verified 05/03/24 10:42 Home Medications Medication Instructions Recorded Confirmed Type simvastatin 10 mg tablet 10 mg PO QPM 07/23/19 05/24/24 History galcanezumab-gnlm 120 mg/mL 120 mg subcut MONTHLY 30 days #1 mL 11/28/23 05/24/24 Rx subcutaneous pen injector (Emgality Pen) rimegepant 75 mg disintegrating 75 mg PO DAILY PRN migraine 11/28/23 05/24/24 Rx tablet (Nurtec ODT) headache #8 tabs ipratropium 20 mcg-albuterol 100 1 puff inhalation Q6H PRN sob #4 12/19/23 05/24/24 Rx mcg/actuation mist for inhalation grams (Combivent Respimat) metformin 500 mg tablet 500 mg PO BID #180 tabs 12/22/23 05/24/24 Rx fluticasone fur. 200 mcg-umeclid 1 inh inhalation DAILY #60 ea 04/16/24 05/24/24 Rx 62.5 mcg-vilant 25 mcg inhalat.powder (Trelegy Ellipta) divalproex 500 mg tablet,extended 500 - 1,000 mg PO UD 04/24/24 05/24/24 History release 24 hr N Acetylcystine 600 mg PO BID 05/03/24 05/24/24 History lisinopril 10 mg tablet 10 mg PO QAM 05/03/24 05/24/24 History pantoprazole 40 mg tablet,delayed 40 mg PO QPM 05/03/24 05/24/24 History release tamsulosin 0.4 mg capsule 0.4 mg PO QPM 05/03/24 05/24/24 History oxybutynin chloride 5 mg tablet 5 mg PO BID PRN bladder spasms #14 05/11/24 05/24/24 Rx tabs phenazopyridine 200 mg tablet 200 mg PO Q8H PRN pain #10 tabs 05/11/24 05/24/24 Rx (Pyridium) rizatriptan 10 mg tablet 10 mg PO .COMPLEX PRN migraine 05/23/24 05/24/24 Rx headache #9 tabs Past Med/Surg History Problem List (Updated 05/24/24 @ 22:37 by Fartun Beal DO) Pneumonia Sepsis S/P TURP Hx of migraines Seizure disorder Right hip pain Left wrist pain BPH w urinary obs/LUTS (Chronic) GERD (gastroesophageal reflux disease) CKD (chronic kidney disease) stage 2, GFR 60-89 ml/min Prediabetes Tobacco abuse Asthma-COPD overlap syndrome Microalbuminuria Obesity Vitamin D deficiency Mild neurocognitive disorder Pulmonary nodule Atypical chest pain Tremor Schizoaffective disorder (Chronic) Sleep disorder Migraine with visual aura Meniere's disease Anxiety Severe persistent asthma Seizure-like activity Medical History [place] (hard of hearing) pt cannot hear without hearing aides History of anesthesia reaction "i get a little goofy from it" Mild neurocognitive disorder Tremor "all over" Anxiety Schizoaffective disorder CKD (chronic kidney disease) stage 2, GFR 60-89 ml/min follows with dr. watson, neph at [facility] Prediabetes GERD (gastroesophageal reflux disease) Asthma-COPD overlap syndrome daily inhaler and prn (last used yesterday) BPH w urinary obs/LUTS History of Meniere's disease History of deviated nasal septum surgery to to correct Syncope and collapse hx Drug-induced parkinsonism History of seizure reports had 1 seizure due to low sodium level- approx 2021- none since History of tobacco abuse Acute hyponatremia 1500 ml fluid restriction due to sodium Major depressive disorder Hypertension Essential hypertension Dyslipidemia Surgical History Hx of colonoscopy History of esophagogastroduodenoscopy (EGD) Hx of wisdom tooth extraction History of ear surgery right ear, had nerve clipped to help with meniere's disease History of nasal surgery (1988) due to deviated nasal septum S/P tonsillectomy Family History Father Aortic stenosis Grandfather (Maternal) Prostate cancer Grandfather (Paternal) Prostate cancer Sister Thyroid cancer Other Colonic polyp Colorectal cancer Denies family history of Ovarian cancer Myocardial infarction Breast cancer Social History Smoking Status: Former smoker Tobacco Type: Cigarettes Age Started Using Tobacco: 18; packs per day: 0.5; Cigarettes Per Day: 1/2 ppd; Second Hand Exposure: No; Do You Dip or Chew Tobacco: No; Hx Alcohol Use: Yes Hx Substance Use: No Preferred Language: Guinean Communication Ability: Effective Visual Impairment: No Limitations Hearing Ability: Use of Hearing Aid [employer] Consult[employer] Required: No Beliefs That Will Affect Care: None Current Living Situation: Spouse current occupational status: employed current occupation: [employer] Feels Safe at Home: Yes Childhood Exposure to Second-Hand Smoke: Yes Diet: regular Diet Comment: regular caffeine: Yes during the past year weight has: remained stable Dental Care, Regularly: No Physical Activity Frequency: Daily Seatbelt Use: always Gender Identity: Male Assistive Devices: None Review of Systems Review of Systems: All systems reviewed & are unremarkable except as noted in HPI & below Physical Exam Physical Exam: General: patient resting comfortably, NAD, non-toxic in appearance, AA&O x 4 Skin: warm, dry, intact, no rashes or lesions HEENT: NC/AT, PERRL, EOMI, anicteric sclera, conjunctiva without injection, external ear normal to inspection and nontender, nares patent, moist mucus membranes, dentition intact, no oropharyngeal lesions, neck supple, trachea midline, no LAD, no thyromegaly, no JVD Heart: +S1/S2, regular, no m/r/g Lungs: equal air entry bilaterally, crackles present in right base, no wheeze Abd: +BS, soft, NT/ND, no masses/organomegaly/ascites Ext: warm, 2+ pulses in UE/LE bilaterally, no clubbing/cyanosis or edema Neuro: nonfocal, patient AA&O x 4, speech intact, no facial droop, moving all extremities on command with equal strength 5/5 Results & Data Results & Data Vital Signs (Past 12 Hours) Vital Signs Temp Pulse Pulse Resp BP BP Pulse Ox 05/24/24 19:21 96 H 18 131/78 94 05/24/24 18:58 94 05/24/24 18:00 107 H 26 H 156/106 H 89 L 05/24/24 18:00 104 H 05/24/24 16:16 37.9 C H 102 H 20 148/79 H 91 O2 Del Method O2 Flow Rate 05/24/24 19:21 Nasal Cannula 05/24/24 18:58 Nasal Cannula 2 05/24/24 18:00 Room Air 05/24/24 18:00 05/24/24 16:16 Room Air Laboratory Results Laboratory Results WBC 13.92 K/ul (4.8-10.8) H 05/24/24 16:35 RBC 4.56 M/uL (4.70-6.10) L 05/24/24 16:35 Hgb 13.7 g/dl (14.0-18.0) L 05/24/24 16:35 Hct 38.8 % (42.0-52.0) L 05/24/24 16:35 MCV 85.1 fL (80.0-100.0) 05/24/24 16:35 MCH 30.0 pg (25.0-34.0) 05/24/24 16:35 MCHC 35.3 g/dL (32.0-36.0) 05/24/24 16:35 RDW Std Deviation 39.1 fL (36.4-46.3) 05/24/24 16:35 RDW Coeff of Ian 12.7 % (11.5-14.5) 05/24/24 16:35 Plt Count 274 K/uL (130-400) 05/24/24 16:35 MPV 8.6 fL (9.4-12.4) L 05/24/24 16:35 Immature Gran % (Auto) 0.9 % 05/24/24 16:35 Neut % (Auto) 81.2 % 05/24/24 16:35 Lymph % (Auto) 7.2 % 05/24/24 16:35 [place] % (Auto) 10.4 % 05/24/24 16:35 Eos % (Auto) 0.0 % 05/24/24 16:35 Baso % (Auto) 0.3 % 05/24/24 16:35 Neut # (Auto) 11.30 K/uL (1.40-6.50) H 05/24/24 16:35 Lymph # (Auto) 1.00 K/uL (1.20-3.40) L 05/24/24 16:35 [place] # (Auto) 1.45 K/uL (0.11-0.59) H 05/24/24 16:35 Eos # (Auto) 0.00 K/uL (0.00-0.50) 05/24/24 16:35 Baso # (Auto) 0.04 K/uL (0.00-0.20) 05/24/24 16:35 Immature Gran # (Auto) 0.13 K/uL (0.01-0.20) 05/24/24 16:35 Sodium 126 mmol/L (136-145) L 05/24/24 16:35 Potassium 4.3 mmol/L (3.5-5.1) 05/24/24 16:35 Chloride 90 mmol/L (98-107) L 05/24/24 16:35 Carbon Dioxide 27 mmol/L (21-32) 05/24/24 16:35 Anion Gap 9 (3-11) 05/24/24 16:35 BUN 18 mg/dl (6-23) 05/24/24 16:35 Creatinine 1.52 mg/dl (0.6-1.4) H 05/24/24 16:35 Est Cr Clr Drug Dosing 60.3 ml/min 05/24/24 16:35 eGFR 54.12 05/24/24 16:35 BUN/Creatinine Ratio 11.8 (10-20) 05/24/24 16:35 Glucose 117 mg/dl (70-99(Fasting)) H 05/24/24 16:35 Calcium 9.7 mg/dl (8.6-10.3) 05/24/24 16:35 Phosphorus 2.3 mg/dl (2.5-4.9) L 05/24/24 16:35 Magnesium 2.0 mg/dl (1.7-2.4) 05/24/24 16:35 Total Bilirubin 0.9 mg/dl (0.2-1.0) 05/24/24 16:35 AST 50 U/L (13-39) H 05/24/24 16:35 ALT 67 U/L (7-52) H 05/24/24 16:35 Alkaline Phosphatase 90 U/L (34-104) 05/24/24 16:35 Total Protein 8.2 gm/dl (6.0-8.3) 05/24/24 16:35 Albumin 4.5 gm/dl (3.4-5.0) 05/24/24 16:35 Globulin 3.7 gm/dl (2.5-4.0) 05/24/24 16:35 Albumin/Globulin Ratio 1.2 (0.9-2) 05/24/24 16:35 Adenovirus (PCR) Not Detected (NotDetected) 05/24/24 16:35 B. pertussis DNA (PCR) Not Detected (NotDetected) 05/24/24 16:35 B.parapertussis DNA PCR Not Detected (NotDetected) 05/24/24 16:35 C. pneumoniae DNA (PCR) Not Detected (NotDetected) 05/24/24 16:35 Coronavirus OC43 (PCR) Not Detected (NotDetected) 05/24/24 16:35 Coronavirus HKU1 (PCR) Not Detected (NotDetected) 05/24/24 16:35 Coronavirus 229E (PCR) Not Detected (NotDetected) 05/24/24 16:35 SARS-CoV-2 (PCR) Not Detected (NotDetected) 05/24/24 16:35 Coronavirus NL63 (PCR) Not Detected (NotDetected) 05/24/24 16:35 Monoscreen Negative (Negative) 05/24/24 16:41 Human Metapneumovir PCR Not Detected (NotDetected) 05/24/24 16:35 Influenza Type A (PCR) Not Detected (NotDetected) 05/24/24 16:35 Influenza Type B (PCR) Not Detected (NotDetected) 05/24/24 16:35 M. pneumoniae (PCR) Not Detected (NotDetected) 05/24/24 16:35 Parainfluenza 1 (PCR) Not Detected (NotDetected) 05/24/24 16:35 Parainfluenza 2 (PCR) Not Detected (NotDetected) 05/24/24 16:35 Parainfluenza 3 (PCR) Not Detected (NotDetected) 05/24/24 16:35 Parainfluenza 4 (PCR) Not Detected (NotDetected) 05/24/24 16:35 RSV (PCR) Not Detected (NotDetected) 05/24/24 16:35 Entero/Rhino (PCR) Not Detected (NotDetected) 05/24/24 16:35 Group A Strep (PCR) NOT DETECTED (NotDetected) 05/24/24 16:35 Impressions Chest X-Ray 05/24/24 16:21 EXAM: Radiograph of the Chest 1 View INDICATION: Cough TECHNIQUE: Frontal view of the chest. COMPARISON: 12/28/2023 FINDINGS: Lungs and pleural spaces: There is an approximate 5.4 x 5.5 cm groundglass infiltrate in the left lower lung. No pleural effusion or pneumothorax. Heart: Shape and configuration within normal limits allowing for technique. Mediastinum: Normal contour. Bones/joints: No fracture, erosion or dislocation. Soft tissues: No abnormality noted. No radiopaque foreign body noted. Upper abdomen: No abnormality noted. IMPRESSION: There is an approximate 5.4 x 5.5 cm groundglass infiltrate in the left lower lung. Pneumonia considered most likely including viral etiologies. ACT 112: N/A Electronically signed by Kacey Gregory 05-24-2024 6:13 PM Code Status & VTE Plan VTE Prophylaxis Plan VTE Prophylaxis will be ordered: Yes PG Care Time/CCT Total # of Minutes Spent Total Time Spent with Patient: Total time spent is greater than 50% in coordination of care (as documented) at patient's floor/unit and/or counseling patient: Coding Level of Care Code 33750 INT INP/OBS CARE 3/75MIN Diagnoses Sepsis A41.9 Pneumonia J18.9 Hyponatremia E87.1 Asthma-COPD overlap syndrome J44.89 Seizure disorder G40.909 Schizoaffective disorder F25.9 GERD (gastroesophageal reflux disease) K21.9
[2024-05-24] MEDS: cefTRIAXone SODIUM 2,000 MG/50 ML BAG IV STA (21:10)
[2024-05-24] MEDS ORDERED: PHENAZOPYRIDINE HCL 200 MG TAB PO PRN (22:04)
[2024-05-24] MEDS ORDERED: DOCUSATE SODIUM 100 MG CAP PO PRN (22:04)
[2024-05-24] MEDS ORDERED: ACETAMINOPHEN 325 MG TAB PO PRN (22:04)
[2024-05-24] MEDS ORDERED: ONDANSETRON INJ 2 MG/ML 2 ML VIAL IV PRN (22:04)
[2024-05-24] MEDS ORDERED: IPRATROPIUM BROMIDE/ALBUTEROL respimat INH INH PRN (22:04)
[2024-05-24 22:32] LABS: Phosphorus 2.3 mg/dl (2.5-4.9)
[2024-05-24] MEDS: LACTATED RINGER'S 1,000 ML IV SCH (23:38)
[2024-05-24] MEDS: DIVALPROEX EXTENDED RELEASE 500 MG TAB PO SCH (23:40)
[2024-05-24] MEDS: ENOXAPARIN INJ 40 MG/0.4 ML SYR SQ SCH (23:40)
[2024-05-24] MEDS: guaiFENesin 600 MG TABCR PO SCH (23:40)
[2024-05-24] MEDS: SIMVASTATIN 10 MG TAB PO SCH (23:41)
[2024-05-24] MEDS: TAMSULOSIN HCL 0.4 MG CAP PO SCH (23:41)
[2024-05-24] MEDS: PANTOprazole 40 MG TAB PO SCH (23:41)
[2024-05-24] MEDS: COUGH DROP (SUGAR FREE) LOZ 24 LOZ/1 BOX BUCCAL ONE (23:46)
[2024-05-25] MEDS ORDERED: IPRATROPIUM BROMIDE HFA INHALER INH PRN (01:30)
[2024-05-25] MEDS ORDERED: ALBUTEROL HFA 8 GM INHALER INH PRN (01:30)
--- NOTE | 2024-05-25 01:55 | CT Scan Report ---
Exam(s): CT CHEST Without Contrast EXAM: CT Chest Without Intravenous Contrast CLINICAL HISTORY: Reason for exam: pneumonia. TECHNIQUE: Axial computed tomography images of the chest without intravenous contrast. CTDI is 19.35 mGy and DLP is 663.44 mGy-cm. Automated exposure control was utilized for the study. A dose lowering technique was utilized adhering to the principles of ALARA. COMPARISON: Chest x-ray of the same date. FINDINGS: Lungs: There are patchy areas of infiltrate and/or atelectasis in the left lung. There is a small patchy infiltrate noted in the right upper lobe anteriorly.. Pleural space: No pneumothorax. No significant effusion. Heart: The heart is normal in size.. Bones/joints: There are some degenerative changes in the spine.. Soft tissues: Unremarkable. Vasculature: No thoracic aortic aneurysm. Lymph nodes: There are small mediastinal lymph nodes.. IMPRESSION: There are patchy areas of infiltrate and/or atelectasis in the left lung. There is a small patchy infiltrate noted in the right upper lobe anteriorly.. . Electronically signed by: Spencer Rollins MD 05/25/24 01:54 AM
[2024-05-25] MEDS: BENZONATATE 100 MG CAPSULE PO PRN (03:03)
[2024-05-25 07:47] LABS: Hematocrit (blood only) 31.1 % (42.0-52.0); Hemoglobin 10.6 g/dl (14.0-18.0); Mean Corpuscular Hemoglobin 29.4 pg (25.0-34.0); Mean Corpuscular Hgb Conc 34.1 g/dL (32.0-36.0); Mean Corpuscular Volume 86.1 fL (80.0-100.0); Mean Platelet Volume 9.1 fL (9.4-12.4); Platelet Count 232 K/uL (130-400); RDW Coefficient of Variation 13.1 % (11.5-14.5); RDW Standard Deviation 41.1 fL (36.4-46.3); Red Blood Count 3.61 M/uL (4.70-6.10)
[2024-05-25 08:05] LABS: Albumin Level 3.4 gm/dl (3.4-5.0); BUN Creatinine Ratio 11.7 (10-20); Bilirubin Direct 0.2 mg/dl (0-0.2); Bilirubin,Total 0.5 mg/dl (0.2-1.0); Calcium 8.2 mg/dl (8.6-10.3); Creatinine Clr Calc Pharmacy 76.4 ml/min; Potassium 4.1 mmol/L (3.5-5.1); Total Protein 6.1 gm/dl (6.0-8.3)
[2024-05-25] MEDS: AZITHROMYCIN 250 MG TAB PO SCH (08:23)
[2024-05-25] MEDS: lisinopril 10 MG TAB PO SCH (08:23)
[2024-05-25] MEDS: FLUTICASONE FUROATE 200MCG 14 PUFFS/INHALER INH SCH (08:23)
[2024-05-25] MEDS: DIVALPROEX EXTENDED RELEASE 500 MG TAB PO SCH (08:23)
[2024-05-25] MEDS: UMECLIDINIUM/VILANTEROL 62.5/25MCG 7 PUFFS/INHALER INH SCH (08:23)
[2024-05-25] MEDS ORDERED: NON-FORMULARY MEDICATION (Fluticasone-Umeclidin-Vilanter [Trelegy Ellipta] 200-62.5-25 mcg INH SCH (09:00)
[2024-05-25] MEDS: ALBUTEROL 0.5% NEB SOLN 2.5 MG/0.5 ML VIAL NEB PRN (11:45)
--- NOTE | 2024-05-25 15:32 | Hospitalist Progress Note ---
Date of Service May 25, 2024 Assessment & Plan (1) Sepsis: (2) Pneumonia: (3) Hyponatremia: (4) Asthma-COPD overlap syndrome: (5) Seizure disorder: (6) Schizoaffective disorder: (7) GERD (gastroesophageal reflux disease): Plan 54-year-old male with history of asthma/COPD, hypertension, hyperlipidemia presenting with 4 to 5 days of cough, fever and not feeling well. Patient with sepsis present on admission(SIRS 3/4 with heart rate = 107, respiratory rate = 26 and WBC = 13.92) chest x-ray suggestive of left lower lobe pneumonia. Requiring supplemental O2 on admission. Chest CT showed patching areas of infiltrate in the left lung and right upper lobe. Admitted for antibiotics, oxygen titration and further care. #Sepsis secondary to Pneumoniapresent on admission. Patient has received adequate IV fluids (2 L normal saline in the ER). Blood pressure is stable. Continue azithromycin PO and ceftriaxone Wean O2 as able, baseline room air Supportive care: IS, Mucinex BID, prn tylenol, prn zofran #Asthma/COPD overlap syndrome Combivent every 6 hours scheduled. Continue daily fluticasone umeclidinium or formulary equivalent Will add IV decadron with wheezing on exam today PRN nebs #Hyponatremia acute on chronic. Baseline sodium variable, Na 126 on admission, improved to 130. Patient is asymptomatic. Likely secondary to underlying pulmonary condition Urine Osm 681, urine Na 104, serum Osm 267 - pt has been rehydrated 2L NSS and 2L LR Legionella urine antigen oendng AM BMP #Seizure disorder Continue home Depakote 500 mg p.o. every morning and 1 g p.o. every afternoon #Hypertension Continue home lisinopril 10 mg p.o. every morning #GERD Continue Protonix 40 mg p.o. every afternoon #Hyperlipidemia Continue simvastatin 10 mg p.o. every afternoon #BPH Continue Flomax 0.4 mg p.o. every afternoon Dispo: continue inpatient stay awaiting clinical improvement DVT proh: lovenox Admission and Anticipated Discharge Date Admission Date: May 24, 2024 Supervising Physician Co-Signing Physician Notes Attending Attestation: Chart reviewed, care plan d/w MARILIN Morse. I agree w/ the long components of her documentation. Acute on chronic hyponatremia improved today. Cont IV abx for pneumonia; agree with addition of steroids for asthma exacerbation. Paolo Siuta MD Subjective seen sitting up in the bed feels slightly better than yesterday but overall not well cough is non productive educated on IS use and demonstrated proper use Review of Systems Review of Systems: All systems reviewed & are unremarkable except as noted in Subjective Physical Exam Physical Exam: General: NAD, VS as above, appears well, hoarse voice Resp: normal respiratory effort,on room air, expiratory wheezing throughout CV: RRR, no murmur, Abd: normal bowel sounds, non tender, no hepatosplenomegaly Extremities: Moves all extremities, no edema Neuro: A&O x3, Skin: intact, no lesions noted Results & Data Results & Data Vital Signs (Past 12 Hours) Vital Signs Temp Pulse Resp BP Pulse Ox O2 Del Method 05/25/24 11:47 87 16 97 Room Air 05/25/24 08:21 Room Air 05/25/24 07:18 98.8 F 88 14 134/78 93 Room Air Laboratory Results cbc and chemistry reviewed biofire reviewed PG Care Time/CCT Total # of Minutes Spent Total Time Spent with Patient: Total time spent is greater than 50% in coordination of care (as documented) at patient's floor/unit and/or counseling patient: Coding Level of Care Code 72832 SUB INP/OBS CARE 3/50MIN Diagnoses Sepsis A41.9 Pneumonia J18.9 Hyponatremia E87.1 Asthma-COPD overlap syndrome J44.89 Seizure disorder G40.909 Schizoaffective disorder F25.9 GERD (gastroesophageal reflux disease) K21.9
[2024-05-25] MEDS: dexAMETHasone 6 MG in SYRINGE 0 ML IV SCH (16:47)
[2024-05-25] MEDS: cefTRIAXone SODIUM 2,000 MG/50 ML BAG IV SCH (20:30)
[2024-05-26 06:13] LABS: Hematocrit (blood only) 33.8 % (42.0-52.0); Hemoglobin 11.7 g/dl (14.0-18.0); Mean Corpuscular Hgb Conc 34.6 g/dL (32.0-36.0); Mean Corpuscular Volume 86.7 fL (80.0-100.0); Mean Platelet Volume 9.1 fL (9.4-12.4); Platelet Count 285 K/uL (130-400); RDW Standard Deviation 41.1 fL (36.4-46.3); White Blood Count 11.47 K/ul (4.8-10.8)
[2024-05-26 06:28] LABS: Calcium 8.8 mg/dl (8.6-10.3); Creatinine Clr Calc Pharmacy 85.6 ml/min; Potassium 4.6 mmol/L (3.5-5.1)
[2024-05-26] MEDS: oxyBUTYnin chloride 5 MG TAB PO PRN (08:33)
--- NOTE | 2024-05-26 10:07 | Hospitalist Progress Note ---
Date of Service May 26, 2024 Assessment & Plan (1) Sepsis: (2) Pneumonia: (3) Hyponatremia: (4) Asthma-COPD overlap syndrome: (5) Seizure disorder: (6) Schizoaffective disorder: (7) GERD (gastroesophageal reflux disease): Plan 54-year-old male with history of asthma/COPD, hypertension, hyperlipidemia presenting with 4 to 5 days of cough, fever and not feeling well. Patient with sepsis present on admission(SIRS 3/4 with heart rate = 107, respiratory rate = 26 and WBC = 13.92) chest x-ray suggestive of left lower lobe pneumonia. Requiring supplemental O2 on admission. Chest CT showed patching areas of infiltrate in the left lung and right upper lobe. Admitted for antibiotics, oxygen titration and further care. #Sepsis secondary to Pneumoniapresent on admission. Patient has received adequate IV fluids (2 L normal saline in the ER). Blood pressure is stable. Continue azithromycin PO and ceftriaxone Wean O2 as able, baseline room air Supportive care: IS, Mucinex BID, prn tylenol, prn zofran Increasing leukocytosis (11.4) likely reactive to steroids Add FV today. Encourage ambulation #Asthma/COPD overlap syndrome Combivent every 6 hours scheduled. Continue daily fluticasone umeclidinium or formulary equivalent Continue IV decadron daily PRN nebs #Hyponatremia acute on chronic. Baseline sodium variable, Na 126 on admission, now 134. Likely secondary to pulmonary infection Urine Osm 681, urine Na 104, serum Osm 267 - pt has been rehydrated 2L NSS and 2L LR Legionella urine antigen pendng AM BMP #Seizure disorder Continue home Depakote 500 mg p.o. every morning and 1 g p.o. every afternoon #Hypertension Continue home lisinopril 10 mg p.o. every morning #GERD Continue Protonix 40 mg p.o. every afternoon #Hyperlipidemia Continue simvastatin 10 mg p.o. every afternoon #BPH Continue Flomax 0.4 mg p.o. every afternoon Dispo: continue inpatient stay awaiting clinical improvement DVT proh: lovenox Admission and Anticipated Discharge Date Admission Date: May 24, 2024 Supervising Physician Co-Signing Physician Notes Attending Attestation: Chart reviewed, care plan d/w MARILIN Morse. I agree w/ the long components of her documentation with the following additions - * [place] -- presenting Cr 1.5; now 1 today * Pre-Diabetes Acute on chronic hyponatremia -- again improved today, Na now 134. Cont IV abx for pneumonia; cont steroids for asthma exacerbation. Glucose noted to be high - would add BSG checks. Last a1c c/w pre-DM --> a1c 5.8% in 03/2024. Paolo Soto MD Subjective patient seen sitting up in bed reports still not feeling well cough is still mainly non producitve still with hoarse voice appetite is improving He has not been walking much because he feels so lousy Review of Systems Review of Systems: All systems reviewed & are unremarkable except as noted in Subjective Physical Exam Physical Exam: General: NAD, VS as above, appears well, hoarse voice Resp: normal respiratory effort,on room air, expiratory wheezing in the bases CV: RRR, no murmur, Abd: normal bowel sounds, non tender, no hepatosplenomegaly Extremities: Moves all extremities, no edema Neuro: A&O x3, Skin: intact, no lesions noted Results & Data Results & Data Vital Signs (Past 12 Hours) Vital Signs Temp Pulse Resp BP BP Pulse Ox O2 Del Method 05/26/24 08:31 94 Room Air 05/26/24 08:02 97.7 F 85 16 120/77 91 Room Air 05/26/24 07:55 85 20 91 Room Air 05/26/24 07:30 Room Air 05/26/24 05:55 95 H 18 97 Room Air 05/26/24 03:19 84 18 91 Nasal Cannula 05/26/24 01:04 90 Nasal Cannula 05/26/24 00:41 78 1 L 88 L Room Air 05/26/24 00:18 97.7 F 69 20 128/71 95 Room Air O2 Flow Rate 05/26/24 08:31 05/26/24 08:02 05/26/24 07:55 05/26/24 07:30 05/26/24 05:55 05/26/24 03:19 2 05/26/24 01:04 2 05/26/24 00:41 05/26/24 00:18 Laboratory Results cbc and chemistry reviewed PG Care Time/CCT Total # of Minutes Spent Total Time Spent with Patient: Total time spent is greater than 50% in coordination of care (as documented) at patient's floor/unit and/or counseling patient: Coding Level of Care Code 51868 SUB INP/OBS CARE 50MIN Diagnoses Sepsis A41.9 Pneumonia J18.9 Hyponatremia E87.1 Asthma-COPD overlap syndrome J44.89 Seizure disorder G40.909 Schizoaffective disorder F25.9 GERD (gastroesophageal reflux disease) K21.9
[2024-05-26 21:17] VITALS: TEMP 98.1
[2024-05-27 07:30] VITALS: BP 146/80
[2024-05-27 07:47] VITALS: PULSE 101; RESP 20; O2SAT 98
--- NOTE | 2024-05-27 09:48 | Discharge Summary ---
Discharge Summary Date of Service May 27, 2024 Principal Dx & Hospital Course #1 = Principal Diagnosis (1) Sepsis: (2) Pneumonia: (3) Hyponatremia: (4) Asthma-COPD overlap syndrome: (5) Seizure disorder: (6) Schizoaffective disorder: (7) GERD (gastroesophageal reflux disease): Plan #Sepsis secondary to Pneumonia/ Asthma/COPD overlap syndrome 54-year-old male with history of asthma/COPD, hypertension, hyperlipidemia presenting with 4 to 5 days of cough, fever and not feeling well. Patient with sepsis present on admission(SIRS 3/4 with heart rate = 107, respiratory rate = 26 and WBC = 13.92) chest x-ray suggestive of left lower lobe pneumonia. Requiring supplemental O2 on admission. Chest CT showed patching areas of infiltrate in the left lung and right upper lobe. Responded well to IV fluids, ceftriaxone, azithromycin and IV dexamethasone. Continue supportive care with IS, FV and Mucinex. No longer requiring supplemental oxygen, ambulating in the halls. Discharge to home with azithromycin, augmentin, prednisone taper and prn nebs. Continue home inhalers. #Hyponatremia acute on chronic. Likely secondary to pulmonary infection and dehydration. this has resolved. Legionella urine antigen pending #Prediabetes - continue metformin #Seizure disorder Continue Depakote 500 mg p.o. every morning and 1 g p.o. every afternoon #Hypertension Continue lisinopril 10 mg p.o. every morning #GERD Continue Protonix 40 mg p.o. every afternoon #Hyperlipidemia Continue simvastatin 10 mg p.o. every afternoon #BPH Continue Flomax 0.4 mg p.o. every afternoon Dispo: discharge to home today Notes For Next Care Provider Legionella urine antigen pending Admission HPI Per Admitting Provider Jarvis Adair is a 54-year-old male with history of hypertension, hyperlipidemia, GERD presenting from home with 4 to 5 days of feeling ill. Patient reports cough, predominantly dry but occasionally productive for ryan sputum as well as sore throat and fever. He has had hoarseness over the last 3 days as well as progressive shortness of breath. He developed some nonbloody diarrhea today as well. Denies abdominal pain, nausea, vomiting, chest pain or tightness, edema, orthopnea, weight loss or night sweats. Former smoker - quit two weeks ago. In the ER patient with elevated temperature 37.9, elevated heart rate at 107 bpm, elevated respiratory rate at 26 breaths/min saturating 89% on room air which improved to 94% with 2 L nasal cannula. Patient does not use supplemental oxygen at home ER Course: Normal saline x 2 L Albuterol 3 mL neb Tylenol x 1 g IV Hydrocodone Azithromycin 500 mg IV Ceftriaxone 2 g Discharge Exam General: NAD, VS as above, appears well, hoarse voice Resp: normal respiratory effort,on room air,diminished in bases, no adventicious sounds CV: RRR, no murmur, Abd: normal bowel sounds, non tender, no hepatosplenomegaly Extremities: Moves all extremities, no edema Neuro: A&O x3, Skin: intact, no lesions noted Discharge Plan Discharge Items Patient Disposition: Home - Self-Care Reason For Visit: PNEUMONIA Discharge Diagnosis: Pneumonia Activity: As commented below Activity Comment: as tolerated Weightbearing: Full weightbearing Non-emergency contact: Primary Care Provider Call non-emergency contact if: you have any medication questions, your symptoms worsen, your pain is not controlled and your temperature is above 101 Follow-up/Referrals: Arik Ferraro DO [Primary Care Provider] - 05/29/24 11:00 am Diet: Heart Healthy Addtl Attending Provider Instructions: Mr. Borrero, You were hospitalized after having worsening shortness of breath requiring supplemental oxygen. Thankfully, this has improved with IV antibiotics and IV steroids. You are now on room air. You will be discharged with oral steroids and prednisone taper. Please continue to take your daily inhaler. You can also use your nebulizer as needed - I recommend using this once or twice a day while you are still feeling ill. Please continue to use your incentive spirometer and flutter valve at home to help your lungs. Recommend refraining from smoking as this will hider your healing process and your lungs. Work note has been provided to be off work until you can follow up with your PCP. This is scheduled for 05/29 11:00 AM Medication changes at discharge: - prednisone taper, follow instructions on the bottle - azithromycin, one more dose on 05/28 - Augmentin, twice a day, first dose PM 05/27 - Mucinex - twice a day, first dose PM 05/27 - Tessalon pearls - as needed for cough - albuterol nebs - as needed for shortness of breath or wheezing Activity: You can do normal everyday activities as your body allows. Take rest breaks if you feel tired. Do not overexert. Stop activity if you have pain, shortness of breath or feel dizzy. Follow-up appointments: Make an appointment with your primary care physician within one week of discharge. A copy of this summary will be sent to them. Every time you see your primary care physician, or any other doctor, bring your medication list, and a list of questions. CONTACT YOUR PRIMARY CARE PROVIDER if you experience any of the following: Shortness of breath or difficulty breathing Fevers or chills Feeling tired with normal activity or experiencing dizziness or fainting Difficulty following your treatment plan, or difficulty taking medications CALL 911 OR GO TO THE EMERGENCY DEPARTMENT if you experience any of the following: Severe abdominal pain or nausea/vomiting Severe chest pain, or chest pain that radiates (moves) to your jaw or arm Sudden, severe shortness of breath or difficulty breathing Thank you for allowing us to participate in your care. Pending Studies at Discharge: No Stand-Alone Forms: My [facility] Stand Offer, Work/School Release, Smoking Cessation Medications and DC Order Prescriptions: New azithromycin 250 mg Tablet 250 mg PO QAM Qty: 1 0RF guaifenesin [Mucinex] 600 mg Tablet Extended Release 12hr 1,200 mg PO Q12 Qty: 10 0RF benzonatate 100 mg Capsule 100 mg PO TID PRN (Reason: cough) 3 Days Qty: 9 0RF amoxicillin-pot clavulanate 875-125 mg tablet 1 tab PO BID Qty: 8 0RF Rx Instructions: first dose PM / albuterol sulfate 2.5 mg/0.5 mL solution for nebulization 5 mg inhalation Q4H PRN (Reason: shortness of breath or wheezing) Qty: 30 0RF prednisone 10 mg tablet See Taper PO DIRECTED Qty: 26 0RF Taper: Taper, Blank 40 mg DAILY for 2 Days 30 mg DAILY for 3 Days 20 mg DAILY for 3 Days 10 mg DAILY for 3 Days Rx Instructions: see taper instructions Continued metformin 500 mg tablet 500 mg PO BID Qty: 180 2RF Trelegy Ellipta 200-62.5-25 mcg blister with device 1 inh inhalation DAILY Qty: 60 5RF Rx Instructions: WITH A RINSE OF MOUTH AFTERWARDS. rizatriptan 10 mg tablet 10 mg PO .COMPLEX MDD 20mg PRN (Reason: migraine headache) Qty: 9 0RF Rx Instructions: 10 mg orally prn migraine, repeat after two hours prn Emgality Pen 120 mg/mL pen injector 120 mg subcut MONTHLY 30 Days Qty: 1 6RF Nurtec ODT 75 mg tablet,disintegrating 75 mg PO DAILY PRN (Reason: migraine headache) Qty: 8 5RF Rx Instructions: 75mg po once a day prn acute migraine simvastatin 10 mg tablet 10 mg PO QPM Combivent Respimat 20-100 mcg/actuation mist 1 puff INH Q6H PRN (Reason: sob) Qty: 4 2RF divalproex 500 mg tablet extended release 24 hr 500 - 1,000 mg PO UD Rx Instructions: 500 mg in am 1,000 mg in pm tamsulosin 0.4 mg capsule 0.4 mg PO QPM pantoprazole 40 mg tablet,delayed release (DR/EC) 40 mg PO QPM lisinopril 10 mg tablet 10 mg PO QAM N Acetylcystine 1 unit 600 mg PO BID phenazopyridine [Pyridium] 200 mg tablet 200 mg PO Q8H PRN (Reason: pain) Qty: 10 0RF oxybutynin chloride 5 mg tablet 5 mg PO BID PRN (Reason: bladder spasms) Qty: 14 0RF Discharge Orders: Discharge Order (Routine); Ordered 05/27/24 Ordered By: Stephanie Gustafson/Other Patient Handouts: ED Pneumonia (Adult) Admission Data Admit Date/Time: 05/24/24 19:47 Attending Provider: Paolo Soto Admit Provider: Fartun Beal Primary Care Provider: Arik Ferraro Other Interventions: Discharge Summary Assessment (RN) Last Done: 05/27/24 09:52 Hospital Stay Data Diagnostic Imagining Performed Chest X-Ray 05/24/24 16:21 EXAM: Radiograph of the Chest 1 View INDICATION: Cough TECHNIQUE: Frontal view of the chest. COMPARISON: 12/28/2023 FINDINGS: Lungs and pleural spaces: There is an approximate 5.4 x 5.5 cm groundglass infiltrate in the left lower lung. No pleural effusion or pneumothorax. Heart: Shape and configuration within normal limits allowing for technique. Mediastinum: Normal contour. Bones/joints: No fracture, erosion or dislocation. Soft tissues: No abnormality noted. No radiopaque foreign body noted. Upper abdomen: No abnormality noted. IMPRESSION: There is an approximate 5.4 x 5.5 cm groundglass infiltrate in the left lower lung. Pneumonia considered most likely including viral etiologies. ACT 112: N/A Electronically signed by Colt Kacey 05-24-2024 6:[address] 05/24/24 19:47 Exam(s): CT CHEST Without Contrast EXAM: CT Chest Without Intravenous Contrast CLINICAL HISTORY: Reason for exam: pneumonia. TECHNIQUE: Axial computed tomography images of the chest without intravenous contrast. CTDI is 19.35 mGy and DLP is 663.44 mGy-cm. Automated exposure control was utilized for the study. A dose lowering technique was utilized adhering to the principles of ALARA. COMPARISON: Chest x-ray of the same date. FINDINGS: Lungs: There are patchy areas of infiltrate and/or atelectasis in the left lung. There is a small patchy infiltrate noted in the right upper lobe anteriorly.. Pleural space: No pneumothorax. No significant effusion. Heart: The heart is normal in size.. Bones/joints: There are some degenerative changes in the spine.. Soft tissues: Unremarkable. Vasculature: No thoracic aortic aneurysm. Lymph nodes: There are small mediastinal lymph nodes.. IMPRESSION: There are patchy areas of infiltrate and/or atelectasis in the left lung. There is a small patchy infiltrate noted in the right upper lobe anteriorly.. . Electronically signed by: Spencer Rollins MD 05/25/24 01:54 AM Pending Results Patient Have Any Pending Studies at Discharge: No Discharge Instructions Given to Patient (Per Discharging Provider) Mr. Borrero, Harpreet were hospitalized after having worsening shortness of breath requiring supplemental oxygen. Thankfully, this has improved with IV antibiotics and IV steroids. You are now on room air. You will be discharged with oral steroids and prednisone taper. Please continue to take your daily inhaler. You can also use your nebulizer as needed - I recommend using this once or twice a day while you are still feeling ill. Please continue to use your incentive spirometer and flutter valve at home to help your lungs. Recommend refraining from smoking as this will hider your healing process and your lungs. Work note has been provided to be off work until you can follow up with your PCP. This is scheduled for 05/29 11:00 AM Medication changes at discharge: - prednisone taper, follow instructions on the bottle - azithromycin, one more dose on 05/28 - Augmentin, twice a day, first dose PM 05/27 - Mucinex - twice a day, first dose PM 05/27 - Tessalon pearls - as needed for cough - albuterol nebs - as needed for shortness of breath or wheezing Activity: You can do normal everyday activities as your body allows. Take rest breaks if you feel tired. Do not overexert. Stop activity if you have pain, shortness of breath or feel dizzy. Follow-up appointments: Make an appointment with your primary care physician within one week of discharge. A copy of this summary will be sent to them. Every time you see your primary care physician, or any other doctor, bring your medication list, and a list of questions. CONTACT YOUR PRIMARY CARE PROVIDER if you experience any of the following: Shortness of breath or difficulty breathing Fevers or chills Feeling tired with normal activity or experiencing dizziness or fainting Difficulty following your treatment plan, or difficulty taking medications CALL 911 OR GO TO THE EMERGENCY DEPARTMENT if you experience any of the following: Severe abdominal pain or nausea/vomiting Severe chest pain, or chest pain that radiates (moves) to your jaw or arm Sudden, severe shortness of breath or difficulty breathing Thank you for allowing us to participate in your care. Total Time Total Time Spent Total Time Spent (In Minutes): Time spent day of discharge 36 minutes including direct patient care, medication reconciliation, documentation, review of labs and images, and coordination of care. Coding Level of Care Code 10524 INP/OBS DISCH >30 MIN Diagnoses Sepsis A41.9 Pneumonia J18.9 Hyponatremia E87.1 Asthma-COPD overlap syndrome J44.89 Seizure disorder G40.909 Schizoaffective disorder F25.9 GERD (gastroesophageal reflux disease) K21.9
== END 2024-05-27 10:52 | disposition home or self-care (01) | DRG 871 ==
LOC: ED 16:00 → SUATTDRO 19:47 → 3N 19:47 → 3E 05-26 06:34

== ENCOUNTER 2024-11-01 06:38 | Observation (INO) ==
--- NOTE | 2024-10-22 10:58 | Anesthesiology Consultation ---
Date of Service October 22, 2024 Assessment & Plan (1) Encounter for pre-operative examination: - Case discussed in detail with Dr. Hurtado regarding reported dyspnea on exertion with one flight of stairs and visit with PCP 08/2024 regarding leg edema. He advised patient have PCP clearance, workload note sent to [place] PCP. Surgeon's office and patient made aware. - check BSG and EKG STAT am DOS. - PCP office visit 08/21/24 [place]: "...DDx for LE edema is CKD vs CHF vs venous insufficiency. Less likely CHF. No new dyspnea compared to a month ago when he was recovering from pna. Lungs are clear on exam. UA in the office without proteinuria. Possible transient dip in renal function/perfusion. He has significant weight gain from last visit which is slightly concerning. Will start lasix and check labs and a CXR this week. He will let me know if lasix is not helpful with swelling..." - Per medicaid collection specialist on 10/08/24: No known infectious disease contacts, current infectious disease symptoms in past 10 days or COVID positive test result in the past 30 days. Chart Review Chart Review: Pending: Refer to Additional Notes / Consult section and Patient NOT seen in Pre Admission Testing History Surgery Operation Date: 11/01/24 07:30 Proposed Procedures p Robotic Assisted Laparoscopic Radical Retropubic Prostatectomy, Possible Open, Possible Pelvic Lymph Node Dissection - Dg Alvarez, DO Height/Weight Height: 5 ft 8 in Weight: 99.79 kg Allergies Allergy/AdvReac Type Severity Reaction Status Date / Time lamotrigine Allergy Mild Rash Verified 10/08/24 09:37 pineapple Allergy Unknown Unknown Verified 10/08/24 09:37 oxcarbazepine AdvReac Severe Hyponatremi Verified 10/08/24 09:37 a tramadol AdvReac Mild NAUSEA/VOMI Verified 10/08/24 09:37 TING varenicline AdvReac Unknown Unknown Verified 10/08/24 09:37 walnuts Allergy Severe Uncoded 10/08/24 09:37 Medications Home Medications Medication Instructions Recorded Confirmed Last Taken simvastatin 10 mg tablet 10 mg PO QPM 07/23/19 10/08/24 05/09/24 23:00 galcanezumab-gnlm 120 mg/mL 120 mg subcut MONTHLY 30 days #1 mL 11/28/23 10/08/24 Unknown subcutaneous pen injector (Emgality Pen) rimegepant 75 mg disintegrating 75 mg PO DAILY PRN migraine 11/28/23 10/08/24 05/03/24 tablet (Nurtec ODT) headache #8 tabs ipratropium 20 mcg-albuterol 100 1 puff inhalation Q6H PRN sob #4 12/19/23 10/08/24 05/09/24 23:00 mcg/actuation mist for inhalation grams (Combivent Respimat) fluticasone fur. 200 mcg-umeclid 1 inh inhalation DAILY #60 ea 04/16/24 10/08/24 05/09/24 11:00 62.5 mcg-vilant 25 mcg inhalat.powder (Trelegy Ellipta) lisinopril 10 mg tablet 10 mg PO QAM 05/03/24 10/08/24 05/09/24 11:00 pantoprazole 40 mg tablet,delayed 40 mg PO QPM 05/03/24 10/08/24 05/09/24 23:00 release divalproex 500 mg tablet,extended 1,500 mg PO UD 06/20/24 10/08/24 Unknown release 24 hr rizatriptan 10 mg tablet 10 mg PO .COMPLEX PRN migraine 07/19/24 10/08/24 Unknown headache #9 tabs acetylcysteine 500 mg capsule 600 mg PO BID 07/26/24 10/08/24 Unknown zcuwbiai-mfsv-zzoxw acid 240 1 tab PO DAILY 07/26/24 10/08/24 Unknown mcg-vit K 120 kjt-ponhrc-hkco 293 tablet (Alive Men's 50 Plus Multivit (vit K)) ciprofloxacin HCl 500 mg tablet 500 mg PO BID #10 tabs 08/01/24 10/08/24 Unknown (Cipro) hydrochlorothiazide 25 mg tablet 25 mg PO DAILY #30 tabs 08/29/24 10/08/24 Unknown metformin 500 mg tablet 500 mg PO BID #180 tabs 09/17/24 10/08/24 Unknown furosemide 20 mg tablet 20 mg PO DAILY #30 tabs 09/18/24 10/08/24 Unknown Past Medical History Medical History Acute hyponatremia 1500 ml fluid restriction due to sodium Anxiety Asthma-COPD overlap syndrome daily inhaler and prn has not needed recently BPH w urinary obs/LUTS CKD (chronic kidney disease) stage 2, GFR 60-89 ml/min follows with dr. watson, neph at [facility] Drug-induced parkinsonism Dyslipidemia Essential hypertension GERD (gastroesophageal reflux disease) History of anesthesia reaction "i get a little goofy from it" History of deviated nasal septum surgery to to correct History of Meniere's disease History of seizure reports had 1 seizure due to low sodium level- approx 2021- none since History of tobacco abuse [place] (hard of hearing) pt cannot hear without hearing aides Hx of migraines Hypertension Major depressive disorder Mild neurocognitive disorder Pneumonia 05/2024, after TURP; hospitalized at [facility] Prediabetes Prostate cancer (04/2024) Pulmonary nodule Schizoaffective disorder Seizure disorder ~2022, one episode, collapsed, shaking; follows w/ Neuro for migraines, possibly triggered by low sodium Sepsis hx 05/2024 Syncope and collapse hx- 2022 Tobacco abuse Quit May 2024 Tremor "all over" Past Family History Family History Father Aortic stenosis, Onset Age: 18 Grandfather (Maternal) Prostate cancer, Onset Age: 80 Surgery; Grandfather (Paternal) Prostate cancer Radiation Sister Thyroid cancer, Onset Age: 30 Surgery; Mother No problems noted. Other Colonic polyp Colorectal cancer Denies family history of Ovarian cancer Myocardial infarction Breast cancer Past Surgical History Surgical History History of ear surgery right ear, had nerve clipped to help with meniere's disease History of esophagogastroduodenoscopy (EGD) History of nasal surgery (1988) due to deviated nasal septum Hx of colonoscopy Hx of wisdom tooth extraction S/P tonsillectomy S/P TURP 05/10/24 Dr. Alvarez Social History Smoking Status: Former smoker tobacco type: cigarettes Do You Dip or Chew Tobacco: No Smoking End Date: quit 04/2024 Hx Alcohol Use: No (none since 04/3024) Alcohol type: hard liquor alcohol intake frequency: a few times a month Hx Substance Use: No substance use type: does not use Lab Results Anesthesia Preop Results Results Anesthesia Widget: WBC 7.45 K/ul (4.8-10.8) 10/17/24 Hgb 14.1 g/dl (14.0-18.0) 10/17/24 Hct 42.5 % (42.0-52.0) 10/17/24 Plt 202 K/uL (130-400) 10/17/24 Na 140 mmol/L (136-145) 10/17/24 K 4.3 mmol/L (3.5-5.1) 10/17/24 Cl 104 mmol/L (98-107) 10/17/24 CO2 26 mmol/L (21-32) 10/17/24 BUN 28 mg/dl (6-23) H 10/17/24 Creat 1.63 mg/dl (0.6-1.4) H 10/17/24 Glucose Level 104 mg/dl (70-99(Fasting)) H 10/17/24 Testing Chest X-Ray Date: 08/27/24 Minimal atelectasis right lung base. No other acute findings seen. Echocardiogram Date: 08/05/23 LVEF 60-65% No regional wall motion abnormalities No significant valvular pathology Other Testing Chest CT 05/24/24 There are patchy areas of infiltrate and/or atelectasis in the left lung. There is a small patchy infiltrate noted in the right upper lobe anteriorly.
[2024-11-01] MEDS ORDERED: MIDAZOLAM HCL 1 MG/ML 2ML VIAL ONE (06:58)
[2024-11-01] MEDS ORDERED: ROCURONIUM BROMIDE 10 MG/ML 5 ML VIAL IV ONE ×2 (06:58→10:45)
[2024-11-01] MEDS ORDERED: ONDANSETRON INJ 2 MG/ML 2 ML VIAL ONE (06:58)
[2024-11-01] MEDS ORDERED: HYDROmorphone INJ 2 MG/ML SYR/VIAL ONE (06:58)
[2024-11-01] MEDS ORDERED: PROPOFOL IV EMULSION 10 MG/ML 20 ML VIAL IV ONE (06:58)
[2024-11-01] MEDS ORDERED: LIDOCAINE 2% 2 ML VIAL/AMP(20MG/ML) INFIL ONE (06:59)
--- NOTE | 2024-11-01 07:08 | History & Physical Report ---
Date of Service November 01, 2024 Assessment & Plan (1) Prostate cancer: (2) Male stress incontinence: (3) Major depressive disorder: (4) Acute hyponatremia: (5) BPH w urinary obs/LUTS: (6) Schizoaffective disorder: (7) Seizure disorder: (8) Mild neurocognitive disorder: (9) History of anesthesia reaction: Plan Patient presenting for radical prostatectomy. Patient with low risk prostate cancer [place] 3+3. Had initially been found on transurethral resection of prostate and confirmed with prostate needle biopsy. Would be T1c based on biopsy specimen. Patient has been anxious and concerned about the findings of prostate cancer. Patient is extremely anxious about diagnosis. With his young age and overall health he wants to manage the disease as early as possible. Had been considering options for active surveillance or expectant management but was concerned about any surveillance with this. Additionally continues to have lower urinary tract issues and does not want to have to be on long-term medication for management. Reviewed extensively recovery and expectations. Discussed risk and benefits procedure discussed options moving forward. Patient wants to move forward with radical prostatectomy. Risk and benefits thoroughly reviewed all questions answered. Was seen today with family. Risks and benefits discussed at length for procedure. These include bleeding, infection, injury to surrounding tissues or organs, and risks associated with anesthesia. Patient states understanding and agrees to proceed. Will sign consent and schedule. Plan for robot-assisted laparoscopic prostatectomy with bilateral pelvic lymph node dissection History of Present Illness Primary Care Provider: Arik Ferraro, DO Patient here for procedure. No changes in medical issues. No major changes in urinary issues. Continued issues and concerns. No change in pain or discomfort. No severe fevers or chills. No chest pain or shortness of breath. Risks and benefits discussed at length for procedure. These include bleeding, infection, injury to surrounding tissues or organs, and risks associated with anesthesia. Patient and/or family states understanding and agrees to proceed. Consent and supporting information completed. Allergies Allergy/AdvReac Type Severity Reaction Status Date / Time lamotrigine Allergy Mild Rash Verified 11/01/24 06:59 oxcarbazepine AdvReac Severe Hyponatremi Verified 11/01/24 06:59 a tramadol AdvReac Mild NAUSEA/VOMI Verified 11/01/24 06:59 TING varenicline AdvReac Unknown Unknown Verified 11/01/24 06:59 Home Medications Medication Instructions Recorded Confirmed Type galcanezumab-gnlm 120 mg/mL 120 mg subcut MONTHLY 30 days #1 mL 11/28/23 11/01/24 Rx subcutaneous pen injector (Emgality Pen) rimegepant 75 mg disintegrating 75 mg PO DAILY PRN migraine 11/28/23 11/01/24 Rx tablet (Nurtec ODT) headache #8 tabs ipratropium 20 mcg-albuterol 100 1 puff inhalation Q6H PRN sob #4 12/19/23 11/01/24 Rx mcg/actuation mist for inhalation grams (Combivent Respimat) fluticasone fur. 200 mcg-umeclid 1 inh inhalation DAILY #60 ea 04/16/24 11/01/24 Rx 62.5 mcg-vilant 25 mcg inhalat.powder (Trelegy Ellipta) lisinopril 10 mg tablet 10 mg PO QAM 05/03/24 11/01/24 History pantoprazole 40 mg tablet,delayed 40 mg PO QPM 05/03/24 11/01/24 History release divalproex 500 mg tablet,extended 1,500 mg PO UD 06/20/24 11/01/24 History release 24 hr rizatriptan 10 mg tablet 10 mg PO .COMPLEX PRN migraine 07/19/24 11/01/24 Rx headache #9 tabs acetylcysteine 500 mg capsule 600 mg PO BID 07/26/24 11/01/24 History rtrafkre-cqsd-iasnq acid 240 1 tab PO DAILY 07/26/24 11/01/24 History mcg-vit K 120 ixf-euiwux-mywk 293 tablet (Alive Men's 50 Plus Multivit (vit K)) hydrochlorothiazide 25 mg tablet 25 mg PO DAILY #30 tabs 08/29/24 11/01/24 Rx metformin 500 mg tablet 500 mg PO BID #180 tabs 09/17/24 11/01/24 Rx simvastatin 10 mg tablet 10 mg PO QPM #90 tabs 10/25/24 11/01/24 Rx Past Med/Surg History Problem List Diastolic dysfunction Encounter for pre-operative examination Male stress incontinence Prostate cancer (Chronic 05/10/24) Hx of migraines Right hip pain BPH w urinary obs/LUTS (Chronic) CKD (chronic kidney disease) stage 2, GFR 60-89 ml/min Prediabetes Microalbuminuria Obesity Vitamin D deficiency Mild neurocognitive disorder Pulmonary nodule Tremor Sleep disorder Migraine with visual aura Meniere's disease Anxiety Severe persistent asthma Medical History Pulmonary nodule Hx of migraines Prostate cancer (04/2024) Tobacco abuse Quit May 2024 Sepsis hx 05/2024 Pneumonia 05/2024, after TURP; hospitalized at [place] Seizure disorder ~2022, one episode, collapsed, shaking; follows w/ Neuro for migraines, possibly triggered by low sodium GERD (gastroesophageal reflux disease) UTE (hard of hearing) pt cannot hear without hearing aides History of anesthesia reaction "i get a little goofy from it" Mild neurocognitive disorder Tremor "all over" Anxiety Schizoaffective disorder CKD (chronic kidney disease) stage 2, GFR 60-89 ml/min follows with dr. watson, neph at [facility] Prediabetes Asthma-COPD overlap syndrome daily inhaler and prn has not needed recently BPH w urinary obs/LUTS History of Meniere's disease History of deviated nasal septum surgery to to correct Syncope and collapse hx- 2022 Drug-induced parkinsonism History of seizure reports had 1 seizure due to low sodium level- approx 2021- none since History of tobacco abuse Acute hyponatremia 1500 ml fluid restriction due to sodium Major depressive disorder Hypertension Essential hypertension Dyslipidemia Surgical History S/P TURP 05/10/24 Dr. Alvarez Hx of colonoscopy History of esophagogastroduodenoscopy (EGD) Hx of wisdom tooth extraction History of ear surgery right ear, had nerve clipped to help with meniere's disease History of nasal surgery (1988) due to deviated nasal septum S/P tonsillectomy Family History Father Aortic stenosis, Onset Age: 18 Grandfather (Maternal) Prostate cancer, Onset Age: 80 Surgery; Grandfather (Paternal) Prostate cancer Radiation Sister Thyroid cancer, Onset Age: 30 Surgery; Mother No problems noted. Other Colonic polyp Colorectal cancer Denies family history of Ovarian cancer Myocardial infarction Breast cancer Social History Smoking Status: Former smoker Tobacco Type: Cigarettes Age Started Using Tobacco: 18; Age Quit Using Tobacco: 54; packs per day: 1; Smoking End Date: quit 04/2024; Second Hand Exposure: No; Do You Dip or Chew Tobacco: No; Tobacco Cessation Education Requested by Patient: No Hx Alcohol Use: No (none since 04/3024) Hx Substance Use: No Preferred Language: Kinyarwanda Communication Ability: Effective Visual Impairment: No Limitations Hearing Ability: Use of Hearing Aid Drapery Examiner Required: No Beliefs That Will Affect Care: None Current Living Situation: Spouse current occupational status: employed current occupation: [employer]; Other Information That Helps Us Care for You: No Feels Safe at Home: Yes Safety Concerns: Feels Safe At This Time Childhood Exposure to Second-Hand Smoke: No Diet: regular Diet Comment: regular caffeine: Yes during the past year weight has: remained stable Dental Care, Regularly: No Physical Activity Frequency: Daily Seatbelt Use: always Gender Identity: Male Assistive Devices: Contacts, Glasses and Hearing Aid - Bilateral Assistive Devices Comment: very UTE, will need hearing aids after procedure Review of Systems All systems reviewed & are unremarkable except as noted in HPI & below Physical Exam Physical Exam: General: Alert/Arousable. No Acute illness. . HEENT: Inspection normal. Normal inspection of face. Normal inspection of neck. Psychologic: Normal affect/No change in mentation. Respiratory: No use of accessory muscles. No respiratory changes or exacerbation or changes with tachypnea or dyspnea. Cardiovascular: No tachycardia Skin: [place] and Dry. No new rashes or visible lesions. Abdomen: Normal inspection. No guarding. PG Care Time/CCT Total # of Minutes Spent Total Time Spent with Patient: Total time spent is greater than 50% in coordination of care (as documented) at patient's floor/unit and/or counseling patient: Coding Level of Care Code None Diagnoses Prostate cancer C61 Male stress incontinence N39.3 Major depressive disorder F32.9 Acute hyponatremia E87.1 BPH w urinary obs/LUTS N40.1; N13.8 Schizoaffective disorder F25.9 Seizure disorder G40.909 Mild neurocognitive disorder G31.84 History of anesthesia reaction Z87.898
[2024-11-01] MEDS ORDERED: HYDROmorphone INJ 2 MG/ML SYR/VIAL IV PRN (07:22)
[2024-11-01] MEDS ORDERED: ATROPINE SULFATE 0.1 MG/ML 10ML SYR IV PRN (07:22)
[2024-11-01] MEDS ORDERED: KETAMINE HCL 10MG/ML SYR ONE (07:29)
[2024-11-01] MEDS: LR 15ML/HR IV SCH (07:38)
[2024-11-01] MEDS ORDERED: DEXAMETHASONE SOD INJ 4 MG/ML VIAL ONE (08:23)
[2024-11-01] MEDS ORDERED: PHENYLEPHRINE HCL 10 MG/ML VIAL ONE (09:07)
[2024-11-01] MEDS: SURGICEL ABSORB HEMOSTAT 2IN X 14IN TOP ONE (09:50)
[2024-11-01] MEDS ORDERED: SUGAMMADEX SODIUM 200 MG/2 ML VIAL IV ONE ×2 (10:44→14:20)
[2024-11-01] MEDS ORDERED: KETOROLAC 30 MG/ML VIAL ONE (11:43)
--- NOTE | 2024-11-01 11:57 | Operative Report ---
PG Post Operative Report Pre & Post Diagnosis Operation Date: 11/01/24 07:30 Pre-Op Diagnosis: Prostate cancer, male stress incontinence, benign prostatic hyperplasia with lower urinary tract symptoms Post-Op Diagnosis: Prostate cancer, male stress incontinence, benign prostatic hyperplasia with lower urinary tract symptoms I identified the patient and participated in the time-out.: Yes Procedure Operation Date: 11/01/24 07:30 Actual Procedures p Robotic Assisted Laparoscopic Radical Retropubic Prostatectomy, Pelvic Lymph Node Dissection, Cystoscopy(Not Applicable) - Dg Alvarez DO Surgeon Dg Alvarez, II, DO A&P Technician Jonathan WARNER Estimated Blood Loss 20 Findings Consistent with Post-Op Diagnosis High bladder neck with obstruction. Cystoscopy for catheter placement. Small prostate with fibrous changes likely secondary to scarring. Specimens Prostate and Seminal Vesicle Left Pelvic Lymph Nodes Right Pelvic Lymph Nodes. Drains 18 Parikh catheter. Anesthesia Type General Complications none Disposition Disposition: Recovery Room Indications Patient with Prostate Cancer. Risk and benefits were discussed at length. Patient elected to undergo robotic assisted laparoscopic Radical Prostatectomy. Description of Procedure The patient was brought to the operative suite and placed under general endotracheal intubation anesthesia in the supine position. The patient was transferred to the dorsal lithotomy position. At this point, the patient prepped and draped in the usual sterile fashion and a timeout was completed. Preoperative antibiotics of Ancef 2 grams had been given. MARIO's and SCD's were placed on the patient's lower extremities. A catheter was attempted to be placed. There was difficulty advancing the catheter however. Multiple attempts were made including a coud catheter. After being unable to advance with the patient's own history of a very high bladder neck and previous resection it was decided to utilize a flexible cystoscope to assess the flexible cystoscope was placed using sterile technique. The bladder neck had no significant scarring or constricted area. There was no stricture within the urethra. The bladder neck was still significantly elevated which appeared to be causing the difficulty and the catheter placement. A wire was able to be placed and over the wire the catheter was then able to be placed without major issue. This catheter was placed using sterile technique. With the time out completed the patient was placed into Trendelenburg and the skin at the umbilicus was anesthetized. A small incision was made superior to the umbilicus. A Varess Needle was placed and confirmed to be in the abdominal cavity. Water drop test passed. The Abdominal cavity was insufflated to 15 mmHG. The camera port was then placed. A laparoscopic camera was placed into the port and the abdominal cavity inspected. No concerning features were noted. At this point, the skin was marked for port placement and 8mm working ports were placed. The skin was anesthetized down to fascia and an approx 1cm incision was made to place the 3 x 8mm ports. A 12 mm and 5 mm visitor services information assistant ports were also placed in similar fashion under direct visualization. The patient was transferred into steep Trendelenburg position and the legs lowered. The robot was positioned and docked. The camera was placed and all trocars were positioned under direct visualization. Jonathan WARNER was integral in port placement, camera utilization, and docking procedure. She remained in sterile attire and then proceeded to assist the remainder of the case. At this point, I transitioned to the robotic console. At this point, the sigmoid colon was mobilized superiorly and the pelvis assessed. Adhesions were freed to allow mobilization. The peritoneum in the midline was opened between rectum and bladder and the vas deferens and seminal vesicles exposed. These were dissected with blunt technique. The vas was clipped and cut and mobilized. Cautery was used to assist dissection avoiding the tissue posteriorly near the rectum. The tissues lateral to the seminal vesicles were clipped with a hemolock and all bleeding controlled. This was taken as inferior as possible from this position. The medial umbilical ligaments were then identified and the peritoneum directly lateral on the right followed by the left was opened. The tissues were bluntly dissected to free the bladder's lateral attachments. This was taken down to the pubic bone and exposed the endopelvic fascia bilaterally. The medial ligaments were cut and the bladder dropped. The tissues was dissected anterior to the prostate. The endopelvic fascia on each side was then opened and the lateral edges of the prostate dissected. The Dorsal venous complex of the prostate was dissected and assessed. A 2-0 PDS suture was used to ligate the vessels. A suspension stitch was used and clipped. Electrocautery was used to cut the anterior attachments, the puboprostatic ligaments, and venous tissues. The right and left pelvic lymph tissue was identified in relation to the iliac vessels. Distal dissection was taken to the Node of Marta. Inferiorly the obtorator vessels and nerve were identified. Lymphatic tissue within the cruz rround fat tissue was dissected. This packet of tissues were sent for pathologic analysis and lymph node assessment. This was done for each separate side. Hemostatic agent was placed on the exposed vessels. The parikh was manipulated to better visual the bladder neck and dissection was taken using electrocautery. The bladder neck was opened and dissected from the prostate. The prostate appeared small and had significant areas of fibrous changes likely secondary to previous procedure and biopsy. This did not considerably limit dissection as the small size was amendable to dissection The UO were identifed and dissection taken in a direction to avoid each side. The vas stump and seminal vesicles were exposed and used to assist in traction to dissect. The prostatic pedicles were better exposed. The posterior prostate was dissected. An attempt was made to limit cautery and utilize cold dissection of the lateral posterior prostate to attempt preservation of the neurovascular bundle bilaterally. Hemolock clips were utilized to clip the prostatic pedicle bilaterally. The dissection was taken to the apex of the prostate. The anterior prostate was released and the urethra exposed. Cold cutting was used to open the anterior portion and expose the catheter. This was removed and the urethra incised. The prostate was further freed and grasped and removed from the field. The entire dissection bed was inspected.Hemostatic agent was placed in the region. No areas of injury or bleeding was noted. Care was taken to examine the perirectal tissues. A probe was placed and no injuries or other issues were observed. The bladder neck and urethra were then approximated with a running barbed suture starting at the 5 o'clock position and moving to the 12 o'clock on each side. This was secured at the anterior portion. The anterior portion of the bladder was further closed using a eqhvum-wi-cikwy stitch with a 2-0 Vicryl suture. This further close the junction in the anterior portion. A leak test was completed without any evidence of issues. The entire dissection space was inspected one final time. No bleeding or injuries or areas of concern were noted. No tumor or other concerning features were noted. At this point, the robot was undocked and moved away from the patient. The patient was taken out of Trendelenberg. The port sites were all assessed lap aroscopically. The endoscopic bag was moved into the midline port. The 10mm port site was closed with the Adonis Don device. The other ports were assessed and no issues observed. The umbilical incision was opened further exposing fascia which was then opened in order to removed the prostate in the bag. The prostate was removed. A running PDS suture was used to close fascia. The skin at each site was closed with a stapling device. The area was cleaned and bandages placed on each incision. The patient was cleaned and bandaged, aroused from anesthesia, and transferred to the pacu in stable condition having tolerated the procedure well with no complications. I was present and participated in all aspects of the procedure. Jonathan WARNER was critical in the portions as mentioned above. Will plan to observe postoperatively and monitor. Parikh to be remain in place until followup. Will plan for staple removal in approximately a week with pathology likely at the same time I attest to the content of the Intraoperative Record and any orders documented therein. Any exceptions are noted below.
[2024-11-01] MEDS: PROMETHAZINE HCL INJ 25 MG/ML 1 ML VIAL ONE (12:46)
[2024-11-01] MEDS: PROMETHAZINE HCL 6.25 MG in SODIUM CHLORIDE 0.9% 50 ML IV PRN (12:46)
--- NOTE | 2024-11-01 12:52 | Anesthesiology Progress Note ---
Date of Service November 01, 2024 Anesthesia Post Procedure Vital Signs Vital Signs: Temp Pulse Pulse Resp BP Pulse Ox O2 Del Method 11/01/24 12:40 96 H 12 132/83 93 Nasal Cannula 11/01/24 12:30 92 H 12 144/92 H 97 Oxymask 11/01/24 12:20 91 H 22 148/99 H 97 Oxymask 11/01/24 12:10 93 H 17 155/86 H 100 Oxymask 11/01/24 12:02 36.1 C L 96 H 14 144/78 H 96 Oxymask 11/01/24 07:06 36.7 C 77 20 133/72 97 Room Air O2 Flow Rate 11/01/24 12:40 3 11/01/24 12:30 4 11/01/24 12:20 6 11/01/24 12:10 6 11/01/24 12:02 6 11/01/24 07:06 Pain Intensity Lower Abdomen: Pain Intensity: 5 Transfer of Care Handoff Completed per policy Notes Mental Status: alert / awake / arousable Patient Amnestic to Procedure: Yes Nausea / Vomiting: adequately controlled Pain: adequately controlled Airway Patency, RR, SpO2: stable & adequate BP & HR: stable & adequate Hydration State: stable & adequate Anesthetic Complications: no major complications apparent
[2024-11-01 12:55] LABS: Hematocrit (blood only) 39.7 % (42.0-52.0); Hemoglobin 13.6 g/dl (14.0-18.0); Immature Granulocytes # (auto) 0.31 K/uL (0.01-0.20); Immature Granulocytes % (auto) 1.7 %; Mean Corpuscular Hemoglobin 29.2 pg (25.0-34.0); Mean Corpuscular Volume 85.4 fL (80.0-100.0); Platelet Count 203 K/uL (130-400); RDW Standard Deviation 41.1 fL (36.4-46.3); Red Blood Count 4.65 M/uL (4.70-6.10); White Blood Count 18.46 K/ul (4.8-10.8)
[2024-11-01 13:11] LABS: Anion Gap 11.0 (3-11); Blood Urea Nitrogen 20.0 mg/dl (6-23); Calcium 8.9 mg/dl (8.6-10.3); Carbon Dioxide 26.0 mmol/L (21-32); Chloride 94.0 mmol/L (98-107); Creatinine Clr Calc Pharmacy 57.6 ml/min; Glucose 200.0 mg/dl (70-99(Fasting)); Potassium 4.8 mmol/L (3.5-5.1); Sodium 131.0 mmol/L (136-145)
[2024-11-01] MEDS: BUPIVACAINE 0.5 % 5 MG/1 ML MPF 30ML VIAL ONE (13:16)
[2024-11-01] MEDS: FLOSEAL HEMOSTATIC MATRIX 10ML TOP ONE (13:16)
[2024-11-01] MEDS ORDERED: PHARMACY GLYCEMIC MGMT CONSULT PRN (13:43)
[2024-11-01] MEDS ORDERED: IPRATROPIUM BROMIDE/ALBUTEROL respimat INH INH PRN (13:43)
[2024-11-01] MEDS ORDERED: ACETAMINOPHEN 325 MG TAB PO PRN (13:43)
[2024-11-01] MEDS ORDERED: RIZATRIPTAN BENZOATE 10 MG TAB PO PRN (13:43)
[2024-11-01] MEDS ORDERED: MoRPHine SULFATE 2 MG/ML CARP IV PRN (13:43)
[2024-11-01] MEDS: LACTATED RINGER'S 1,000 ML IV SCH (13:58)
[2024-11-01] MEDS ORDERED: IPRATROPIUM BROMIDE HFA INHALER INH PRN (13:59)
[2024-11-01] MEDS ORDERED: ALBUTEROL HFA 8 GM INHALER INH PRN (13:59)
[2024-11-01] MEDS ORDERED: PHENYLEPHRINE 100MCG/ML 5ML SYR ONE (14:01)
[2024-11-01] MEDS ORDERED: CARBOHYDRATES FOR HYPOGLYCEMIA PO PRN (14:30)
[2024-11-01] MEDS ORDERED: GLUCAGON FOR INJ 1 MG VIAL SQ PRN (14:30)
[2024-11-01] MEDS ORDERED: GLUCOSE 40% GEL 15 GM TUBE PO PRN (14:30)
[2024-11-01] MEDS ORDERED: DEXTROSE 50% 50 ML SYRINGE IV PRN (14:30)
[2024-11-01] MEDS ORDERED: GLUCOSE 10 TAB/TUBE PO PRN (14:30)
[2024-11-01] MEDS: ONDANSETRON INJ 2 MG/ML 2 ML VIAL IV PRN (14:57)
[2024-11-01] MEDS: INSULIN ASPART PER UNIT CHARGE SC SCH (15:07)
[2024-11-01] MEDS: DIVALPROEX EXTENDED RELEASE 500 MG TAB PO SCH ×2 (15:20→20:31)
--- NOTE | 2024-11-01 15:31 | Electrocardiogram Report ---
Test Reason : Blood Pressure : */* mmHG Vent. Rate : 76 BPM Atrial Rate : 76 BPM P-R Int : 166 ms QRS Dur : 82 ms QT Int : 378 ms P-R-T Axes : 49 -21 13 degrees QTcB Int : 425 ms Poor data quality, interpretation may be adversely affected Normal sinus rhythm Normal ECG When compared with ECG of 05-Aug-2023 10:05, No significant change was found Confirmed by Larry Sam ([id number]) on 11/01/2024 3:31:28 PM Referred By: Dg Alvarez Confirmed By: Larry Sam
--- NOTE | 2024-11-01 16:24 | Hospitalist Consultation ---
Date of Consultation November 01, 2024 Assessment & Plan (1) Severe persistent asthma: (2) Seizure disorder: Plan #Status post prostatectomy for [place] 3 + 3 prostate cancer Pain, perioperative antibiotics, IV fluid management and VTE Prophyalxis per primary urology team #Hypertension Hold lisinopril if BP < 100 Hold HCTZ if BP < 120 #At risk of diabetes (prediabetes) - HbA1C < 6.5, on metformin as at risk Pharmacy consult for glycemic control by primary team however not clear he needs insulin given he is pre-diabetic #Severe persistent asthma Patient reports currently well controlled Continue on Trelegy or hospital formulary equivalent inhaler #GERD Continue pantoprazole VTE Prophylaxis - per primary urology team Disposition - per primary urology team History of Present Illness Reason for Consultation: Post op, medical management Attending Physician: Dg Alvarez, II, DO History of Present Illness Jarvis Borrero is a 54 year old male s/p Robotic Assisted Laparoscopic Radical Retropubic Prostatectomy performed by Dr Alvarez earlier today. Patient has parikh catheter in place. No significant abdominal pain. No dizziness or lightheadedness. On metformin for pre-diabetes. No prior heart attack of stroke. On simvastatin for hyperlipidemia. He did not take his morning antihypertensives as advised. Allergies Allergy/AdvReac Type Severity Reaction Status Date / Time lamotrigine Allergy Mild Rash Verified 11/01/24 06:59 oxcarbazepine AdvReac Severe Hyponatremi Verified 11/01/24 06:59 a tramadol AdvReac Mild NAUSEA/VOMI Verified 11/01/24 06:59 TING varenicline AdvReac Unknown Unknown Verified 11/01/24 06:59 Home Medications Medication Instructions Recorded Confirmed Type galcanezumab-gnlm 120 mg/mL 120 mg subcut MONTHLY 30 days #1 mL 11/28/23 11/01/24 Rx subcutaneous pen injector (Emgality Pen) rimegepant 75 mg disintegrating 75 mg PO DAILY PRN migraine 11/28/23 11/01/24 Rx tablet (Nurtec ODT) headache #8 tabs ipratropium 20 mcg-albuterol 100 1 puff inhalation Q6H PRN sob #4 12/19/23 11/01/24 Rx mcg/actuation mist for inhalation grams (Combivent Respimat) fluticasone fur. 200 mcg-umeclid 1 inh inhalation DAILY #60 ea 04/16/24 11/01/24 Rx 62.5 mcg-vilant 25 mcg inhalat.powder (Trelegy Ellipta) lisinopril 10 mg tablet 10 mg PO QAM 05/03/24 11/01/24 History pantoprazole 40 mg tablet,delayed 40 mg PO QPM 05/03/24 11/01/24 History release divalproex 500 mg tablet,extended 1,500 mg PO UD 06/20/24 11/01/24 History release 24 hr rizatriptan 10 mg tablet 10 mg PO .COMPLEX PRN migraine 07/19/24 11/01/24 Rx headache #9 tabs acetylcysteine 500 mg capsule 600 mg PO BID 07/26/24 11/01/24 History wzysiibc-cnqh-cgxmq acid 240 1 tab PO DAILY 07/26/24 11/01/24 History mcg-vit K 120 uhr-jwaofx-cjhl 293 tablet (Alive Men's 50 Plus Multivit (vit K)) hydrochlorothiazide 25 mg tablet 25 mg PO DAILY #30 tabs 08/29/24 11/01/24 Rx metformin 500 mg tablet 500 mg PO BID #180 tabs 09/17/24 11/01/24 Rx simvastatin 10 mg tablet 10 mg PO QPM #90 tabs 10/25/24 11/01/24 Rx mirtazapine 15 mg tablet 15 mg PO HS 11/01/24 11/01/24 History Patient History Medical History Pulmonary nodule Hx of migraines Prostate cancer (04/2024) Tobacco abuse Quit May 2024 Sepsis hx 05/2024 Pneumonia 05/2024, after TURP; [place] Seizure disorder ~2022, one episode, collapsed, shaking; follows w/ Neuro for migraines, possibly triggered by low sodium GERD (gastroesophageal reflux disease) [place] (hard of hearing) pt cannot hear without hearing aides History of anesthesia reaction "i get a little goofy from it" Mild neurocognitive disorder Tremor "all over" Anxiety Schizoaffective disorder CKD (chronic kidney disease) stage 2, GFR 60-89 ml/min follows with dr. watson, neph at [facility] Prediabetes Asthma-COPD overlap syndrome daily inhaler and prn has not needed recently BPH w urinary obs/LUTS History of Meniere's disease History of deviated nasal septum surgery to to correct Syncope and collapse hx- 2022 Drug-induced parkinsonism History of seizure reports had 1 seizure due to low sodium level- approx 2021- none since History of tobacco abuse Acute hyponatremia 1500 ml fluid restriction due to sodium Major depressive disorder Hypertension Essential hypertension Dyslipidemia Surgical History S/P TURP 05/10/24 Dr. Alvarez Hx of colonoscopy History of esophagogastroduodenoscopy (EGD) Hx of wisdom tooth extraction History of ear surgery right ear, had nerve clipped to help with meniere's disease History of nasal surgery (1988) due to deviated nasal septum S/P tonsillectomy Family History Father Aortic stenosis, Onset Age: 18 Grandfather (Maternal) Prostate cancer, Onset Age: 80 Surgery; Grandfather (Paternal) Prostate cancer Radiation Sister Thyroid cancer, Onset Age: 30 Surgery; Mother No problems noted. Other Colonic polyp Colorectal cancer Denies family history of Ovarian cancer Myocardial infarction Breast cancer Social History Smoking Status: Former smoker Tobacco Type: Cigarettes Age Started Using Tobacco: 18; Age Quit Using Tobacco: 54; packs per day: 1; Smoking End Date: quit 04/2024; Second Hand Exposure: No; Do You Dip or Chew Tobacco: No; Tobacco Cessation Education Requested by Patient: No Hx Alcohol Use: No (none since 04/3024) Hx Substance Use: No Preferred Language: Maori Communication Ability: Effective Visual Impairment: No Limitations Hearing Ability: Use of Hearing Aid Track [employer] Supervisor Required: No Beliefs That Will Affect Care: None Current Living Situation: Spouse current occupational status: employed current occupation: [employer]; Other Information That Helps Us Care for You: No Feels Safe at Home: Yes Safety Concerns: Feels Safe At This Time Childhood Exposure to Second-Hand Smoke: No Diet: regular Diet Comment: regular caffeine: Yes during the past year weight has: remained stable Dental Care, Regularly: No Physical Activity Frequency: Daily Seatbelt Use: always Gender Identity: Male Assistive Devices: Contacts, Glasses and Hearing Aid - Bilateral Assistive Devices Comment: very [place], will need hearing aids after procedure Physical Exam Constitutional: WD/WN, vitals as above Respiratory: normal respiratory effort, lungs clear to auscultation Cardiovascular: RRR, no murmur, no edema Gastrointestinal (Abdomen): Percussion/Palpation: abdomen soft; abdomen nontender (upper abdomen, lower abdomen not palpated due to recent operation), no guarding and abdomen not rigid Results & Data Results & Data Vital Signs (Past 12 Hours) Vital Signs Temp Pulse Pulse Resp BP Pulse Ox O2 Del Method 11/01/24 15:57 36.6 C 101 H 16 123/86 100 Room Air 11/01/24 14:46 36.5 C 100 H 16 124/86 100 Nasal Cannula 11/01/24 14:27 36.4 C L 102 H 14 122/75 100 Nasal Cannula 11/01/24 13:43 36.5 C 100 H 16 124/84 99 Nasal Cannula 11/01/24 13:15 101 H 13 107/83 97 Nasal Cannula 11/01/24 13:00 36.5 C 88 11 L 154/76 H 97 Nasal Cannula 11/01/24 12:50 93 H 17 143/79 H 95 Nasal Cannula 11/01/24 12:40 96 H 12 132/83 93 Nasal Cannula 11/01/24 12:30 92 H 12 144/92 H 97 Oxymask 11/01/24 12:20 91 H 22 148/99 H 97 Oxymask 11/01/24 12:10 93 H 17 155/86 H 100 Oxymask 11/01/24 12:02 36.1 C L 96 H 14 144/78 H 96 Oxymask 11/01/24 07:06 36.7 C 77 20 133/72 97 Room Air O2 Flow Rate 11/01/24 15:57 11/01/24 14:46 11/01/24 14:27 2 11/01/24 13:43 2 11/01/24 13:15 3 11/01/24 13:00 3 11/01/24 12:50 3 11/01/24 12:40 3 11/01/24 12:30 4 11/01/24 12:20 6 11/01/24 12:10 6 11/01/24 12:02 6 11/01/24 07:06 PG Care Time/CCT Total # of Minutes Spent Total Time Spent with Patient: Total time spent is greater than 50% in coordination of care (as documented) at patient's floor/unit and/or counseling patient: Coding Level of Care Code 27956 IN/OBS CONSULT LVL 3,45M Diagnoses Severe persistent asthma J45.50 Seizure disorder G40.909
[2024-11-01] MEDS: DOCUSATE SODIUM 100 MG CAP PO SCH (20:29)
[2024-11-01] MEDS: FLUTICASONE FUROATE 200MCG 14 PUFFS/INHALER INH SCH (20:30)
[2024-11-01] MEDS: UMECLIDINIUM/VILANTEROL 62.5/25MCG 7 PUFFS/INHALER INH SCH (20:30)
[2024-11-01] MEDS: HEPARIN SOD 5,000 UNIT/0.5 ML VIAL SQ SCH (20:32)
[2024-11-01] MEDS: SIMVASTATIN 10 MG TAB PO SCH (20:32)
[2024-11-01] MEDS: LANTUS PER UNIT CHARGE SC SCH (21:15)
[2024-11-02 06:55] LABS: Hematocrit (blood only) 34.9 % (42.0-52.0); Hemoglobin 11.9 g/dl (14.0-18.0); Immature Granulocytes # (auto) 0.08 K/uL (0.01-0.20); Immature Granulocytes % (auto) 0.8 %; Mean Corpuscular Hemoglobin 28.9 pg (25.0-34.0); Mean Corpuscular Volume 84.7 fL (80.0-100.0); Platelet Count 204 K/uL (130-400); RDW Standard Deviation 42.0 fL (36.4-46.3); Red Blood Count 4.12 M/uL (4.70-6.10); White Blood Count 10.04 K/ul (4.8-10.8)
[2024-11-02 07:31] LABS: Anion Gap 8.0 (3-11); Blood Urea Nitrogen 20.0 mg/dl (6-23); Calcium 8.7 mg/dl (8.6-10.3); Carbon Dioxide 28.0 mmol/L (21-32); Chloride 100.0 mmol/L (98-107); Creatinine Clr Calc Pharmacy 62.0 ml/min; Glucose 124.0 mg/dl (70-99(Fasting)); Potassium 4.7 mmol/L (3.5-5.1); Sodium 136.0 mmol/L (136-145)
[2024-11-02] MEDS ORDERED: hydroCHLOROthiazide 25 MG TAB PO SCH (09:00)
--- NOTE | 2024-11-02 10:53 | Urology Progress Note ---
Date of Service November 02, 2024 Assessment & Plan (1) Prostate cancer: Plan POD #1 s/p robotic prostatectomy with Dr. Alvarez Feeling well, progressing as expected Hospitalist consulted postoperatively for medical management, appreciate assistance Afebrile, mildly tachycardic, normotensive Labs - WBCs 10.04, Hemoglobin 11.9, Creatinine 1.56 Reports minimal pain Tolerating diet Incisions appropriate OK to advance diet as tolerated Encourage OOB/ambulation Continue pain management as needed Maintain Guerrier catheter Will reassess later today with possible discharge home pending patient progression Admission and Anticipated Discharge Date Admission Date: November 01, 2024 Subjective Patient seen at bedside today. Awake and resting in bed on arrival. No acute distress. Guerrier draining clear yellow urine. No fevers. Reports some nausea and chills yesterday after his procedure. Minimal pain. Incisions appropriate. Review of Systems Constitutional: as per Subjective / HPI Genitourinary: + as per Subjective / HPI Physical Exam Constitutional: no acute distress Respiratory: no respiratory distress and no labored breathing Gastrointestinal (Abdomen): Minimal tenderness with palpation. Incisions appropriate. Gauze dressing c/d/i. Neurologic: moves all extremities and awake Psychiatric: A+Ox3, euthymic affect Genitourinary: Guerrier intact and draining clear yellow urine Results & Data Vital Signs (Past 12 Hours) Vital Signs Temp Pulse Pulse Resp BP BP Pulse Ox 11/02/24 07:31 36.7 C 105 H 16 123/79 93 11/02/24 03:21 36.9 C 97 H 16 116/77 100 11/01/24 23:00 37.2 C 98 H 18 122/78 97 O2 Del Method 11/02/24 07:31 Room Air 11/02/24 03:21 Room Air 11/01/24 23:00 Room Air PG Care Time/CCT Total # of Minutes Spent Total Time Spent with Patient: Total time spent is greater than 50% in coordination of care (as documented) at patient's floor/unit and/or counseling patient: Coding Level of Care Code None Diagnoses Prostate cancer C61
[2024-11-02 11:08] VITALS: TEMP 99
--- NOTE | 2024-11-02 13:54 | Pharmacy Report ---
Pharmacy Glycemic Short Note 2 - Date of Service November 02, 2024 - Glycemic Short BSG Results (Last 24 hours): 11/01/24 11/01/24 11/02/24 16:33 20:21 06:15 Glucose 124 H POC Glucose 173 H 118 H 11/02/24 11/02/24 07:47 11:29 Glucose POC Glucose 122 H 101 H OUTPATIENT ANTIDIABETIC REGIMEN: * metformin 500mg po BID HbA1c: 6.1% on 07/06/24 (to be repeated in November per primary care provider) ASSESSMENT: * Jarvis is a 54 year old male who was admitted yesterday for a radical prostatectomy secondary to prostate cancer. (POD #1). Pharmacy was consulted for glycemic management post op yesterday. * BSG preop was 109mg/dL and post op was 118mg/dL. A weight based bolus insulin regimen with a stress of 2 was started and a Lantus scale (0 or 10 units depending on BSG) was added for HS. * He did not receive any Lantus last evening and fasting BSG was 122mg/dL this morning. BSG dropped to 101mg/dL at lunch time despite not receiving any insulin so loosened the correction factor and removed the carb ratio to prevent hypoglycemia. PLAN FOR INPATIENT GLYCEMIC CONTROL: * Hold outpatient oral diabetes medications * Basal insulin * none * Bolus insulin * NovoLog per scale ACHS or Q6hrs while NPO * Goal Range: Low 110 mg/dL - High 140 mg/dL * Correction Factor: 30 mg/dL/unit * Nutritional / Prandial insulin per carb ratio of 1 unit--NONE
--- NOTE | 2024-11-02 18:30 | Hospitalist Progress Note ---
Date of Service November 02, 2024 Assessment & Plan (1) Severe persistent asthma: (2) Seizure disorder: Plan #Status post prostatectomy for [place] 3 + 3 prostate cancer Pain, perioperative antibiotics, IV fluid management and VTE Prophyalxis per primary urology team #Hypertension Held this morning due to low BP but tomorrow: Hold lisinopril if BP < 100 Hold HCTZ if BP < 120 #At risk of diabetes (prediabetes) - HbA1C < 6.5, on metformin as at risk Pharmacy consult for glycemic control by primary team however not clear he needs insulin given he is pre-diabetic #Severe persistent asthma Patient reports currently well controlled Continue on Trelegy or hospital formulary equivalent inhaler #GERD Continue pantoprazole VTE Prophylaxis - per primary urology team Disposition - per primary urology team Admission and Anticipated Discharge Date Admission Date: November 01, 2024 Subjective No acute questions or concerns. No dizziness or lightheadedness Physical Exam Constitutional: WD/WN, vitals as above Respiratory: normal respiratory effort, lungs clear to auscultation Cardiovascular: RRR, no murmur, no edema Gastrointestinal (Abdomen): Percussion/Palpation: abdomen soft; abdomen nontender (upper abdomen, lower abdomen not palpated due to recent operation), no guarding and abdomen not rigid Results & Data Results & Data Vital Signs (Past 12 Hours) Vital Signs Temp Pulse Pulse Resp BP Pulse Ox O2 Del Method 11/02/24 15:27 37.2 C 69 18 141/69 H 98 Room Air 11/02/24 11:07 37.2 C 111 H 18 137/82 97 Room Air 11/02/24 07:31 36.7 C 105 H 16 123/79 93 Room Air PG Care Time/CCT Total # of Minutes Spent Total Time Spent with Patient: Total time spent is greater than 50% in coordination of care (as documented) at patient's floor/unit and/or counseling patient: Coding Level of Care Code 42805 SUB INP/OBS CARE 2/35MIN Diagnoses Severe persistent asthma J45.50 Seizure disorder G40.909
[2024-11-02 23:10] VITALS: RESP 16
[2024-11-03 06:06] LABS: Hematocrit (blood only) 30.0 % (42.0-52.0); Hemoglobin 9.9 g/dl (14.0-18.0); Immature Granulocytes # (auto) 0.11 K/uL (0.01-0.20); Immature Granulocytes % (auto) 1.1 %; Mean Corpuscular Hemoglobin 28.9 pg (25.0-34.0); Mean Corpuscular Volume 87.7 fL (80.0-100.0); Platelet Count 176 K/uL (130-400); RDW Standard Deviation 44.4 fL (36.4-46.3); Red Blood Count 3.42 M/uL (4.70-6.10); White Blood Count 9.97 K/ul (4.8-10.8)
[2024-11-03 06:10] LABS: Anion Gap 6.0 (3-11); Blood Urea Nitrogen 16.0 mg/dl (6-23); Calcium 8.2 mg/dl (8.6-10.3); Carbon Dioxide 28.0 mmol/L (21-32); Chloride 102.0 mmol/L (98-107); Creatinine Clr Calc Pharmacy 64.0 ml/min; Glucose 101.0 mg/dl (70-99(Fasting)); Potassium 4.2 mmol/L (3.5-5.1); Sodium 136.0 mmol/L (136-145)
[2024-11-03 07:13] VITALS: BP 126/79; PULSE 97; O2SAT 93
--- NOTE | 2024-11-03 08:23 | Urology Progress Note ---
Date of Service November 03, 2024 Assessment & Plan (1) Prostate cancer: Plan 54-year-old male who is status post robotic prostatectomy by Dr. Alvarez on 11/01/2024. Afebrile with stable vitals Labs stable. Downtrend in hemoglobin is not unexpected. No concern for active bleeding. Patient would like to go home later today which I think is reasonable as he is tolerating a diet and ambulating. Follow-up with Dr. Alvarez for pathology review. Plan for discharge this afternoon. Admission and Anticipated Discharge Date Admission Date: November 01, 2024 Subjective No acute issues overnight. Afebrile with stable vitals. Labs today show a hemoglobin of 9.9, creatinine of 1.51 which is roughly his baseline. Reports feeling better today. Ambulating. Passing gas. Tolerating diet. Patient would like to go home today. Physical Exam Physical Exam: General: Alert and oriented, no acute distress HEENT: Normocephalic, mucous membranes moist Pulmonary: Nonlabored respirations Abdomen: Nondistended, appropriately tender, incisions clean dry and intact : Guerrier catheter draining clear urine. Extremities: Moves all 4 spontaneously Neuro: No gross deficits Skin: Warm, dry, no rashes noted Results & Data Vital Signs (Past 12 Hours) Vital Signs Temp Pulse Resp BP Pulse Ox O2 Del Method 11/03/24 07:11 37.2 C 97 H 16 126/79 93 Room Air 11/02/24 23:09 37.2 C 105 H 16 127/76 96 Room Air PG Care Time/CCT Total # of Minutes Spent Total Time Spent with Patient: Total time spent is greater than 50% in coordination of care (as documented) at patient's floor/unit and/or counseling patient: Coding Level of Care Code 20029 SUB INP/OBS CARE 2/35MIN Diagnoses Prostate cancer C61
[2024-11-03] MEDS: hydroCHLOROthiazide 25 MG TAB PO SCH (08:37)
--- NOTE | 2024-11-03 11:23 | Discharge Summary ---
Date of Service November 03, 2024 Admission HPI Per Admitting Provider Patient here for procedure. No changes in medical issues. No major changes in urinary issues. Continued issues and concerns. No change in pain or discomfort. No severe fevers or chills. No chest pain or shortness of breath. Risks and benefits discussed at length for procedure. These include bleeding, infection, injury to surrounding tissues or organs, and risks associated with anesthesia. Patient and/or family states understanding and agrees to proceed. Consent and supporting information completed. Admission Exam Per Admitting Provider General: Alert/Arousable. No Acute illness. . HEENT: Inspection normal. Normal inspection of face. Normal inspection of neck. Psychologic: Normal affect/No change in mentation. Respiratory: No use of accessory muscles. No respiratory changes or exacerbation or changes with tachypnea or dyspnea. Cardiovascular: No tachycardia Skin: [place] and Dry. No new rashes or visible lesions. Abdomen: Normal inspection. No guarding. Principal Diagnosis Prostate cancer Discharge Exam General: Alert and oriented, no acute distress HEENT: Normocephalic, mucous membranes moist Pulmonary: Nonlabored respirations Abdomen: Nondistended, appropriately tender, incisions clean dry and intact : Guerrier catheter draining clear urine. Extremities: Moves all 4 spontaneously Neuro: No gross deficits Skin: Warm, dry, no rashes noted Discharge Data Allergies Allergy/AdvReac Type Severity Reaction Status Date / Time lamotrigine Allergy Mild Rash Verified 11/01/24 06:59 oxcarbazepine AdvReac Severe Hyponatremi Verified 11/01/24 06:59 a tramadol AdvReac Mild NAUSEA/VOMI Verified 11/01/24 06:59 TING varenicline AdvReac Unknown Unknown Verified 11/01/24 06:59 Consultations 11/01/24 13:43 Consult Hospitalist Routine Procedures Performed Operation Date: 11/01/24 07:30 Actual Procedures p Robotic Assisted Laparoscopic Radical Retropubic Prostatectomy, Pelvic Lymph Node Dissection, (Not Applicable) - Dg Alvarez DO s Cystoscopy(Not Applicable) - Dg Alvarez DO Hospital Course (1) Prostate cancer: Plan Patient underwent above-noted procedure on 11/01/2024. His diet was advanced and his pain was controlled. His nausea postoperatively resolved. Labs were stable. On postop day 2, patient felt well enough to go home and was tolerating a diet, passing flatus and ambulating. Total Time Total Time Spent Total Time Spent (In Minutes): 10 Discharge Plan Discharge Items Patient Disposition: Home - Self-Care Reason For Visit: Malignant Neoplasm of Prostate/Benign Prostatic Hy Discharge Diagnosis: Prostate cancer Condition on Discharge: Good Activity: Per Instructions section Bathing Comment: Okay to shower. No tub baths or soaks. Sexual Activity: Wait until after follow-up appointment Exercise/Sports: Wait until after follow-up appointment Driving/Machine Use: Do not drive if taking prescription pain medication. Non-emergency contact: Surgeon and Urologist Call non-emergency contact if: you have any medication questions, your symptoms worsen, your pain is not controlled, you have a fever, your wound has increased redness, your wound has increased drainage and your wound pain has increased Follow-up/Referrals: Dg Alvarez DO [Physician] - 11/13/24 1:00 pm Arik Ferraro DO [Primary Care Provider] - Diet: Regular Addtl Attending Provider Instructions: Please take all medications as prescribed and keep all follow-ups as scheduled. Please call our office at [phone] with any questions, concerns or need to reschedule appointments for any reason. We are happy to assist you We have sent an antibiotic to your pharmacy of choice. Please begin antibiotic as prescribed the day BEFORE your scheduled catheter removal at [facility]. Please continue antibiotic every 12 hours until complete. Activity: We recommend having someone with you for the first few days after surgery to help care for you. For the first 2 weeks after surgery, we would like you to get up and walk around your house. However, we recommend limit physical activity that would increase your heart rate. This will allow your body to rest and heal. Take naps if you feel tired. Don't lift anything heavier than 10 pounds, mow the law or ride a bicycle until your follow-up appointment. Please avoid long car rides. Home Care: Unless directed otherwise, drink 6 to 8 glasses of water a day (enough to keep your urine light colored). This will also help keep a healthy flow of urine. We recommend using a stool softener for the first two weeks to avoid constipation. Guerrier Catheter or Suprapubic Catheter care: Keep the catheter well secured with either a leg back or leg strap with large bag. Empty your bag when it's about half full. You may notice some blood in the bag. This is normal after surgery and while the catheter is in place. Use mild soap (such as Dove or Dial) and water to wash the catheter and the head of your penis daily, or more frequently if needed. Return to your normal diet, we encourage good protein intake to promote healing. You may shower as normal. Please avoid tub baths or soaking until catheter removed and incisions well healed. Wearing sweat pants while you have the catheter is recommended, they will be more comfortable. Follow-up Your follow up appointments for having your catheter removed, and follow up with your physician should already be scheduled. If you have any questions regarding this, please contact our office. Your final pathology report will be discussed at your physician follow-up appointment. Call [facility] at [phone] right away if you have any of the following: Chest pain or trouble breathing (call 911 or go to the hospital) Fever of 101F or higher, uncontrolled vomiting Heavy bleeding, clots, or bright red blood from the catheter Catheter that falls out or stops draining Foul-smelling discharge from your catheter Redness, swelling, warmth, or increased pain at your incision site Drainage, pus, or bleeding from your incision Pending Studies at Discharge: Yes Studies:: Pathology Stand-Alone Forms: [facility], Smoking Cessation Medications and DC Order Prescriptions: Continued acetylcysteine 500 mg capsule 600 mg PO BID Trelegy Ellipta 200-62.5-25 mcg blister with device 1 inh inhalation DAILY Qty: 60 5RF Patient Comments: qpm Rx Instructions: WITH A RINSE OF MOUTH AFTERWARDS. rizatriptan 10 mg tablet 10 mg PO .COMPLEX MDD 20mg PRN (Reason: migraine headache) Qty: 9 0RF Rx Instructions: 10 mg orally prn migraine, repeat after two hours prn hydrochlorothiazide 25 mg tablet 25 mg PO DAILY Qty: 30 2RF Patient Comments: not currently taking metformin 500 mg tablet 500 mg PO BID Qty: 180 2RF Emgality Pen 120 mg/mL pen injector 120 mg subcut MONTHLY 30 Days Qty: 1 6RF Patient Comments: prn use Nurtec ODT 75 mg tablet,disintegrating 75 mg PO DAILY PRN (Reason: migraine headache) Qty: 8 5RF Rx Instructions: 75mg po once a day prn acute migraine Alive Men's 50 Plus MV (vit K) 240-120-300 mcg tablet 1 tab PO DAILY simvastatin 10 mg tablet 10 mg PO QPM Qty: 90 3RF Combivent Respimat 20-100 mcg/actuation mist 1 puff INH Q6H PRN (Reason: sob) Qty: 4 2RF divalproex 500 mg tablet extended release 24 hr 1,500 mg PO UD Rx Instructions: 500 mg in am 1,000 mg in pm pantoprazole 40 mg tablet,delayed release (DR/EC) 40 mg PO QPM lisinopril 10 mg tablet 10 mg PO QAM mirtazapine 15 mg tablet 15 mg PO HS Discharge Orders: Discharge Order (Routine); Ordered 11/03/24 Ordered By: Law Gustafson/Other Patient Handouts: Indwelling Urinary Catheter Dc Admission Data Admit Date/Time: 11/01/24 11:58 Attending Provider: Dg Alvarez Admit Provider: Dg Alvarez Primary Care Provider: Arik Ferraro Other Providers: Paolo Arroyo; Law Wong Other Interventions: Discharge Summary Assessment (RN) Last Done: 11/03/24 13:21 Coding Level of Care Code 11254 IN/OBS DISCH 30 MIN/LESS Diagnoses Prostate cancer C61
== END 2024-11-03 14:51 | disposition home or self-care (01) ==
LOC: ASU 06:38 → 3E 11:58 → INTOOBSV 11:58